=== PATIENT | male | born 1945 | race Caucasian/White ===

== ENCOUNTER → 2016-12-29 | Outpatient (REF) | payer MEDICARE, OTHER ==
[~2016-12-29] MED LIST: ASPI325T28 PO; ATEN25TA PO; COPA20IN SC; CRES40TA PO; CYMB60CA3 PO; METH2.5TA PO; OMEP40CA2 PO; [UNRECOGNIZED DRUG - REMARK] PO
[2016-12-29 16:00] LABS: ALBUMIN 3.7 GM/DL (3.2-5.2); ALBUMIN/GLOBULIN RATIO 1.19 (1.00-1.93); ALKALINE PHOSPHATASE 77 U/L (45-117); ALT/SGPT 27 U/L (12-78); ANION GAP 7 MEQ/L (8-16); AST/SGOT 18 U/L (15-37); BILIRUBIN,TOTAL 0.4 MG/DL (0.2-1.0); BLOOD UREA NITROGEN 20 MG/DL (7-18); CALCIUM LEVEL 8.5 MG/DL (8.8-10.2); CARBON DIOXIDE LEVEL 29 MEQ/L (21-32); CHLORIDE LEVEL 106 MEQ/L (98-107); CHOLESTEROL LEVEL 196 MG/DL (<200); CREATININE FOR GFR 1.18 MG/DL (0.70-1.30); GLOMERULAR FILTRATION RATE > 60.0 (>42); GLUCOSE, FASTING 131 MG/DL (83-110); POTASSIUM SERUM 4.5 MEQ/L (3.5-5.1); SODIUM LEVEL 142 MEQ/L (136-145); TOTAL PROTEIN 6.8 GM/DL (6.4-8.2); TRIGLYCERIDES LEVEL 159 MG/DL (<150)
== END ==
LOC: M SFHCSACK 07:58
PROVIDERS: ATTEND Physician Assistant
DX: I10 Essential (primary) hypertension (principal); E78.5 Hyperlipidemia, unspecified; E11.49 Type 2 diabetes mellitus with other diabetic neurological complication; E55.9 Vitamin D deficiency, unspecified

== ENCOUNTER → 2017-06-29 | Outpatient (REF) | payer MEDICARE, OTHER ==
[2017-06-29 16:27] LABS: ALBUMIN 3.5 GM/DL (3.2-5.2); ALBUMIN/GLOBULIN RATIO 1.13 (1.00-1.93); ALKALINE PHOSPHATASE 83 U/L (45-117); ALT/SGPT 34 U/L (12-78); ANION GAP 9 MEQ/L (8-16); AST/SGOT 20 U/L (15-37); BILIRUBIN,TOTAL 0.3 MG/DL (0.2-1.0); BLOOD UREA NITROGEN 23 MG/DL (7-18); CALCIUM LEVEL 8.7 MG/DL (8.8-10.2); CARBON DIOXIDE LEVEL 27 MEQ/L (21-32); CHLORIDE LEVEL 109 MEQ/L (98-107); CHOLESTEROL LEVEL 142 MG/DL (<200); CREATININE FOR GFR 1.11 MG/DL (0.70-1.30); GLOMERULAR FILTRATION RATE > 60.0 (>42); GLUCOSE, FASTING 124 MG/DL (83-110); POTASSIUM SERUM 4.4 MEQ/L (3.5-5.1); SODIUM LEVEL 145 MEQ/L (136-145); TOTAL PROTEIN 6.6 GM/DL (6.4-8.2); TRIGLYCERIDES LEVEL 168 MG/DL (<150)
== END ==
LOC: M SFHCSACK 08:21
PROVIDERS: ATTEND Physician Assistant
DX: I10 Essential (primary) hypertension (principal); E78.5 Hyperlipidemia, unspecified; E11.49 Type 2 diabetes mellitus with other diabetic neurological complication; E55.9 Vitamin D deficiency, unspecified

== ENCOUNTER → 2017-09-30 | Outpatient (REF) | payer MEDICARE, OTHER ==
[2017-09-30 15:09] LABS: BASO # 0.1 10^3/uL (0.0-0.2); BASO % 0.7 % (0.0-1.0); EOS # 0.6 10^3/uL (0.0-0.50); IMMATURE GRANULOCYTE % 0.2 % (0-0); LYMPH # 1.5 10^3/uL (1.5-4.5); LYMPH % 17.2 % (24.0-44.0); MEAN CORPUSCULAR HEMOGLOBIN 32.4 pg (27.0-33.0); MEAN CORPUSCULAR HGB CONC 33.9 g/dl (32.0-36.5); MEAN CORPUSCULAR VOLUME 95.7 fl (80.0-96.0); MONO # 0.7 10^3/uL (0.0-0.8); MONO % 7.8 % (0.0-5.0); NEUTROPHILS % 67.1 % (36.0-66.0); PLATELET COUNT, AUTOMATED 206 10^3/uL (150-450); RED CELL DISTRIBUTION WIDTH 13.1 % (11.5-14.5); WHITE BLOOD COUNT 8.9 10^3/uL (4.0-10.0)
[2017-09-30 15:25] LABS: ALBUMIN 3.7 GM/DL (3.2-5.2); ALBUMIN/GLOBULIN RATIO 1.12 (1.00-1.93); ALKALINE PHOSPHATASE 72 U/L (45-117); ALT/SGPT 26 U/L (12-78); ANION GAP 7 MEQ/L (8-16); AST/SGOT 17 U/L (7-37); BILIRUBIN,TOTAL 0.5 MG/DL (0.2-1.0); BLOOD UREA NITROGEN 19 MG/DL (7-18); CALCIUM LEVEL 8.7 MG/DL (8.8-10.2); CARBON DIOXIDE LEVEL 30 MEQ/L (21-32); CHLORIDE LEVEL 104 MEQ/L (98-107); CHOLESTEROL LEVEL 101 MG/DL (<200); CREATININE FOR GFR 1.11 MG/DL (0.70-1.30); GLOMERULAR FILTRATION RATE > 60.0 (>42); GLUCOSE, FASTING 124 MG/DL (83-110); POTASSIUM SERUM 4.5 MEQ/L (3.5-5.1); SODIUM LEVEL 141 MEQ/L (136-145); TRIGLYCERIDES LEVEL 192 MG/DL (<150)
== END ==
LOC: M SFHCSACK 08:15
PROVIDERS: ATTEND Physician Assistant
DX: I10 Essential (primary) hypertension (principal); E78.5 Hyperlipidemia, unspecified; E11.9 Type 2 diabetes mellitus without complications

== ENCOUNTER 2017-12-29 11:56 | Day surgery (SDC) | payer MEDICARE, OTHER ==
[2017-12-29] MEDS: LR 1,000 ML IV (12:00)
[2017-12-29] MEDS ORDERED: PROPOFOL 200 MG/20 ML VIAL As Ordered ×3 (13:10→13:46)
== END 2017-12-29 14:47 | disposition home or self-care (01) ==
LOC: M OPP 11:56
DX: Z12.11 Encounter for screening for malignant neoplasm of colon (principal); D12.2 Benign neoplasm of ascending colon; D12.4 Benign neoplasm of descending colon; D12.3 Benign neoplasm of transverse colon; I10 Essential (primary) hypertension; G35 Multiple sclerosis; E11.9 Type 2 diabetes mellitus without complications; Z79.82 Long term (current) use of aspirin; Z79.899 Other long term (current) drug therapy
CPT/HCPCS: 45385

== ENCOUNTER → 2017-12-30 | Outpatient (REF) | payer MEDICARE, OTHER ==
[2017-12-30 14:16] LABS: BASO # 0.1 10^3/uL (0.0-0.2); BASO % 0.6 % (0.0-1.0); EOS # 0.5 10^3/uL (0.0-0.50); EOS % 5.4 % (0.0-3.0); HEMATOCRIT 43.3 % (42.0-52.0); HEMOGLOBIN 14.6 g/dl (14.0-18.0); IMMATURE GRANULOCYTE % 0.3 % (0-3.0); LYMPH # 1.9 10^3/uL (1.5-4.5); LYMPH % 19.6 % (24.0-44.0); MEAN CORPUSCULAR HEMOGLOBIN 32.3 pg (27.0-33.0); MEAN CORPUSCULAR HGB CONC 33.7 g/dl (32.0-36.5); MEAN CORPUSCULAR VOLUME 95.8 fl (80.0-96.0); MONO # 0.7 10^3/uL (0.0-0.8); MONO % 7.2 % (0.0-5.0); NEUTROPHILS # 6.4 10^3/uL (1.8-7.7); NEUTROPHILS % 66.9 % (36.0-66.0); PLATELET COUNT, AUTOMATED 209 10^3/uL (150-450); RED BLOOD COUNT 4.52 10^6/uL (4.30-6.10); RED CELL DISTRIBUTION WIDTH 13.4 % (11.5-14.5); WHITE BLOOD COUNT 9.5 10^3/uL (4.0-10.0)
[2017-12-30 14:33] LABS: ALBUMIN 3.6 GM/DL (3.2-5.2); ALBUMIN/GLOBULIN RATIO 1.06 (1.00-1.93); ALKALINE PHOSPHATASE 79 U/L (45-117); ALT/SGPT 30 U/L (12-78); ANION GAP 7 MEQ/L (8-16); AST/SGOT 23 U/L (7-37); BILIRUBIN,TOTAL 0.2 MG/DL (0.2-1.0); BLOOD UREA NITROGEN 21 MG/DL (7-18); CALCIUM LEVEL 8.6 MG/DL (8.8-10.2); CARBON DIOXIDE LEVEL 26 MEQ/L (21-32); CHLORIDE LEVEL 112 MEQ/L (98-107); CREATININE FOR GFR 1.17 MG/DL (0.70-1.30); GLOMERULAR FILTRATION RATE > 60.0 (>42); GLUCOSE, FASTING 140 MG/DL (70-100); POTASSIUM SERUM 4.7 MEQ/L (3.5-5.1); PSA SCREENING 3.59 NG/ML (< 4.0); SODIUM LEVEL 145 MEQ/L (136-145)
[2017-12-30 14:35] LABS: ESTIMATED AVERAGE GLUCOSE 177 MG/DL (60-110); HEMOGLOBIN A1c 7.8 %
[2017-12-30 14:36] LABS: TOTAL 25(OH) VITAMIN D 19.8 NG/ML (30.0-100.0)
== END ==
LOC: M SFHCSACK 08:37
DX: E55.9 Vitamin D deficiency, unspecified (principal); I10 Essential (primary) hypertension; E11.9 Type 2 diabetes mellitus without complications; Z12.5 Encounter for screening for malignant neoplasm of prostate
CPT/HCPCS: 80053

== ENCOUNTER → 2018-04-29 | Outpatient (REF) | payer MEDICARE, OTHER ==
[2018-04-29 12:33] LABS: BASO % 0.4 % (0.0-1.0); EOS # 0.9 10^3/uL (0.0-0.50); EOS % 9.9 % (0.0-3.0); HEMATOCRIT 44.3 % (42.0-52.0); HEMOGLOBIN 14.6 g/dl (13.5-17.5); IMMATURE GRANULOCYTE % 0.4 % (0-3.0); LYMPH # 1.7 10^3/uL (1.5-4.5); LYMPH % 17.8 % (24.0-44.0); MEAN CORPUSCULAR HEMOGLOBIN 32.2 pg (27.0-33.0); MEAN CORPUSCULAR VOLUME 97.8 fl (80.0-96.0); MONO # 0.8 10^3/uL (0.0-0.8); MONO % 8.1 % (0.0-5.0); NEUTROPHILS # 5.9 10^3/uL (1.8-7.7); NEUTROPHILS % 63.4 % (36.0-66.0); PLATELET COUNT, AUTOMATED 162 10^3/uL (150-450); RED BLOOD COUNT 4.53 10^6/uL (4.30-6.10); RED CELL DISTRIBUTION WIDTH 13.2 % (11.5-14.5); WHITE BLOOD COUNT 9.3 10^3/uL (4.0-10.0)
[2018-04-29 13:26] LABS: ALBUMIN 3.7 GM/DL (3.2-5.2); ALBUMIN/GLOBULIN RATIO 1.12 (1.00-1.93); ALKALINE PHOSPHATASE 78 U/L (45-117); ALT/SGPT 28 U/L (12-78); ANION GAP 9 MEQ/L (8-16); AST/SGOT 20 U/L (7-37); BILIRUBIN,TOTAL 0.4 MG/DL (0.2-1.0); BLOOD UREA NITROGEN 28 MG/DL (7-18); CALCIUM LEVEL 8.9 MG/DL (8.8-10.2); CARBON DIOXIDE LEVEL 28 MEQ/L (21-32); CHLORIDE LEVEL 106 MEQ/L (98-107); GLOMERULAR FILTRATION RATE > 60.0 (>42); GLUCOSE, FASTING 127 MG/DL (70-100); POTASSIUM SERUM 4.4 MEQ/L (3.5-5.1); SODIUM LEVEL 143 MEQ/L (136-145)
[2018-04-29 13:39] LABS: TOTAL 25(OH) VITAMIN D 82.3 NG/ML (30.0-100.0)
[2018-04-29 14:14] LABS: ESTIMATED AVERAGE GLUCOSE 160 MG/DL (60-110); HEMOGLOBIN A1c 7.2 %
== END ==
LOC: M LABDRAW1 11:56
DX: I10 Essential (primary) hypertension (principal); E78.5 Hyperlipidemia, unspecified; E11.9 Type 2 diabetes mellitus without complications; E55.9 Vitamin D deficiency, unspecified; Z79.899 Other long term (current) drug therapy
CPT/HCPCS: 80053

== ENCOUNTER → 2018-07-07 | Outpatient (CLI) | payer MEDICARE, OTHER ==
[2018-07-07 15:06] LABS: CREATININE FOR GFR 1.19 MG/DL (0.70-1.30); GLOMERULAR FILTRATION RATE > 60.0 (>42)
[2018-07-07 15:06] LABS: BLOOD UREA NITROGEN 28 MG/DL (7-18)
== END ==
LOC: M SFHCSACK 10:08
DX: N18.9 Chronic kidney disease, unspecified (principal)
CPT/HCPCS: 82565

== ENCOUNTER → 2018-08-09 | Outpatient (REF) | payer MEDICARE, OTHER ==
[2018-08-09 15:20] LABS: ALBUMIN 3.8 GM/DL (3.2-5.2); ALBUMIN/GLOBULIN RATIO 1.27 (1.00-1.93); ALKALINE PHOSPHATASE 69 U/L (45-117); ALT/SGPT 25 U/L (12-78); ANION GAP 6 MEQ/L (8-16); AST/SGOT 20 U/L (7-37); BILIRUBIN,TOTAL 0.4 MG/DL (0.2-1.0); BLOOD UREA NITROGEN 21 MG/DL (7-18); CARBON DIOXIDE LEVEL 28 MEQ/L (21-32); CHLORIDE LEVEL 107 MEQ/L (98-107); CHOLESTEROL LEVEL 108 MG/DL (<200); CREATININE FOR GFR 1.14 MG/DL (0.70-1.30); GLOMERULAR FILTRATION RATE > 60.0 (>42); GLUCOSE, FASTING 148 MG/DL (70-100); HDL CHOLESTEROL 36 MG/DL (>40); LDL CHOLESTEROL 16 MG/DL (<100); NON-HDL-C 72 MG/DL; POTASSIUM SERUM 4.6 MEQ/L (3.5-5.1); SODIUM LEVEL 141 MEQ/L (136-145); TOTAL PROTEIN 6.8 GM/DL (6.4-8.2); TRIGLYCERIDES LEVEL 278 MG/DL (<150)
[2018-08-09 15:22] LABS: BASO # 0.1 10^3/uL (0.0-0.2); BASO % 0.7 % (0.0-1.0); EOS # 0.8 10^3/uL (0.0-0.50); EOS % 8.9 % (0.0-3.0); HEMATOCRIT 44.6 % (42.0-52.0); HEMOGLOBIN 14.7 g/dl (13.5-17.5); IMMATURE GRANULOCYTE % 0.3 % (0-3.0); LYMPH # 1.8 10^3/uL (1.5-4.5); LYMPH % 20.2 % (24.0-44.0); MEAN CORPUSCULAR HEMOGLOBIN 32.4 pg (27.0-33.0); MEAN CORPUSCULAR VOLUME 98.2 fl (80.0-96.0); MONO # 0.6 10^3/uL (0.0-0.8); MONO % 6.9 % (0.0-5.0); NEUTROPHILS # 5.6 10^3/uL (1.8-7.7); PLATELET COUNT, AUTOMATED 189 10^3/uL (150-450); RED BLOOD COUNT 4.54 10^6/uL (4.30-6.10); RED CELL DISTRIBUTION WIDTH 13.6 % (11.5-14.5); WHITE BLOOD COUNT 8.9 10^3/uL (4.0-10.0)
[2018-08-09 15:26] LABS: ESTIMATED AVERAGE GLUCOSE 160 MG/DL (60-110); HEMOGLOBIN A1c 7.2 %; TOTAL 25(OH) VITAMIN D 61.8 NG/ML (30.0-100.0)
[2018-08-09 15:35] LABS: CREATININE, URINE 90.8 MG/DL; MAU/CREAT RATIO 159.7 MCG/MG (0.0-30.0)
== END ==
LOC: M SFHCSACK 08:21
DX: E78.5 Hyperlipidemia, unspecified (principal); I10 Essential (primary) hypertension; E11.9 Type 2 diabetes mellitus without complications; E55.9 Vitamin D deficiency, unspecified
CPT/HCPCS: 80053

== ENCOUNTER → 2019-02-14 | Outpatient (REF) | payer MEDICARE, OTHER ==
[~2019-02-14] MED LIST changes: +ASPI-222 PO; -ASPI325T28 PO; +METH2.5T48 PO; -METH2.5TA PO; +REPA1.7I SC
[2019-02-14 14:32] LABS: BASO # 0.1 10^3/uL (0.0-0.2); BASO % 0.8 % (0.0-1.0); EOS # 0.5 10^3/uL (0.0-0.50); EOS % 6.2 % (0.0-3.0); HEMATOCRIT 43.6 % (42.0-52.0); HEMOGLOBIN 14.4 g/dl (13.5-17.5); LYMPH # 1.8 10^3/uL (1.5-4.5); LYMPH % 21.9 % (24.0-44.0); MEAN CORPUSCULAR HEMOGLOBIN 31.6 pg (27.0-33.0); MEAN CORPUSCULAR VOLUME 95.6 fl (80.0-96.0); MONO # 0.6 10^3/uL (0.0-0.8); MONO % 6.8 % (0.0-5.0); NEUTROPHILS # 5.3 10^3/uL (1.8-7.7); NEUTROPHILS % 63.8 % (36.0-66.0); PLATELET COUNT, AUTOMATED 200 10^3/uL (150-450); RED BLOOD COUNT 4.56 10^6/uL (4.30-6.10); WHITE BLOOD COUNT 8.3 10^3/uL (4.0-10.0)
[2019-02-14 14:41] LABS: ALBUMIN 3.5 GM/DL (3.2-5.2); BILIRUBIN,TOTAL 0.5 MG/DL (0.2-1.0); CALCIUM LEVEL 8.4 MG/DL (8.8-10.2); CHOLESTEROL RISK RATIO 3.775 (<5); CREATININE FOR GFR 1.27 MG/DL (0.70-1.30); GLOMERULAR FILTRATION RATE 58.9 (>42); POTASSIUM SERUM 4.4 MEQ/L (3.5-5.1); TOTAL PROTEIN 7.3 GM/DL (6.4-8.2)
[2019-02-14 15:18] LABS: HEMOGLOBIN A1c 7.4 %
== END ==
LOC: M SFHCSACK 08:19
PROVIDERS: ATTEND Physician Assistant
DX: G35 Multiple sclerosis (principal); E78.5 Hyperlipidemia, unspecified; E11.9 Type 2 diabetes mellitus without complications; E55.9 Vitamin D deficiency, unspecified

== ENCOUNTER → 2019-08-26 | Outpatient (REF) | payer MEDICARE, OTHER ==
[~2019-08-26] MED LIST changes: -ASPI-222 PO; +ASPI-527 PO; -OMEP40CA2 PO; +OMEP40CA97 PO
[2019-08-26 14:39] LABS: BASO % 0.5 % (0.0-1.0); EOS # 0.3 10^3/uL (0.0-0.5); EOS % 4.6 % (0.0-3.0); HEMATOCRIT 42.3 % (42.0-52.0); HEMOGLOBIN 13.9 g/dl (13.5-17.5); LYMPH # 1.3 10^3/uL (1.5-5.0); MEAN CORPUSCULAR HGB CONC 32.9 g/dl (32.0-36.5); MEAN CORPUSCULAR VOLUME 97.2 fl (80.0-96.0); MONO # 0.6 10^3/uL (0.0-0.8); MONO % 7.8 % (0.0-5.0); NEUTROPHILS # 5.1 10^3/uL (1.5-8.5); PLATELET COUNT, AUTOMATED 197 10^3/uL (150-450); RED BLOOD COUNT 4.35 10^6/uL (4.30-6.10); WHITE BLOOD COUNT 7.4 10^3/uL (4.0-10.0)
[2019-08-26 14:51] LABS: ALBUMIN 3.5 GM/DL (3.2-5.2); ALT/SGPT 24 U/L (12-78); BILIRUBIN,TOTAL 0.6 MG/DL (0.2-1.0); BLOOD UREA NITROGEN 23 MG/DL (7-18); CALCIUM LEVEL 8.4 MG/DL (8.8-10.2); CARBON DIOXIDE LEVEL 27 MEQ/L (21-32); CHLORIDE LEVEL 106 MEQ/L (98-107); CHOLESTEROL LEVEL 124 MG/DL (<200); CREATININE FOR GFR 1.19 MG/DL (0.70-1.30); FREE T4 0.86 NG/DL (0.76-1.46); GLOMERULAR FILTRATION RATE > 60.0 (>42); GLUCOSE, FASTING 130 MG/DL (70-100); HDL CHOLESTEROL 40 MG/DL (>40); LDL CHOLESTEROL 44 MG/DL (<100); NON-HDL-C 84 MG/DL; POTASSIUM SERUM 4.3 MEQ/L (3.5-5.1); SODIUM LEVEL 140 MEQ/L (136-145); TOTAL PROTEIN 6.7 GM/DL (6.4-8.2); TRIGLYCERIDES LEVEL 199 MG/DL (<150)
[2019-08-26 14:53] LABS: TOTAL 25(OH) VITAMIN D 68.2 NG/ML (30.0-100.0)
[2019-08-26 15:08] LABS: CREATININE, URINE 92.2 MG/DL
[2019-08-26 15:12] LABS: HEMOGLOBIN A1c 7.8 %
== END ==
LOC: M SFHCSACK 08:29
PROVIDERS: ATTEND Physician Assistant
DX: I10 Essential (primary) hypertension (principal); E78.5 Hyperlipidemia, unspecified; Z83.49 Family history of other endocrine, nutritional and metabolic diseases; E11.9 Type 2 diabetes mellitus without complications; Z12.5 Encounter for screening for malignant neoplasm of prostate; E55.9 Vitamin D deficiency, unspecified
CPT/HCPCS: 36415; 80053; 80061; 82043; 82306; 83036; 84439; 84443; 85025; G0103

== ENCOUNTER → 2020-05-01 | Outpatient (REF) | payer MEDICARE, OTHER ==
[~2020-05-01] MED LIST changes: -REPA1.7I SC; +REPA140I SC
[2020-05-01 13:36] LABS: CALCIUM LEVEL 9.3 MG/DL (8.8-10.2); CREATININE FOR GFR 1.73 MG/DL (0.70-1.30); GLOMERULAR FILTRATION RATE 41.1 (>42); POTASSIUM SERUM 4.6 MEQ/L (3.5-5.1)
[2020-05-01 13:42] LABS: HEMOGLOBIN A1c 8.9 %
== END ==
LOC: M PLALAB 12:56
PROVIDERS: ATTEND Physician Assistant
DX: E11.9 Type 2 diabetes mellitus without complications (principal)

== ENCOUNTER → 2020-10-08 | Outpatient (REF) | payer MEDICARE, OTHER ==
[2020-10-08 10:58] LABS: HEMOGLOBIN A1c 7.8 %
[2020-10-08 11:07] LABS: ALBUMIN 3.7 GM/DL (3.2-5.2); BILIRUBIN,TOTAL 0.5 MG/DL (0.2-1.0); CALCIUM LEVEL 9.3 MG/DL (8.8-10.2); CHOLESTEROL RISK RATIO 4.23 (<5); CREATININE FOR GFR 1.59 MG/DL (0.70-1.30); GLOMERULAR FILTRATION RATE 45.3 (>42); POTASSIUM SERUM 4.4 MEQ/L (3.5-5.1); TOTAL 25(OH) VITAMIN D 63.4 NG/ML (30.0-100.0); TOTAL PROTEIN 7.1 GM/DL (6.4-8.2)
== END ==
LOC: M PLALAB 08:10
PROVIDERS: ATTEND Physician Assistant
DX: Z12.5 Encounter for screening for malignant neoplasm of prostate (principal); I10 Essential (primary) hypertension; E11.9 Type 2 diabetes mellitus without complications; E78.5 Hyperlipidemia, unspecified; E55.9 Vitamin D deficiency, unspecified
CPT/HCPCS: 36415; 80053; 80061; 82306; 83036; G0103

== ENCOUNTER → 2022-05-06 | Outpatient (CLI) | payer MEDICARE, OTHER ==
[~2022-05-06] MED LIST changes: -CYMB60CA3 PO; +CYMB60CA4 PO; +OMEP40CA4 PO; -OMEP40CA97 PO
[2022-05-06 14:45] LABS: CALCIUM LEVEL 8.8 MG/DL (8.8-10.2); CREATININE FOR GFR 1.54 MG/DL (0.70-1.30); GLOMERULAR FILTRATION RATE 46.7 (>42); POTASSIUM SERUM 4.4 MEQ/L (3.5-5.1)
[2022-05-06 15:46] LABS: HEMOGLOBIN A1c 8.9 %
== END ==
LOC: M PLALAB 09:47
PROVIDERS: ATTEND Family Medicine
DX: E11.9 Type 2 diabetes mellitus without complications (principal)

== ENCOUNTER → 2022-06-10 | Outpatient (REF) | payer MEDICARE, OTHER ==
[2022-06-10 13:20] LABS: HEMATOCRIT 47.6 % (42.0-52.0); HEMOGLOBIN 15.5 g/dl (13.5-17.5); MEAN CORPUSCULAR HEMOGLOBIN 31.4 pg (27.0-33.0); MEAN CORPUSCULAR HGB CONC 32.6 g/dl (32.0-36.5); MEAN CORPUSCULAR VOLUME 96.4 fl (80.0-96.0); PLATELET COUNT, AUTOMATED 177 10^3/uL (150-450); RED BLOOD COUNT 4.94 10^6/uL (4.30-6.10); WHITE BLOOD COUNT 8.5 10^3/uL (4.0-10.0)
[2022-06-10 14:08] LABS: CALCIUM LEVEL 9.2 MG/DL (8.8-10.2); CREATININE FOR GFR 1.6 MG/DL (0.70-1.30); GLOMERULAR FILTRATION RATE 44.7 (>42); POTASSIUM SERUM 4.4 MEQ/L (3.5-5.1); PROSTATIC SPECIFIC AG MONITOR 4.98 NG/ML (< 4.00)
[2022-06-10 18:33] LABS: HEMOGLOBIN A1c 8.8 %
== END ==
LOC: M SFHCADAM 11:14
PROVIDERS: ATTEND Family Medicine
DX: E11.65 Type 2 diabetes mellitus with hyperglycemia (principal); N18.32 Chronic kidney disease, stage 3b; R97.20 Elevated prostate specific antigen [PSA]

== ENCOUNTER → 2022-10-16 | Outpatient (REF) | payer MEDICARE, OTHER ==
[2022-10-16 16:08] LABS: APPEARANCE, URINE MANUAL CLEAR (CLEAR); COLOR, URINE MANUAL LT YELLOW (YELLOW); SPECIFIC GRAVITY,URINE MANUAL 1.015 (1.002-1.035)
[2022-10-16 16:09] LABS: BILIRUBIN, URINE MANUAL NEGATIVE (NEGATIVE); BLOOD URINE MANUAL NEGATIVE (NEGATIVE); GLUCOSE, URINE (UA) MANUAL 4+(1000 MG/DL) mg/dL (NEGATIVE); KETONE, URINE MANUAL NEGATIVE (NEGATIVE); LEUKOCYTE ESTERASE, URINE MAN NEGATIVE (NEGATIVE); NITRITE, URINE MANUAL NEGATIVE (NEGATIVE); PROTEIN, URINE MANUAL NEGATIVE (NEGATIVE); UROBILINOGEN, URINE MANUAL NORMAL (NORMAL)
== END ==
LOC: M SFHCADAM 10:34
PROVIDERS: ATTEND Physician Assistant Medical
DX: R97.20 Elevated prostate specific antigen [PSA] (principal); N40.1 Benign prostatic hyperplasia with lower urinary tract symptoms

== ENCOUNTER → 2022-11-24 | Outpatient (REF) | payer MEDICARE, OTHER ==
[2022-11-24 19:04] LABS: APPEARANCE, URINE MANUAL CLEAR (CLEAR); BILIRUBIN, URINE MANUAL NEGATIVE (NEGATIVE); BLOOD URINE MANUAL NEGATIVE (NEGATIVE); COLOR, URINE MANUAL LT YELLOW (YELLOW); GLUCOSE, URINE (UA) MANUAL 4+(1000 MG/DL) mg/dL (NEGATIVE); KETONE, URINE MANUAL NEGATIVE (NEGATIVE); LEUKOCYTE ESTERASE, URINE MAN NEGATIVE (NEGATIVE); NITRITE, URINE MANUAL NEGATIVE (NEGATIVE); PROTEIN, URINE MANUAL NEGATIVE (NEGATIVE); SPECIFIC GRAVITY,URINE MANUAL 1.015 (1.002-1.035); UROBILINOGEN, URINE MANUAL NORMAL (NORMAL)
== END ==
LOC: M SMT 17:03
PROVIDERS: ATTEND Specialist
DX: G35 Multiple sclerosis (principal)

== ENCOUNTER 2022-12-04 23:06 | Inpatient (IN) | payer MEDICARE, OTHER ==
[~2022-12-04] VITALS: Ht 160 cm; Wt 83.1 kg
[2022-12-04 23:49] LABS: BASO # 0.1 10^3/uL (0.0-0.2); BASO % 0.3 % (0.0-1.0); EOS # 0.1 10^3/uL (0.0-0.5); EOS % 0.5 % (0.0-3.0); HEMATOCRIT 45.5 % (42.0-52.0); HEMOGLOBIN 15.3 g/dl (13.5-17.5); LYMPH # 0.5 10^3/uL (1.5-5.0); LYMPH % 3.3 % (24.0-44.0); MEAN CORPUSCULAR HEMOGLOBIN 31.7 pg (27.0-33.0); MEAN CORPUSCULAR HGB CONC 33.6 g/dl (32.0-36.5); MEAN CORPUSCULAR VOLUME 94.4 fl (80.0-96.0); MONO # 1.2 10^3/uL (0.0-0.8); MONO % 8.1 % (2.0-8.0); NEUTROPHILS # 12.9 10^3/uL (1.5-8.5); NEUTROPHILS % 87.3 % (36.0-66.0); PLATELET COUNT, AUTOMATED 162 10^3/uL (150-450); RED BLOOD COUNT 4.82 10^6/uL (4.30-6.10); WHITE BLOOD COUNT 14.8 10^3/uL (4.0-10.0)
[2022-12-05] VITALS (66 sets, daily range): BP systolic 77–119; BP diastolic 49–68; O2SAT 96
[2022-12-05 00:14] LABS: ALBUMIN 3.6 G/DL (3.2-5.2); BILIRUBIN,TOTAL 0.6 MG/DL (0.3-1.2); CREATININE FOR GFR 1.53 MG/DL (0.70-1.30); GLOMERULAR FILTRATION RATE 47.1 (>42); MAGNESIUM LEVEL 1.9 MG/DL (1.8-2.4); POTASSIUM SERUM 4.2 MMOL/L (3.5-5.1); TOTAL PROTEIN 6.8 G/DL (5.7-8.2)
[2022-12-05] MEDS ORDERED: NS 1,000 ML IV ONE ×4 (01:35→14:55)
[2022-12-05] MEDS ORDERED: PANTOPRAZOLE 40MG VIAL IV SCH ×2 (03:00→09:00)
[2022-12-05] MEDS ORDERED: ACETAMINOPHEN TAB 650MG DOSE (2X325MG) PO ONE (03:05)
[2022-12-05] MEDS ORDERED: ISOVUE-370 76% 100ML VIAL As Ordered ONE (03:08)
[2022-12-05] MEDS ORDERED: ONDANSETRON 4MG 2ML VIAL IV ONE (03:10)
[2022-12-05] MEDS ORDERED: cefTRIAXone SOD 1 GM in D5W MINI-BAG PLUS 50 ML IV ONE (04:00)
[2022-12-05 04:20] LABS: CK-MB VALUE MASS 1.5 NG/ML (<3.6)
[2022-12-05] MEDS ORDERED: HYDROMORPHONE HCL 0.5 MG/ 0.5 ML SYRINGE IV PRN (04:40)
[2022-12-05] MEDS ORDERED: PIPERACILLIN/TAZOBACTAM SOD 2.25 GM in D5W MINI-BAG PLUS 50 ML IV SCH (04:40)
[2022-12-05] MEDS ORDERED: GLUCAGON INJ 1MG VIAL SC PRN (04:40)
[2022-12-05] MEDS ORDERED: ACETAMINOPHEN TAB 650MG DOSE (2X325MG) PO PRN (04:40)
[2022-12-05] MEDS ORDERED: GLUCOSE 4GM CHEW TABLET PO PRN (04:40)
[2022-12-05 04:47] LABS: MB/CK RELATIVE INDEX 0.79 (< OR =4)
[2022-12-05] MEDS ORDERED: SODIUM CHLORIDE 0.9% 1000ML IV ONE (05:50)
[2022-12-05] MEDS: PIPERACILLIN/TAZOBACTAM SOD 2.25 GM in D5W MINI-BAG PLUS 50 ML IV SCH ×3 (05:59→17:57)
[2022-12-05] MEDS: INSULIN LISPRO (NovoLOG) PER UNIT SC SCH ×3 (06:23→17:58)
[2022-12-05 06:40] LABS: APPEARANCE, URINE TURBID (CLEAR); BACTERIA, URINE AUTO 2+ (NEGATIVE); BILIRUBIN, URINE AUTO NEGATIVE (NEGATIVE); BLOOD, URINE BLOOD 3+ (NEGATIVE); COLOR, URINE YELLOW (YELLOW); GLUCOSE, URINE (UA) AUTO 3+ mg/dL (NEGATIVE); KETONE, URINE AUTO TRACE mg/dL (NEGATIVE); LEUKOCYTE ESTERASE, URINE AUTO 3+ (NEGATIVE); NITRITE, URINE AUTO NEGATIVE (NEGATIVE); PROTEIN, URINE AUTO 2+ mg/dL (NEGATIVE); RBC, URINE AUTO TNTC /HPF (0-3); SQUAMOUS EPITHELIAL CELL UR AU 1 /HPF (0-6); UROBILINOGEN, URINE AUTO 0.2 mg/dL (0.0-2.0); WBC, URINE AUTO TNTC /HPF (0-3)
[2022-12-05] MEDS: NS 1,000 ML IV SCH ×2 (06:58→15:59)
[2022-12-05] MEDS ORDERED: ACETAMINOPHEN 650MG SUPP PR ONE (07:15)
[2022-12-05] MEDS ORDERED: ACETAMINOPHEN 1000MG 100ML IV BAG IV ONE ×2 (07:30→07:35)
[2022-12-05] MEDS ORDERED: MORPHINE 2 MG/ML 1ML VIAL IV PRN ×3 (07:35→11:05)
[2022-12-05 08:52] LABS: ALBUMIN 2.7 G/DL (3.2-5.2); BILIRUBIN,TOTAL 1.7 MG/DL (0.3-1.2); CALCIUM LEVEL 7.4 MG/DL (8.3-10.6); GLOMERULAR FILTRATION RATE 34.6 (>42); POTASSIUM SERUM 3.8 MMOL/L (3.5-5.1); TOTAL PROTEIN 5.4 G/DL (5.7-8.2)
[2022-12-05] MEDS ORDERED: HEPARIN SOD (PORCINE) 5000UNITS/ML 1ML VIAL/SYRINGE SC SCH (09:00)
[2022-12-05 09:08] LABS: HEMATOCRIT 44.5 % (42.0-52.0); HEMOGLOBIN 14.3 g/dl (13.5-17.5); RED BLOOD COUNT 4.57 10^6/uL (4.30-6.10); WHITE BLOOD COUNT 2.2 10^3/uL (4.0-10.0)
[2022-12-05 09:09] LABS: BASO % 0.4 % (0.0-1.0); EOS % 0.4 % (0.0-3.0); LYMPH # 0.2 10^3/uL (1.5-5.0); LYMPH % 7.6 % (24.0-44.0); MEAN CORPUSCULAR HEMOGLOBIN 31.3 pg (27.0-33.0); MEAN CORPUSCULAR HGB CONC 32.1 g/dl (32.0-36.5); MEAN CORPUSCULAR VOLUME 97.4 fl (80.0-96.0); MONO % 0.9 % (2.0-8.0); NEUTROPHILS % 89.8 % (36.0-66.0)
[2022-12-05 09:32] LABS: PLATELET COUNT, AUTOMATED 88 10^3/uL (150-450)
[2022-12-05] MEDS ORDERED: LIDOCAINE 2% 5ML JELLY UROJET As Ordered ONE (09:33)
[2022-12-05] MEDS ORDERED: ISOVUE-300 61% 100ML VIAL As Ordered ONE (09:34)
[2022-12-05 09:49] LABS: INR 2.12; PROTHROMBIN TIME 24.1 SECONDS (12.5-14.5)
[2022-12-05 09:50] LABS: PARTIAL THROMBOPLASTIN TIME 89.3 SECONDS (24.8-34.2)
[2022-12-05] MEDS ORDERED: PHENYLephrine 500MCG 5ML (100MCG/ML) SYRINGE As Ordered ONE ×3 (10:12→10:41)
[2022-12-05] MEDS ORDERED: propofoL 200 MG/20 ML VIAL As Ordered ONE (10:12)
[2022-12-05] MEDS ORDERED: COPA1INJ SC (10:35)
[2022-12-05] MEDS ORDERED: OMEP1CAP73 PO (10:35)
[2022-12-05] MEDS ORDERED: TAMS1CAP17 PO (10:35)
[2022-12-05] MEDS ORDERED: BASA100I SC (10:35)
[2022-12-05] MEDS ORDERED: JARD1TAB3 PO (10:35)
[2022-12-05] MEDS ORDERED: ROPI1TAB3 PO (10:35)
[2022-12-05] MEDS ORDERED: FURO20TA2 PO (10:35)
[2022-12-05] MEDS ORDERED: ERGO500029 PO (10:35)
[2022-12-05] MEDS ORDERED: HOME MED LIST COMPLETE! XX SCH (10:40)
[2022-12-05] MEDS ORDERED: VASOPRESSIN INJ 20UNITS/ML 1ML VIAL As Ordered ONE ×2 (10:43→12:12)
[2022-12-05] MEDS ORDERED: fentaNYL 100 MCG/2 ML INJECTION IV PRN (11:05)
[2022-12-05] MEDS ORDERED: ONDANSETRON 4MG 2ML VIAL IV PRN (11:05)
[2022-12-05] MEDS ORDERED: LR 1,000 ML IV SCH (11:05)
[2022-12-05] MEDS ORDERED: oxyCODONE 5MG TAB PO PRN (11:05)
[2022-12-05] MEDS: PHENYLEPHRINE 10MG/ML 1ML VIAL IV PRN ×3 (11:43→11:53)
[2022-12-05] MEDS ORDERED: LR 500 ML IV ONE (11:50)
[2022-12-05] MEDS ORDERED: ePHEDrine INJ 50MG/ML 1ML VIAL IV PRN (12:00)
[2022-12-05] MEDS: PHENYLEPHRINE HCL INJ 10 MG in D5W 100 ML IV SCH ×2 (12:08→15:08)
[2022-12-05] MEDS ORDERED: VANCOMYCIN HCL 1,000 MG, VIAL MATE ADAPTER 1 EACH in NS 250 ML IV SCH (13:15)
[2022-12-05] MEDS ORDERED: INSULIN LISPRO (NovoLOG) PER UNIT SC SCH (13:25)
[2022-12-05] MEDS: NOREPINEPHRINE 4MG IN D5 250ML 4 MG in IV 1 EA IV SCH ×6 (13:30→22:10)
[2022-12-05] MEDS ORDERED: VANCOMYCIN HCL 750 MG, VIAL MATE ADAPTER 1 EACH in D5W 250 ML IV ONE ×2 (14:00→15:00)
[2022-12-05 14:23] LABS: BASO # 0.1 10^3/uL (0.0-0.2); BASO % 0.3 % (0.0-1.0); HEMATOCRIT 43.9 % (42.0-52.0); HEMOGLOBIN 13.8 g/dl (13.5-17.5); LYMPH # 0.6 10^3/uL (1.5-5.0); LYMPH % 3.6 % (24.0-44.0); MEAN CORPUSCULAR HEMOGLOBIN 31.3 pg (27.0-33.0); MEAN CORPUSCULAR HGB CONC 31.4 g/dl (32.0-36.5); MEAN CORPUSCULAR VOLUME 99.5 fl (80.0-96.0); MONO # 0.2 10^3/uL (0.0-0.8); MONO % 1.6 % (2.0-8.0); NEUTROPHILS # 14.1 10^3/uL (1.5-8.5); NEUTROPHILS % 93.8 % (36.0-66.0); RED BLOOD COUNT 4.41 10^6/uL (4.30-6.10); WHITE BLOOD COUNT 15.1 10^3/uL (4.0-10.0)
[2022-12-05 14:24] LABS: PLATELET COUNT, AUTOMATED 80 10^3/uL (150-450)
[2022-12-05 14:52] LABS: ALBUMIN 2.4 G/DL (3.2-5.2); BILIRUBIN,TOTAL 2.7 MG/DL (0.3-1.2); CALCIUM LEVEL 7.5 MG/DL (8.3-10.6); CREATININE FOR GFR 2.14 MG/DL (0.70-1.30); POTASSIUM SERUM 3.9 MMOL/L (3.5-5.1); TOTAL PROTEIN 4.9 G/DL (5.7-8.2)
[2022-12-05] MEDS: VASOPRESSIN INJ 20 UNITS in NS 499 ML IV SCH ×2 (15:22→23:06)
[2022-12-05 16:34] LABS: ABG BASE EXCESS -11.8 (-2.0-2.0); ABG HCO3 16.4 MEQ/L (22.0-26.0); ABG O2 SATURATION 92.7 % (95.0-99.0); ABG PARTIAL PRESSURE CO2 45.3 mmHg (35.0-45.0); ABG PARTIAL PRESSURE O2 78.8 mmHg (75.0-100.0); ABG STANDARD HCO3 15.3 MEQ/L (22.0-26.0); ABG TOTAL CO2 17.8 MEQ/L (23.0-31.0)
[2022-12-05 16:35] LABS: ABG pH (ARTERIAL) 7.176 UNITS (7.350-7.450)
[2022-12-05] MEDS ORDERED: VANCOMYCIN INTERMITTENT/PULSE DOSING BY CLINICAL PHARMACIST PER DOSING PROTOCOL XX SCH (16:55)
[2022-12-05 19:23] LABS: ABG BASE EXCESS -11.4 (-2.0-2.0); ABG HCO3 16.6 MEQ/L (22.0-26.0); ABG PARTIAL PRESSURE O2 77.9 mmHg (75.0-100.0); ABG STANDARD HCO3 15.6 MEQ/L (22.0-26.0)
[2022-12-05 19:24] LABS: ABG O2 SATURATION 93.3 % (95.0-99.0); ABG pH (ARTERIAL) 7.185 UNITS (7.350-7.450)
[2022-12-05] MEDS ORDERED: SODIUM BICARBONATE 8.4% INJ 50ML SYRINGE IV STA (19:42)
[2022-12-05] MEDS ORDERED: FUROSEMIDE 40MG/4ML VIAL IV ONE (20:15)
[2022-12-05] MEDS ORDERED: HYDROCORTISONE 100MG/2ML VIAL IV ONE (20:20)
[2022-12-05 20:45] LABS: ABG BASE EXCESS -9.1 (-2.0-2.0); ABG HCO3 16.8 MEQ/L (22.0-26.0); ABG O2 SATURATION 97.1 % (95.0-99.0); ABG PARTIAL PRESSURE CO2 36.4 mmHg (35.0-45.0); ABG PARTIAL PRESSURE O2 94.3 mmHg (75.0-100.0); ABG STANDARD HCO3 17.3 MEQ/L (22.0-26.0); ABG TOTAL CO2 17.9 MEQ/L (23.0-31.0); ABG pH (ARTERIAL) 7.281 UNITS (7.350-7.450)
[2022-12-06] VITALS (97 sets, daily range): BP systolic 79–154; BP diastolic 46–89
[2022-12-06] MEDS: PIPERACILLIN/TAZOBACTAM SOD 2.25 GM in D5W MINI-BAG PLUS 50 ML IV SCH ×2 (01:11→05:39)
[2022-12-06] MEDS: PANTOPRAZOLE 40MG VIAL IV SCH ×2 (02:44→14:27)
[2022-12-06] MEDS: NOREPINEPHRINE 4MG IN D5 250ML 4 MG in IV 1 EA IV SCH ×6 (03:14→21:51)
[2022-12-06 05:52] LABS: VENOUS HCO3 16.6 MEQ/L (23.0-27.0); VENOUS O2 SATURATION 92.1 % (60.0-80.0); VENOUS PARTIAL PRESSURE CO2 35.3 mmHg (38.0-50.0); VENOUS PARTIAL PRESSURE O2 66.3 mmHg (30.0-50.0); VENOUS PH 7.291 UNITS (7.330-7.430); VENOUS STANDARD HCO3 17.3 MEQ/L; VENOUS TOTAL CO2 17.7 MEQ/L (24.0-28.0)
[2022-12-06 05:55] LABS: HEMATOCRIT 44.8 % (42.0-52.0); HEMOGLOBIN 14.7 g/dl (13.5-17.5); MEAN CORPUSCULAR HEMOGLOBIN 31.9 pg (27.0-33.0); MEAN CORPUSCULAR HGB CONC 32.8 g/dl (32.0-36.5); MEAN CORPUSCULAR VOLUME 97.2 fl (80.0-96.0); RED BLOOD COUNT 4.61 10^6/uL (4.30-6.10); WHITE BLOOD COUNT 28.3 10^3/uL (4.0-10.0)
[2022-12-06] MEDS: INSULIN LISPRO (NovoLOG) PER UNIT SC SCH ×5 (06:00→23:42)
[2022-12-06 06:02] LABS: PLATELET COUNT, AUTOMATED 76 10^3/uL (150-450)
[2022-12-06 06:29] LABS: VANCOMYCIN RANDOM 11.4 UG/ML
[2022-12-06 06:35] LABS: ALBUMIN 2.4 G/DL (3.2-5.2); BILIRUBIN,TOTAL 3.8 MG/DL (0.3-1.2); CALCIUM LEVEL 7.4 MG/DL (8.3-10.6); CREATININE FOR GFR 2.34 MG/DL (0.70-1.30); GLOMERULAR FILTRATION RATE 28.8 (>42); MAGNESIUM LEVEL 1.4 MG/DL (1.8-2.4); POTASSIUM SERUM 4.1 MMOL/L (3.5-5.1); TOTAL PROTEIN 5.2 G/DL (5.7-8.2)
[2022-12-06] MEDS: VASOPRESSIN INJ 20 UNITS in NS 499 ML IV SCH ×2 (06:37→13:58)
[2022-12-06] MEDS ORDERED: VANCOMYCIN HCL 1,000 MG, VIAL MATE ADAPTER 1 EACH in D5W 250 ML IV ONE (08:00)
[2022-12-06] MEDS ORDERED: MAG SULF 1GM/100ML (MAG RUN) 1 GM in IV 1 EA IV ONE (08:20)
[2022-12-06] MEDS: HEPARIN SOD (PORCINE) 5000UNITS/ML 1ML VIAL/SYRINGE SQ SCH ×2 (09:24→20:51)
[2022-12-06] MEDS ORDERED: FUROSEMIDE 20MG/2ML VIAL IV ONE (10:50)
[2022-12-06] MEDS ORDERED: ALPRAZolam 0.25 MG TAB PO ONE (11:05)
[2022-12-06] MEDS: PIPERACILLIN/TAZOBACTAM SOD 3.375 GM in D5W MINI-BAG PLUS 50 ML IV SCH ×2 (11:47→18:21)
[2022-12-06] MEDS ORDERED: ACETAMINOPHEN 1000MG 100ML IV BAG IV ONE (14:00)
[2022-12-06] MEDS ORDERED: ACETAMINOPHEN *IV* 1,000 MG IV ONE ×2 (14:10)
[2022-12-06] MEDS ORDERED: NS 500 ML IV ONE (15:00)
[2022-12-06 15:59] LABS: ABG BASE EXCESS -4.7 (-2.0-2.0); ABG HCO3 18.8 MEQ/L (22.0-26.0); ABG O2 SATURATION 97.6 % (95.0-99.0); ABG PARTIAL PRESSURE CO2 30.6 mmHg (35.0-45.0); ABG PARTIAL PRESSURE O2 94.5 mmHg (75.0-100.0); ABG STANDARD HCO3 20.6 MEQ/L (22.0-26.0); ABG TOTAL CO2 19.7 MEQ/L (23.0-31.0); ABG pH (ARTERIAL) 7.406 UNITS (7.350-7.450)
[2022-12-06] MEDS: DEXTROSE 50% 50ML SYRINGE IV PRN (18:20)
[2022-12-06 23:49] LABS: ABG BASE EXCESS -4.9 (-2.0-2.0); ABG HCO3 18.9 MEQ/L (22.0-26.0); ABG O2 SATURATION 98.6 % (95.0-99.0); ABG PARTIAL PRESSURE CO2 31.6 mmHg (35.0-45.0); ABG PARTIAL PRESSURE O2 131.5 mmHg (75.0-100.0); ABG STANDARD HCO3 20.5 MEQ/L (22.0-26.0); ABG TOTAL CO2 19.8 MEQ/L (23.0-31.0); ABG pH (ARTERIAL) 7.394 UNITS (7.350-7.450)
[2022-12-07] VITALS (65 sets, daily range): BP systolic 94–133; BP diastolic 53–102; O2SAT 94
[2022-12-07] MEDS: PIPERACILLIN/TAZOBACTAM SOD 3.375 GM in D5W MINI-BAG PLUS 50 ML IV SCH ×4 (00:36→19:03)
[2022-12-07] MEDS: PANTOPRAZOLE 40MG VIAL IV SCH ×2 (03:51→14:13)
[2022-12-07] MEDS: NOREPINEPHRINE 4MG IN D5 250ML 4 MG in IV 1 EA IV SCH ×6 (05:10→18:30)
[2022-12-07 05:57] LABS: ABG HCO3 21.7 MEQ/L (22.0-26.0); ABG O2 SATURATION 98.4 % (95.0-99.0); ABG PARTIAL PRESSURE CO2 34.1 mmHg (35.0-45.0); ABG PARTIAL PRESSURE O2 121.5 mmHg (75.0-100.0); ABG STANDARD HCO3 22.8 MEQ/L (22.0-26.0); ABG TOTAL CO2 22.7 MEQ/L (23.0-31.0); ABG pH (ARTERIAL) 7.421 UNITS (7.350-7.450)
[2022-12-07] MEDS: INSULIN LISPRO (NovoLOG) PER UNIT SC SCH ×3 (06:00→18:00)
[2022-12-07 06:08] LABS: HEMATOCRIT 41.4 % (42.0-52.0); HEMOGLOBIN 13.7 g/dl (13.5-17.5); MEAN CORPUSCULAR HEMOGLOBIN 31.6 pg (27.0-33.0); MEAN CORPUSCULAR HGB CONC 33.1 g/dl (32.0-36.5); MEAN CORPUSCULAR VOLUME 95.4 fl (80.0-96.0); RED BLOOD COUNT 4.34 10^6/uL (4.30-6.10); WHITE BLOOD COUNT 21.8 10^3/uL (4.0-10.0)
[2022-12-07 06:11] LABS: PLATELET COUNT, AUTOMATED 62 10^3/uL (150-450)
[2022-12-07 06:31] LABS: ALBUMIN 2.4 G/DL (3.2-5.2); BILIRUBIN,TOTAL 2.8 MG/DL (0.3-1.2); CREATININE FOR GFR 2.74 MG/DL (0.70-1.30); MAGNESIUM LEVEL 1.8 MG/DL (1.8-2.4); POTASSIUM SERUM 3.4 MMOL/L (3.5-5.1); TOTAL PROTEIN 5.4 G/DL (5.7-8.2)
[2022-12-07] MEDS: HEPARIN SOD (PORCINE) 5000UNITS/ML 1ML VIAL/SYRINGE SQ SCH ×2 (09:00→21:00)
[2022-12-07] MEDS: DEXTROSE 50% 50ML SYRINGE IV PRN (12:50)
[2022-12-08] VITALS (13 sets, daily range): BP systolic 113–130; BP diastolic 56–67
[2022-12-08] MEDS: PIPERACILLIN/TAZOBACTAM SOD 3.375 GM in D5W MINI-BAG PLUS 50 ML IV SCH ×2 (00:12→05:52)
[2022-12-08] MEDS: NOREPINEPHRINE 4MG IN D5 250ML 4 MG in IV 1 EA IV SCH ×2 (01:10)
[2022-12-08] MEDS: PANTOPRAZOLE 40MG VIAL IV SCH ×2 (03:41→14:23)
[2022-12-08 05:23] LABS: HEMATOCRIT 41.5 % (42.0-52.0); HEMOGLOBIN 13.5 g/dl (13.5-17.5); MEAN CORPUSCULAR HEMOGLOBIN 31.5 pg (27.0-33.0); MEAN CORPUSCULAR HGB CONC 32.5 g/dl (32.0-36.5); MEAN CORPUSCULAR VOLUME 96.7 fl (80.0-96.0); RED BLOOD COUNT 4.29 10^6/uL (4.30-6.10); WHITE BLOOD COUNT 23.3 10^3/uL (4.0-10.0)
[2022-12-08 05:31] LABS: PLATELET COUNT, AUTOMATED 71 10^3/uL (150-450)
[2022-12-08 05:52] LABS: ALBUMIN 2.1 G/DL (3.2-5.2); BILIRUBIN,TOTAL 3.6 MG/DL (0.3-1.2); CALCIUM LEVEL 8.3 MG/DL (8.3-10.6); CREATININE FOR GFR 2.78 MG/DL (0.70-1.30); GLOMERULAR FILTRATION RATE 23.6 (>42); POTASSIUM SERUM 3.4 MMOL/L (3.5-5.1); TOTAL PROTEIN 5.1 G/DL (5.7-8.2)
[2022-12-08] MEDS: INSULIN LISPRO (NovoLOG) PER UNIT SC SCH ×4 (06:00→17:11)
[2022-12-08] MEDS ORDERED: POTASSIUM CHLORIDE 10MEQ SR TABLET PO ONE (07:15)
[2022-12-08] MEDS: KCL 20MEQ IN 100ML SWI (KRUN) 20 MEQ in IV 1 EA IV SCH ×4 (07:37→08:43)
[2022-12-08] MEDS ORDERED: VANCOMYCIN HCL 1,000 MG, VIAL MATE ADAPTER 1 EACH in NS 250 ML IV SCH (07:45)
[2022-12-08] MEDS: HEPARIN SOD (PORCINE) 5000UNITS/ML 1ML VIAL/SYRINGE SQ SCH ×2 (08:43→20:37)
[2022-12-08] MEDS ORDERED: ROSUVASTATIN 10 MG TAB (CRESTOR) PO SCH (09:00)
[2022-12-08] MEDS ORDERED: D5W/0.45% SODIUM CHLORIDE 1,000 ML IV SCH (09:10)
[2022-12-08 10:34] LABS: MAGNESIUM LEVEL 1.9 MG/DL (1.8-2.4)
[2022-12-08] MEDS ORDERED: D5W 1,000 ML IV SCH (10:50)
[2022-12-08 11:00] LABS: C REACTIVE PROTEIN QUANTITATIV 34.7 MG/DL (<1.0)
[2022-12-08] MEDS ORDERED: VANCOMYCIN HCL 750 MG, VIAL MATE ADAPTER 1 EACH in D5W 250 ML IV SCH (11:00)
[2022-12-08 12:47] LABS: INR 1.01; PROTHROMBIN TIME 13.5 SECONDS (12.5-14.5)
[2022-12-08 12:48] LABS: PARTIAL THROMBOPLASTIN TIME 31.5 SECONDS (24.8-34.2)
[2022-12-08 13:17] LABS: HEPATITIS B SURFACE ANTIGEN NEGATIVE (NEGATIVE)
[2022-12-08] MEDS: CEFEPIME HCL 1 GM in D5W MINI-BAG PLUS 50 ML IV SCH (14:23)
[2022-12-08] MEDS ORDERED: BARIUM SULFATE 700 MG TABLET (E-Z-DISK) As Ordered ONE (14:46)
[2022-12-08] MEDS ORDERED: VARIBAR PUDDING 40% w/v 230ML TUBE As Ordered ONE (14:46)
[2022-12-08] MEDS ORDERED: VARIBAR NECTAR 40% w/v 240ML SUSP BTL As Ordered ONE (14:46)
[2022-12-08] MEDS ORDERED: E-Z-PAQUE 96% w/w SUSP 176GM BTL As Ordered ONE (14:46)
[2022-12-09] VITALS: BP 125/64
[2022-12-09] MEDS: CEFEPIME HCL 1 GM in D5W MINI-BAG PLUS 50 ML IV SCH ×2 (01:10→15:46)
[2022-12-09] MEDS: INSULIN LISPRO (NovoLOG) PER UNIT SC SCH ×4 (01:11→17:22)
[2022-12-09] MEDS: PANTOPRAZOLE 40MG VIAL IV SCH ×2 (03:53→15:46)
[2022-12-09 04:00] VITALS: BP 123/75
[2022-12-09 06:18] LABS: HEMATOCRIT 40.2 % (42.0-52.0); HEMOGLOBIN 13.5 g/dl (13.5-17.5); MEAN CORPUSCULAR HEMOGLOBIN 31.7 pg (27.0-33.0); MEAN CORPUSCULAR HGB CONC 33.6 g/dl (32.0-36.5); MEAN CORPUSCULAR VOLUME 94.4 fl (80.0-96.0); RED BLOOD COUNT 4.26 10^6/uL (4.30-6.10); WHITE BLOOD COUNT 13.1 10^3/uL (4.0-10.0)
[2022-12-09 06:20] LABS: PLATELET COUNT, AUTOMATED 64 10^3/uL (150-450)
[2022-12-09 06:44] LABS: ALBUMIN 2.4 G/DL (3.2-5.2); BILIRUBIN,TOTAL 2.2 MG/DL (0.3-1.2); CALCIUM LEVEL 8.7 MG/DL (8.3-10.6); CREATININE FOR GFR 2.42 MG/DL (0.70-1.30); GLOMERULAR FILTRATION RATE 27.7 (>42); MAGNESIUM LEVEL 1.8 MG/DL (1.8-2.4); PHOSPHORUS LEVEL 1.2 MG/DL (2.4-5.1); POTASSIUM SERUM 3.5 MMOL/L (3.5-5.1); TOTAL PROTEIN 5.7 G/DL (5.7-8.2)
[2022-12-09 08:05] VITALS: BP 135/75
[2022-12-09] MEDS: KCL 20MEQ IN D5W 1000ML 1,000 ML IV SCH ×2 (08:25→19:00)
[2022-12-09] MEDS ORDERED: POTASSIUM PHOSPHATE INJ 30 MMOL in D5W 500 ML IV ONE (10:00)
[2022-12-09] MEDS: AMOXICILLIN 500 MG CAP PO SCH ×2 (10:54→21:06)
[2022-12-09 12:27] VITALS: BP 138/72
[2022-12-09 15:56] VITALS: BP 130/66
[2022-12-09 16:41] LABS: CALCIUM LEVEL 8.2 MG/DL (8.3-10.6); CREATININE FOR GFR 2.23 MG/DL (0.70-1.30); GLOMERULAR FILTRATION RATE 30.5 (>42); POTASSIUM SERUM 3.7 MMOL/L (3.5-5.1)
[2022-12-09 20:00] VITALS: BP 157/69
[2022-12-09] MEDS: LEVEMIR (INSULIN DETEMIR) 1 UNITS/0.01ML SC SCH (21:06)
[2022-12-10] VITALS (8 sets, daily range): BP systolic 125–139; BP diastolic 69–78
[2022-12-10] MEDS: INSULIN LISPRO (NovoLOG) PER UNIT SC SCH ×4 (00:14→19:12)
[2022-12-10] MEDS: CEFEPIME HCL 1 GM in D5W MINI-BAG PLUS 50 ML IV SCH ×2 (01:51→14:42)
[2022-12-10] MEDS: PANTOPRAZOLE 40MG VIAL IV SCH ×2 (03:15→14:42)
[2022-12-10] MEDS: KCL 20MEQ IN D5W 1000ML 1,000 ML IV SCH ×2 (05:00→14:44)
[2022-12-10 06:28] LABS: BASO # 0.1 10^3/uL (0.0-0.2); BASO % 0.6 % (0.0-1.0); EOS # 0.3 10^3/uL (0.0-0.5); EOS % 3.3 % (0.0-3.0); HEMOGLOBIN 13.7 g/dl (13.5-17.5); LYMPH # 1.9 10^3/uL (1.5-5.0); LYMPH % 18.9 % (24.0-44.0); MEAN CORPUSCULAR HEMOGLOBIN 31.8 pg (27.0-33.0); MEAN CORPUSCULAR HGB CONC 33.4 g/dl (32.0-36.5); MEAN CORPUSCULAR VOLUME 95.1 fl (80.0-96.0); MONO # 1.1 10^3/uL (0.0-0.8); MONO % 11.2 % (2.0-8.0); NEUTROPHILS # 6.3 10^3/uL (1.5-8.5); NEUTROPHILS % 63.9 % (36.0-66.0); PLATELET COUNT, AUTOMATED 83 10^3/uL (150-450); RED BLOOD COUNT 4.31 10^6/uL (4.30-6.10); WHITE BLOOD COUNT 9.9 10^3/uL (4.0-10.0)
[2022-12-10 06:56] LABS: ALBUMIN 2.1 G/DL (3.2-5.2); BILIRUBIN,TOTAL 1.6 MG/DL (0.3-1.2); CALCIUM LEVEL 8.7 MG/DL (8.3-10.6); CREATININE FOR GFR 2.01 MG/DL (0.70-1.30); GLOMERULAR FILTRATION RATE 34.4 (>42); POTASSIUM SERUM 3.8 MMOL/L (3.5-5.1); TOTAL PROTEIN 5.4 G/DL (5.7-8.2)
[2022-12-10] MEDS: AMOXICILLIN 500 MG CAP PO SCH ×2 (09:10→21:56)
[2022-12-10] MEDS ORDERED: INSULIN LISPRO (NovoLOG) PER UNIT SC SCH (21:00)
[2022-12-10] MEDS: LEVEMIR (INSULIN DETEMIR) 1 UNITS/0.01ML SC SCH (21:55)
[2022-12-11] MEDS: CEFEPIME HCL 1 GM in D5W MINI-BAG PLUS 50 ML IV SCH ×2 (02:03→14:45)
[2022-12-11] MEDS: PANTOPRAZOLE 40MG VIAL IV SCH ×2 (02:47→14:45)
[2022-12-11 03:54] VITALS: BP 120/72
[2022-12-11 05:50] LABS: BASO % 0.3 % (0.0-1.0); EOS # 0.3 10^3/uL (0.0-0.5); EOS % 3.2 % (0.0-3.0); HEMATOCRIT 43.7 % (42.0-52.0); HEMOGLOBIN 14.1 g/dl (13.5-17.5); LYMPH # 2.1 10^3/uL (1.5-5.0); LYMPH % 20.2 % (24.0-44.0); MEAN CORPUSCULAR HGB CONC 32.3 g/dl (32.0-36.5); MONO # 1.2 10^3/uL (0.0-0.8); MONO % 11.4 % (2.0-8.0); NEUTROPHILS # 6.4 10^3/uL (1.5-8.5); NEUTROPHILS % 63.2 % (36.0-66.0); PLATELET COUNT, AUTOMATED 118 10^3/uL (150-450); RED BLOOD COUNT 4.55 10^6/uL (4.30-6.10); WHITE BLOOD COUNT 10.1 10^3/uL (4.0-10.0)
[2022-12-11] MEDS: KCL 20MEQ IN D5W 1000ML 1,000 ML IV SCH (06:04)
[2022-12-11 06:06] LABS: ALBUMIN 2.2 G/DL (3.2-5.2); BILIRUBIN,TOTAL 1.3 MG/DL (0.3-1.2); CALCIUM LEVEL 8.2 MG/DL (8.3-10.6); CREATININE FOR GFR 1.62 MG/DL (0.70-1.30); GLOMERULAR FILTRATION RATE 44.1 (>42); TOTAL PROTEIN 5.6 G/DL (5.7-8.2)
[2022-12-11 07:50] VITALS: BP 124/68
[2022-12-11] MEDS ORDERED: AMOXICILLIN SUSP 250MG/5ML 100ML BOTTLE (FOR INPATIENT ORDERS) PO SCH (09:00)
[2022-12-11] MEDS: INSULIN LISPRO (NovoLOG) PER UNIT SC SCH ×2 (10:26→13:08)
[2022-12-11 11:41] VITALS: BP 136/76
[2022-12-11] MEDS ORDERED: AMOX250REC PO (14:48)
[2022-12-11] MEDS ORDERED: CEFE1INJ2 IV (14:48)
== END 2022-12-11 16:10 | DRG 853 ==
LOC: M ED 23:06 → M ED INP 12-05 04:04 → M PCU 12-05 05:08 → M ICU 12-05 13:25 → M PCU 12-10 17:35
PROVIDERS: ADMIT Internal Medicine; ATTEND Internal Medicine
PROC: 0TC68ZZ Extirpation of Matter from Right Ureter, Via Natural or Artificial Opening Endoscopic (ICD-10-PCS; 2022-12-05)
PROC: 02HV33Z Insertion of Infusion Device into Superior Vena Cava, Percutaneous Approach (ICD-10-PCS; 2022-12-05)
PROC: 0T768DZ Dilation of Right Ureter with Intraluminal Device, Via Natural or Artificial Opening Endoscopic (ICD-10-PCS; principal; 2022-12-05 09:44)
PROC: B246ZZZ Ultrasonography of Right and Left Heart (ICD-10-PCS; 2022-12-06)
DX: A41.59 Other Gram-negative sepsis (principal); J96.01 Acute respiratory failure with hypoxia; D65 Disseminated intravascular coagulation [defibrination syndrome]; I77.72 Dissection of iliac artery; K72.00 Acute and subacute hepatic failure without coma; R65.21 Severe sepsis with septic shock; N13.6 Pyonephrosis; E87.20 Acidosis, unspecified; N17.9 Acute kidney failure, unspecified; N39.0 Urinary tract infection, site not specified; G72.81 Critical illness myopathy; E87.0 Hyperosmolality and hypernatremia; R33.9 Retention of urine, unspecified; R91.1 Solitary pulmonary nodule; G35 Multiple sclerosis; I25.10 Atherosclerotic heart disease of native coronary artery without angina pectoris; I72.3 Aneurysm of iliac artery; K57.30 Diverticulosis of large intestine without perforation or abscess without bleeding; K80.20 Calculus of gallbladder without cholecystitis without obstruction; I12.9 Hypertensive chronic kidney disease with stage 1 through stage 4 chronic kidney disease, or unspecified chronic kidney disease; E11.22 Type 2 diabetes mellitus with diabetic chronic kidney disease; N18.9 Chronic kidney disease, unspecified; E78.00 Pure hypercholesterolemia, unspecified; K21.9 Gastro-esophageal reflux disease without esophagitis; E87.6 Hypokalemia; N40.1 Benign prostatic hyperplasia with lower urinary tract symptoms; E83.39 Other disorders of phosphorus metabolism; B95.2 Enterococcus as the cause of diseases classified elsewhere; Z95.1 Presence of aortocoronary bypass graft; Z79.82 Long term (current) use of aspirin; Z79.899 Other long term (current) drug therapy; Z88.8 Allergy status to other drugs, medicaments and biological substances

== ENCOUNTER 2022-12-11 12:59 | Inpatient (IN) | payer MEDICARE, OTHER ==
[~2022-12-11] VITALS: Ht 160 cm; Wt 80.2 kg
[~2022-12-11 12:59] MED LIST changes: +BASA100I SC; +COPA1INJ SC; +ERGO500029 PO; +FURO20TA2 PO; +JARD1TAB3 PO; +OMEP1CAP73 PO; +ROPI1TAB3 PO; +TAMS1CAP17 PO
[2022-12-11] MEDS ORDERED: CEFE1INJ2 IV (14:48)
[2022-12-11] MEDS ORDERED: AMOX250REC PO (14:48)
[2022-12-11 16:10] VITALS: BP 131/75
[2022-12-11] MEDS ORDERED: DEXTROSE 50% 50ML SYRINGE IV PRN (16:30)
[2022-12-11] MEDS ORDERED: GLUCOSE 4GM CHEW TABLET PO PRN (16:30)
[2022-12-11] MEDS ORDERED: GLUCAGON INJ 1MG VIAL SC PRN (16:30)
[2022-12-11] MEDS: INSULIN LISPRO (NovoLOG) PER UNIT SC SCH ×2 (19:35→20:24)
[2022-12-11 20:00] VITALS: BP 137/87
[2022-12-11] MEDS: ACETAMINOPHEN TAB 650MG DOSE (2X325MG) PO PRN (20:22)
[2022-12-11] MEDS: DULoxetine 30MG CAPSULE (CYMBALTA) PO SCH (20:22)
[2022-12-11] MEDS: SENNA 8.6 MG TAB (SENOKOT) PO SCH (20:22)
[2022-12-11] MEDS: rOPINIRole 1MG TAB PO SCH (20:22)
[2022-12-11] MEDS: DOCUSATE SODIUM 100MG CAPSULE PO SCH (20:22)
[2022-12-11] MEDS: atenoloL 25 MG TAB PO SCH (20:23)
[2022-12-11] MEDS: LEVEMIR (INSULIN DETEMIR) 1 UNITS/0.01ML SC SCH (20:23)
[2022-12-11] MEDS: AUGMENTIN SUSP POWDER 250MG/5ML BTL 75ML PO SCH (20:23)
[2022-12-11] MEDS: REMEDY PHYTOPLEX Z-GUARD PASTE 113GM TUBE (FROM STOREROOM PRODUCT) TOP SCH (20:27)
[2022-12-12] MEDS ORDERED: CEFEPIME HCL 1 GM in D5W MINI-BAG PLUS 50 ML IV SCH (02:00)
[2022-12-12 06:00] VITALS: BP 152/76
[2022-12-12 06:30] LABS: BASO # 0.1 10^3/uL (0.0-0.2); BASO % 0.7 % (0.0-1.0); EOS # 0.4 10^3/uL (0.0-0.5); EOS % 3.1 % (0.0-3.0); HEMATOCRIT 43.7 % (42.0-52.0); HEMOGLOBIN 14.3 g/dl (13.5-17.5); LYMPH # 1.8 10^3/uL (1.5-5.0); LYMPH % 15.1 % (24.0-44.0); MEAN CORPUSCULAR HEMOGLOBIN 31.5 pg (27.0-33.0); MEAN CORPUSCULAR HGB CONC 32.7 g/dl (32.0-36.5); MEAN CORPUSCULAR VOLUME 96.3 fl (80.0-96.0); MONO # 1.3 10^3/uL (0.0-0.8); MONO % 11.1 % (2.0-8.0); NEUTROPHILS # 8.1 10^3/uL (1.5-8.5); NEUTROPHILS % 67.9 % (36.0-66.0); PLATELET COUNT, AUTOMATED 167 10^3/uL (150-450); RED BLOOD COUNT 4.54 10^6/uL (4.30-6.10); WHITE BLOOD COUNT 11.9 10^3/uL (4.0-10.0)
[2022-12-12 06:54] LABS: ALBUMIN 2.4 G/DL (3.2-5.2); BILIRUBIN,TOTAL 1.2 MG/DL (0.3-1.2); CALCIUM LEVEL 8.5 MG/DL (8.3-10.6); CREATININE FOR GFR 1.56 MG/DL (0.70-1.30); GLOMERULAR FILTRATION RATE 46.1 (>42); POTASSIUM SERUM 4.5 MMOL/L (3.5-5.1); TOTAL PROTEIN 5.9 G/DL (5.7-8.2)
[2022-12-12] MEDS ORDERED: HOME MED LIST COMPLETE! XX SCH (08:40)
[2022-12-12] MEDS: ROSUVASTATIN 10 MG TAB (CRESTOR) PO SCH (08:54)
[2022-12-12] MEDS: DULoxetine 30MG CAPSULE (CYMBALTA) PO SCH ×2 (08:54→22:08)
[2022-12-12] MEDS: DOCUSATE SODIUM 100MG CAPSULE PO SCH ×2 (08:55→21:00)
[2022-12-12] MEDS: INSULIN LISPRO (NovoLOG) PER UNIT SC SCH ×4 (08:55→20:50)
[2022-12-12] MEDS: OMEPRAZOLE 20MG CAP PO SCH (08:55)
[2022-12-12] MEDS: TAMSULOSIN 0.4 MG CAP PO SCH (08:55)
[2022-12-12] MEDS: AUGMENTIN SUSP POWDER 250MG/5ML BTL 75ML PO SCH ×2 (08:55→22:10)
[2022-12-12] MEDS: atenoloL 25 MG TAB PO SCH ×2 (08:56→22:08)
[2022-12-12] MEDS: REMEDY PHYTOPLEX Z-GUARD PASTE 113GM TUBE (FROM STOREROOM PRODUCT) TOP SCH ×3 (08:57→22:09)
[2022-12-12] MEDS ORDERED: FUROSEMIDE 20 MG TAB PO SCH (09:00)
[2022-12-12 14:00] VITALS: BP 132/72
[2022-12-12] MEDS: COMBIVENT RESPIMAT 100-20MCG INHALER 4GM INH SCH ×2 (14:57→19:21)
[2022-12-12] MEDS ORDERED: D5W 1,000 ML IV ONE (15:00)
[2022-12-12] MEDS ORDERED: diphenhydrAMINE 25MG CAP PO ONE (15:20)
[2022-12-12] MEDS ORDERED: diphenhydrAMINE 25MG CAP PO PRN (15:20)
[2022-12-12] MEDS: CEFEPIME HCL 2 GM in D5W MINI-BAG PLUS 50 ML IV SCH (15:22)
[2022-12-12] MEDS: guaiFENesin SYRUP 200MG 10ML UDC PO SCH ×2 (15:22→22:06)
[2022-12-12] MEDS: SALIVA SUBSTITUTE(MOUTHKOTE) BTL MT SCH ×2 (17:00→21:00)
[2022-12-12] MEDS: MAGIC MOUTHWASH SUSPENSION BTL SSP SCH (17:30)
[2022-12-12] MEDS: RIVAROXABAN 10MG TAB (XARELTO) PO SCH (18:49)
[2022-12-12] MEDS: COPAXONE 40 MG SC SCH (18:49)
[2022-12-12 20:00] VITALS: BP 117/67
[2022-12-12] MEDS: SENNA 8.6 MG TAB (SENOKOT) PO SCH (22:06)
[2022-12-12] MEDS: LEVEMIR (INSULIN DETEMIR) 1 UNITS/0.01ML SC SCH (22:07)
[2022-12-12] MEDS: ANUSOL HC CREAM 30GM TOP SCH (22:07)
[2022-12-12] MEDS: rOPINIRole 1MG TAB PO SCH (22:08)
[2022-12-12] MEDS: VANICREAM MOISTURIZING SKIN CREAM 113GM TUBE TOP SCH (22:26)
[2022-12-13] MEDS: CEFEPIME HCL 2 GM in D5W MINI-BAG PLUS 50 ML IV SCH ×2 (01:20→14:45)
[2022-12-13 06:00] VITALS: BP 122/63
[2022-12-13] MEDS: COMBIVENT RESPIMAT 100-20MCG INHALER 4GM INH SCH ×3 (07:45→19:28)
[2022-12-13 07:58] LABS: CALCIUM LEVEL 8.3 MG/DL (8.3-10.6); CREATININE FOR GFR 1.59 MG/DL (0.70-1.30); GLOMERULAR FILTRATION RATE 45.1 (>42); POTASSIUM SERUM 4.3 MMOL/L (3.5-5.1)
[2022-12-13] MEDS: guaiFENesin SYRUP 200MG 10ML UDC PO SCH ×3 (08:08→20:41)
[2022-12-13] MEDS: DULoxetine 30MG CAPSULE (CYMBALTA) PO SCH ×2 (08:09→20:41)
[2022-12-13] MEDS: ROSUVASTATIN 10 MG TAB (CRESTOR) PO SCH (08:09)
[2022-12-13] MEDS: atenoloL 25 MG TAB PO SCH ×2 (08:10→20:42)
[2022-12-13] MEDS: TAMSULOSIN 0.4 MG CAP PO SCH (08:10)
[2022-12-13] MEDS: OMEPRAZOLE 20MG CAP PO SCH (08:10)
[2022-12-13] MEDS: INSULIN LISPRO (NovoLOG) PER UNIT SC SCH ×4 (08:11→20:43)
[2022-12-13] MEDS: MAGIC MOUTHWASH SUSPENSION BTL SSP SCH ×3 (08:11→18:11)
[2022-12-13] MEDS: DOCUSATE SODIUM 100MG CAPSULE PO SCH ×2 (08:12→20:43)
[2022-12-13] MEDS: VANICREAM MOISTURIZING SKIN CREAM 113GM TUBE TOP SCH ×2 (08:14→20:46)
[2022-12-13] MEDS: ANUSOL HC CREAM 30GM TOP SCH ×2 (08:14→20:45)
[2022-12-13] MEDS: REMEDY PHYTOPLEX Z-GUARD PASTE 113GM TUBE (FROM STOREROOM PRODUCT) TOP SCH ×3 (08:14→20:45)
[2022-12-13] MEDS: SALIVA SUBSTITUTE(MOUTHKOTE) BTL MT SCH (08:18)
[2022-12-13] MEDS: AUGMENTIN SUSP POWDER 250MG/5ML BTL 75ML PO SCH ×2 (08:18→20:43)
[2022-12-13 14:00] VITALS: BP 140/77
[2022-12-13] MEDS: RIVAROXABAN 10MG TAB (XARELTO) PO SCH (18:10)
[2022-12-13 20:00] VITALS: BP 116/60
[2022-12-13] MEDS: rOPINIRole 1MG TAB PO SCH (20:41)
[2022-12-13] MEDS: SENNA 8.6 MG TAB (SENOKOT) PO SCH (20:43)
[2022-12-13] MEDS: LEVEMIR (INSULIN DETEMIR) 1 UNITS/0.01ML SC SCH (20:44)
[2022-12-14] MEDS: CEFEPIME HCL 2 GM in D5W MINI-BAG PLUS 50 ML IV SCH ×2 (02:10→14:30)
[2022-12-14 06:00] VITALS: BP 132/64
[2022-12-14] MEDS: COMBIVENT RESPIMAT 100-20MCG INHALER 4GM INH SCH ×3 (07:39→19:51)
[2022-12-14] MEDS: INSULIN LISPRO (NovoLOG) PER UNIT SC SCH ×4 (08:39→20:10)
[2022-12-14] MEDS: MAGIC MOUTHWASH SUSPENSION BTL SSP SCH ×3 (08:39→18:09)
[2022-12-14] MEDS: AUGMENTIN SUSP POWDER 250MG/5ML BTL 75ML PO SCH ×2 (08:40→20:09)
[2022-12-14] MEDS: ROSUVASTATIN 10 MG TAB (CRESTOR) PO SCH (08:40)
[2022-12-14] MEDS: TAMSULOSIN 0.4 MG CAP PO SCH (08:40)
[2022-12-14] MEDS: DULoxetine 30MG CAPSULE (CYMBALTA) PO SCH ×2 (08:40→20:11)
[2022-12-14] MEDS: atenoloL 25 MG TAB PO SCH ×2 (08:41→20:11)
[2022-12-14] MEDS: guaiFENesin SYRUP 200MG 10ML UDC PO SCH ×3 (08:41→20:10)
[2022-12-14] MEDS: OMEPRAZOLE 20MG CAP PO SCH (08:41)
[2022-12-14] MEDS: ANUSOL HC CREAM 30GM TOP SCH ×2 (08:42→20:12)
[2022-12-14] MEDS: REMEDY PHYTOPLEX Z-GUARD PASTE 113GM TUBE (FROM STOREROOM PRODUCT) TOP SCH ×3 (08:42→20:12)
[2022-12-14] MEDS: VANICREAM MOISTURIZING SKIN CREAM 113GM TUBE TOP SCH ×2 (08:42→20:12)
[2022-12-14] MEDS: DOCUSATE SODIUM 100MG CAPSULE PO SCH ×2 (09:00→20:10)
[2022-12-14] MEDS: NS 0.45% 1,000 ML IV SCH (12:44)
[2022-12-14] MEDS: RIVAROXABAN 10MG TAB (XARELTO) PO SCH (18:08)
[2022-12-14 20:00] VITALS: BP 139/75
[2022-12-14] MEDS: LEVEMIR (INSULIN DETEMIR) 1 UNITS/0.01ML SC SCH (20:09)
[2022-12-14] MEDS: SENNA 8.6 MG TAB (SENOKOT) PO SCH (20:10)
[2022-12-14] MEDS: ACETAMINOPHEN TAB 650MG DOSE (2X325MG) PO PRN (20:10)
[2022-12-14] MEDS: rOPINIRole 1MG TAB PO SCH (20:10)
[2022-12-15] MEDS: NS 0.45% 1,000 ML IV SCH ×2 (02:08→14:21)
[2022-12-15 05:32] VITALS: BP 139/67
[2022-12-15 06:42] LABS: BASO % 0.5 % (0.0-1.0); EOS # 0.4 10^3/uL (0.0-0.5); HEMOGLOBIN 13.1 g/dl (13.5-17.5); LYMPH # 1.5 10^3/uL (1.5-5.0); LYMPH % 17.2 % (24.0-44.0); MEAN CORPUSCULAR HEMOGLOBIN 31.4 pg (27.0-33.0); MEAN CORPUSCULAR VOLUME 98.3 fl (80.0-96.0); MONO # 0.8 10^3/uL (0.0-0.8); MONO % 9.1 % (2.0-8.0); NEUTROPHILS % 67.5 % (36.0-66.0); PLATELET COUNT, AUTOMATED 300 10^3/uL (150-450); RED BLOOD COUNT 4.17 10^6/uL (4.30-6.10); WHITE BLOOD COUNT 8.8 10^3/uL (4.0-10.0)
[2022-12-15 07:14] LABS: CALCIUM LEVEL 8.1 MG/DL (8.3-10.6); CREATININE FOR GFR 1.46 MG/DL (0.70-1.30); GLOMERULAR FILTRATION RATE 49.7 (>42); POTASSIUM SERUM 4.6 MMOL/L (3.5-5.1)
[2022-12-15] MEDS: COMBIVENT RESPIMAT 100-20MCG INHALER 4GM INH SCH ×3 (07:40→19:42)
[2022-12-15] MEDS: ROSUVASTATIN 10 MG TAB (CRESTOR) PO SCH (08:26)
[2022-12-15] MEDS: DOCUSATE SODIUM 100MG CAPSULE PO SCH (08:26)
[2022-12-15] MEDS: DULoxetine 30MG CAPSULE (CYMBALTA) PO SCH ×2 (08:26→20:46)
[2022-12-15] MEDS: OMEPRAZOLE 20MG CAP PO SCH (08:26)
[2022-12-15] MEDS: TAMSULOSIN 0.4 MG CAP PO SCH (08:26)
[2022-12-15] MEDS: guaiFENesin SYRUP 200MG 10ML UDC PO SCH ×3 (08:27→20:46)
[2022-12-15] MEDS: atenoloL 25 MG TAB PO SCH ×2 (08:27→20:47)
[2022-12-15] MEDS: MAGIC MOUTHWASH SUSPENSION BTL SSP SCH ×3 (08:28→17:51)
[2022-12-15] MEDS: INSULIN LISPRO (NovoLOG) PER UNIT SC SCH ×4 (08:28→20:47)
[2022-12-15] MEDS: VANICREAM MOISTURIZING SKIN CREAM 113GM TUBE TOP SCH ×2 (08:29→20:49)
[2022-12-15] MEDS: REMEDY PHYTOPLEX Z-GUARD PASTE 113GM TUBE (FROM STOREROOM PRODUCT) TOP SCH ×3 (08:29→20:49)
[2022-12-15] MEDS: ANUSOL HC CREAM 30GM TOP SCH ×2 (08:30→20:48)
[2022-12-15] MEDS: COPAXONE 40 MG SC SCH (08:51)
[2022-12-15] MEDS: LEVEMIR (INSULIN DETEMIR) 1 UNITS/0.01ML SC SCH ×2 (10:40→20:48)
[2022-12-15] MEDS: SALIVA SUBSTITUTE(MOUTHKOTE) BTL MT SCH ×3 (13:00→20:47)
[2022-12-15 14:00] VITALS: BP 117/65
[2022-12-15] MEDS: RIVAROXABAN 10MG TAB (XARELTO) PO SCH (17:49)
[2022-12-15 20:00] VITALS: BP 131/68
[2022-12-15] MEDS: rOPINIRole 1MG TAB PO SCH (20:46)
[2022-12-16 06:00] VITALS: BP 133/66
[2022-12-16] MEDS: COMBIVENT RESPIMAT 100-20MCG INHALER 4GM INH SCH ×3 (07:28→20:36)
[2022-12-16 10:01] VITALS: BP 124/68
[2022-12-16] MEDS: LEVEMIR (INSULIN DETEMIR) 1 UNITS/0.01ML SC SCH ×2 (10:04→20:32)
[2022-12-16] MEDS: guaiFENesin SYRUP 200MG 10ML UDC PO SCH ×3 (10:04→20:32)
[2022-12-16] MEDS: INSULIN LISPRO (NovoLOG) PER UNIT SC SCH ×4 (10:04→20:30)
[2022-12-16] MEDS: TAMSULOSIN 0.4 MG CAP PO SCH (10:05)
[2022-12-16] MEDS: DULoxetine 30MG CAPSULE (CYMBALTA) PO SCH ×2 (10:05→20:32)
[2022-12-16] MEDS: ROSUVASTATIN 10 MG TAB (CRESTOR) PO SCH (10:05)
[2022-12-16] MEDS: atenoloL 25 MG TAB PO SCH ×2 (10:06→20:32)
[2022-12-16] MEDS: OMEPRAZOLE 20MG CAP PO SCH (10:06)
[2022-12-16] MEDS: SALIVA SUBSTITUTE(MOUTHKOTE) BTL MT SCH ×4 (10:07→20:32)
[2022-12-16] MEDS: ANUSOL HC CREAM 30GM TOP SCH ×2 (10:08→20:33)
[2022-12-16] MEDS: REMEDY PHYTOPLEX Z-GUARD PASTE 113GM TUBE (FROM STOREROOM PRODUCT) TOP SCH ×3 (10:08→20:33)
[2022-12-16] MEDS: VANICREAM MOISTURIZING SKIN CREAM 113GM TUBE TOP SCH ×2 (10:09→20:33)
[2022-12-16] MEDS: MAGIC MOUTHWASH SUSPENSION BTL SSP SCH ×3 (10:09→17:23)
[2022-12-16 14:00] VITALS: BP 129/68
[2022-12-16] MEDS: RIVAROXABAN 10MG TAB (XARELTO) PO SCH (17:21)
[2022-12-16] MEDS: BACLOFEN 5MG PER 1/2 TABLET PO SCH (17:21)
[2022-12-16 20:00] VITALS: BP 130/69
[2022-12-16] MEDS: rOPINIRole 1MG TAB PO SCH (20:32)
[2022-12-16] MEDS ORDERED: POLYVINYL ALCOHOL OPHTH SOLN 15ML (LIQUITEARS) OU PRN (20:35)
[2022-12-17 06:00] VITALS: BP 111/59
[2022-12-17] MEDS: COMBIVENT RESPIMAT 100-20MCG INHALER 4GM INH SCH ×3 (07:29→20:35)
[2022-12-17 07:33] LABS: HEMATOCRIT 41.1 % (42.0-52.0); HEMOGLOBIN 13.3 g/dl (13.5-17.5); MEAN CORPUSCULAR HEMOGLOBIN 31.1 pg (27.0-33.0); MEAN CORPUSCULAR HGB CONC 32.4 g/dl (32.0-36.5); MEAN CORPUSCULAR VOLUME 96.3 fl (80.0-96.0); PLATELET COUNT, AUTOMATED 385 10^3/uL (150-450); RED BLOOD COUNT 4.27 10^6/uL (4.30-6.10); WHITE BLOOD COUNT 7.3 10^3/uL (4.0-10.0)
[2022-12-17 08:02] LABS: CALCIUM LEVEL 8.8 MG/DL (8.3-10.6); CREATININE FOR GFR 1.31 MG/DL (0.70-1.30); GLOMERULAR FILTRATION RATE 56.3 (>42); POTASSIUM SERUM 4.9 MMOL/L (3.5-5.1)
[2022-12-17] MEDS: INSULIN LISPRO (NovoLOG) PER UNIT SC SCH ×4 (08:18→20:11)
[2022-12-17] MEDS: LEVEMIR (INSULIN DETEMIR) 1 UNITS/0.01ML SC SCH (08:19)
[2022-12-17] MEDS: ROSUVASTATIN 10 MG TAB (CRESTOR) PO SCH (08:24)
[2022-12-17] MEDS: TAMSULOSIN 0.4 MG CAP PO SCH (08:25)
[2022-12-17] MEDS: DULoxetine 30MG CAPSULE (CYMBALTA) PO SCH ×2 (08:25→20:07)
[2022-12-17] MEDS: BACLOFEN 5MG PER 1/2 TABLET PO SCH ×2 (08:25→13:46)
[2022-12-17] MEDS: OMEPRAZOLE 20MG CAP PO SCH (08:26)
[2022-12-17] MEDS: MAGIC MOUTHWASH SUSPENSION BTL SSP SCH ×3 (08:29→17:34)
[2022-12-17] MEDS: atenoloL 25 MG TAB PO SCH ×2 (08:29→20:08)
[2022-12-17] MEDS: SALIVA SUBSTITUTE(MOUTHKOTE) BTL MT SCH ×4 (08:30→20:09)
[2022-12-17] MEDS: COPAXONE 40 MG SC SCH (08:32)
[2022-12-17] MEDS: guaiFENesin SYRUP 200MG 10ML UDC PO SCH ×3 (08:34→20:08)
[2022-12-17] MEDS: VANICREAM MOISTURIZING SKIN CREAM 113GM TUBE TOP SCH ×2 (08:35→20:12)
[2022-12-17] MEDS: ANUSOL HC CREAM 30GM TOP SCH ×2 (08:36→20:10)
[2022-12-17] MEDS: REMEDY PHYTOPLEX Z-GUARD PASTE 113GM TUBE (FROM STOREROOM PRODUCT) TOP SCH ×3 (08:36→20:10)
[2022-12-17 14:00] VITALS: BP 110/60
[2022-12-17] MEDS: RIVAROXABAN 10MG TAB (XARELTO) PO SCH (17:32)
[2022-12-17 20:00] VITALS: BP 108/61
[2022-12-17] MEDS: rOPINIRole 1MG TAB PO SCH (20:07)
[2022-12-17] MEDS ORDERED: LEVEMIR (INSULIN DETEMIR) 1 UNITS/0.01ML SC SCH (21:00)
[2022-12-18 05:09] VITALS: BP 129/68
[2022-12-18] MEDS: COMBIVENT RESPIMAT 100-20MCG INHALER 4GM INH SCH ×3 (07:44→20:02)
[2022-12-18] MEDS: DULoxetine 30MG CAPSULE (CYMBALTA) PO SCH ×2 (08:14→21:15)
[2022-12-18] MEDS: guaiFENesin SYRUP 200MG 10ML UDC PO SCH ×3 (08:14→21:17)
[2022-12-18] MEDS: OMEPRAZOLE 20MG CAP PO SCH (08:14)
[2022-12-18] MEDS: INSULIN LISPRO (NovoLOG) PER UNIT SC SCH ×4 (08:15→19:41)
[2022-12-18] MEDS: BACLOFEN 5MG PER 1/2 TABLET PO SCH ×2 (08:15→12:27)
[2022-12-18] MEDS: TAMSULOSIN 0.4 MG CAP PO SCH (08:15)
[2022-12-18] MEDS: ROSUVASTATIN 10 MG TAB (CRESTOR) PO SCH (08:15)
[2022-12-18] MEDS: atenoloL 25 MG TAB PO SCH ×2 (08:22→21:22)
[2022-12-18] MEDS: REMEDY PHYTOPLEX Z-GUARD PASTE 113GM TUBE (FROM STOREROOM PRODUCT) TOP SCH ×3 (08:23→21:17)
[2022-12-18] MEDS: VANICREAM MOISTURIZING SKIN CREAM 113GM TUBE TOP SCH ×2 (08:23→21:16)
[2022-12-18] MEDS: ANUSOL HC CREAM 30GM TOP SCH ×2 (08:24→21:18)
[2022-12-18] MEDS: MAGIC MOUTHWASH SUSPENSION BTL SSP SCH ×4 (08:28→16:58)
[2022-12-18] MEDS: SALIVA SUBSTITUTE(MOUTHKOTE) BTL MT SCH ×4 (08:28→21:17)
[2022-12-18] MEDS ORDERED: LEVEMIR (INSULIN DETEMIR) 1 UNITS/0.01ML SC SCH (09:00)
[2022-12-18 14:00] VITALS: BP 124/72
[2022-12-18] MEDS: RIVAROXABAN 10MG TAB (XARELTO) PO SCH (16:53)
[2022-12-18 20:00] VITALS: BP 100/59
[2022-12-18] MEDS: rOPINIRole 1MG TAB PO SCH (21:15)
[2022-12-18] MEDS: LEVEMIR (INSULIN DETEMIR) 1 UNITS/0.01ML SC SCH (21:16)
[2022-12-19 06:00] VITALS: BP 109/55
[2022-12-19] MEDS: MAGIC MOUTHWASH SUSPENSION BTL SSP SCH ×3 (07:30→16:56)
[2022-12-19] MEDS: COMBIVENT RESPIMAT 100-20MCG INHALER 4GM INH SCH ×3 (07:32→19:55)
[2022-12-19 08:11] LABS: BASO # 0.1 10^3/uL (0.0-0.2); BASO % 0.9 % (0.0-1.0); EOS # 0.2 10^3/uL (0.0-0.5); EOS % 2.3 % (0.0-3.0); HEMATOCRIT 42.1 % (42.0-52.0); HEMOGLOBIN 13.8 g/dl (13.5-17.5); LYMPH # 2.7 10^3/uL (1.5-5.0); MEAN CORPUSCULAR HEMOGLOBIN 31.4 pg (27.0-33.0); MEAN CORPUSCULAR HGB CONC 32.8 g/dl (32.0-36.5); MEAN CORPUSCULAR VOLUME 95.7 fl (80.0-96.0); MONO # 0.7 10^3/uL (0.0-0.8); MONO % 8.5 % (2.0-8.0); NEUTROPHILS # 4.9 10^3/uL (1.5-8.5); NEUTROPHILS % 56.7 % (36.0-66.0); PLATELET COUNT, AUTOMATED 477 10^3/uL (150-450); WHITE BLOOD COUNT 8.6 10^3/uL (4.0-10.0)
[2022-12-19] MEDS: LEVEMIR (INSULIN DETEMIR) 1 UNITS/0.01ML SC SCH ×2 (08:17→20:41)
[2022-12-19] MEDS: INSULIN LISPRO (NovoLOG) PER UNIT SC SCH ×4 (08:17→20:41)
[2022-12-19] MEDS: ROSUVASTATIN 10 MG TAB (CRESTOR) PO SCH (08:18)
[2022-12-19] MEDS: COPAXONE 40 MG SC SCH (08:18)
[2022-12-19] MEDS: ANUSOL HC CREAM 30GM TOP SCH ×2 (08:18→20:40)
[2022-12-19] MEDS: BACLOFEN 5MG PER 1/2 TABLET PO SCH ×2 (08:18→12:08)
[2022-12-19] MEDS: DULoxetine 30MG CAPSULE (CYMBALTA) PO SCH ×2 (08:18→20:40)
[2022-12-19] MEDS: TAMSULOSIN 0.4 MG CAP PO SCH (08:20)
[2022-12-19] MEDS: OMEPRAZOLE 20MG CAP PO SCH (08:20)
[2022-12-19] MEDS: guaiFENesin SYRUP 200MG 10ML UDC PO SCH ×3 (08:20→20:40)
[2022-12-19] MEDS: atenoloL 25 MG TAB PO SCH ×2 (08:21→20:40)
[2022-12-19] MEDS: SALIVA SUBSTITUTE(MOUTHKOTE) BTL MT SCH ×4 (08:22→20:39)
[2022-12-19] MEDS: VANICREAM MOISTURIZING SKIN CREAM 113GM TUBE TOP SCH ×2 (08:23→20:41)
[2022-12-19] MEDS: REMEDY PHYTOPLEX Z-GUARD PASTE 113GM TUBE (FROM STOREROOM PRODUCT) TOP SCH ×3 (08:23→20:39)
[2022-12-19 08:45] LABS: CALCIUM LEVEL 9.1 MG/DL (8.3-10.6); CREATININE FOR GFR 1.24 MG/DL (0.70-1.30); POTASSIUM SERUM 5.2 MMOL/L (3.5-5.1)
[2022-12-19] MEDS ORDERED: PATIROMER SORBITEX CALCIUM 8.4 GM POWDER PACKET (VELTASSA) PO ONE (10:00)
[2022-12-19] MEDS ORDERED: PILL CUTTER 1 EACH XX PRN (12:10)
[2022-12-19 14:00] VITALS: BP 101/59
[2022-12-19] MEDS: SITagliptin 50 MG TAB (JANUVIA) PO SCH (16:53)
[2022-12-19] MEDS: RIVAROXABAN 10MG TAB (XARELTO) PO SCH (16:59)
[2022-12-19 20:00] VITALS: BP 116/69
[2022-12-19] MEDS: rOPINIRole 1MG TAB PO SCH (20:40)
[2022-12-20 06:29] VITALS: BP 108/59
[2022-12-20] MEDS: COMBIVENT RESPIMAT 100-20MCG INHALER 4GM INH SCH ×3 (07:16→20:00)
[2022-12-20 07:23] LABS: BLOOD UREA NITROGEN 37 MG/DL (9-23); CALCIUM LEVEL 8.9 MG/DL (8.3-10.6); CARBON DIOXIDE LEVEL 24 MMOL/L (20-31); CHLORIDE LEVEL 108 MMOL/L (98-107); CREATININE FOR GFR 1.13 MG/DL (0.70-1.30); GLOMERULAR FILTRATION RATE > 60.0 (>42); GLUCOSE, FASTING 148 MG/DL (74-106); POTASSIUM SERUM 4.5 MMOL/L (3.5-5.1); SODIUM LEVEL 139 MMOL/L (136-145)
[2022-12-20] MEDS: MAGIC MOUTHWASH SUSPENSION BTL SSP SCH ×3 (08:07→17:21)
[2022-12-20] MEDS: INSULIN LISPRO (NovoLOG) PER UNIT SC SCH ×4 (08:08→20:39)
[2022-12-20] MEDS: ROSUVASTATIN 10 MG TAB (CRESTOR) PO SCH (08:09)
[2022-12-20] MEDS: BACLOFEN 5MG PER 1/2 TABLET PO SCH ×2 (08:09→12:10)
[2022-12-20] MEDS: SALIVA SUBSTITUTE(MOUTHKOTE) BTL MT SCH ×4 (08:09→20:41)
[2022-12-20] MEDS: TAMSULOSIN 0.4 MG CAP PO SCH (08:10)
[2022-12-20] MEDS: SITagliptin 50 MG TAB (JANUVIA) PO SCH (08:10)
[2022-12-20] MEDS: DULoxetine 30MG CAPSULE (CYMBALTA) PO SCH ×2 (08:10→20:38)
[2022-12-20] MEDS: OMEPRAZOLE 20MG CAP PO SCH (08:11)
[2022-12-20] MEDS: guaiFENesin SYRUP 200MG 10ML UDC PO SCH ×3 (08:11→20:38)
[2022-12-20] MEDS: atenoloL 25 MG TAB PO SCH ×2 (08:11→20:38)
[2022-12-20] MEDS: LEVEMIR (INSULIN DETEMIR) 1 UNITS/0.01ML SC SCH ×2 (08:12→20:38)
[2022-12-20] MEDS: REMEDY PHYTOPLEX Z-GUARD PASTE 113GM TUBE (FROM STOREROOM PRODUCT) TOP SCH ×3 (08:13→20:39)
[2022-12-20] MEDS: ANUSOL HC CREAM 30GM TOP SCH ×2 (08:13→20:39)
[2022-12-20] MEDS: VANICREAM MOISTURIZING SKIN CREAM 113GM TUBE TOP SCH ×2 (08:14→20:40)
[2022-12-20 14:00] VITALS: BP 139/87
[2022-12-20] MEDS: RIVAROXABAN 10MG TAB (XARELTO) PO SCH (17:20)
[2022-12-20 20:00] VITALS: BP 134/66
[2022-12-20] MEDS: rOPINIRole 1MG TAB PO SCH (20:38)
[2022-12-21 06:00] VITALS: BP 117/61
[2022-12-21] MEDS: COMBIVENT RESPIMAT 100-20MCG INHALER 4GM INH SCH ×3 (07:20→20:12)
[2022-12-21] MEDS: LEVEMIR (INSULIN DETEMIR) 1 UNITS/0.01ML SC SCH ×2 (08:03→20:52)
[2022-12-21] MEDS: INSULIN LISPRO (NovoLOG) PER UNIT SC SCH ×4 (08:04→21:00)
[2022-12-21] MEDS: BACLOFEN 5MG PER 1/2 TABLET PO SCH ×2 (08:04→15:15)
[2022-12-21] MEDS: MAGIC MOUTHWASH SUSPENSION BTL SSP SCH ×3 (08:05→17:08)
[2022-12-21] MEDS: TAMSULOSIN 0.4 MG CAP PO SCH (08:06)
[2022-12-21] MEDS: SITagliptin 50 MG TAB (JANUVIA) PO SCH (08:06)
[2022-12-21] MEDS: ROSUVASTATIN 10 MG TAB (CRESTOR) PO SCH (08:06)
[2022-12-21] MEDS: OMEPRAZOLE 20MG CAP PO SCH (08:06)
[2022-12-21] MEDS: DULoxetine 30MG CAPSULE (CYMBALTA) PO SCH ×2 (08:06→20:52)
[2022-12-21] MEDS: ANUSOL HC CREAM 30GM TOP SCH ×2 (08:07→20:53)
[2022-12-21] MEDS: atenoloL 25 MG TAB PO SCH ×2 (08:07→20:52)
[2022-12-21] MEDS: SALIVA SUBSTITUTE(MOUTHKOTE) BTL MT SCH ×4 (08:08→20:54)
[2022-12-21] MEDS: VANICREAM MOISTURIZING SKIN CREAM 113GM TUBE TOP SCH ×2 (08:08→20:54)
[2022-12-21] MEDS: guaiFENesin SYRUP 200MG 10ML UDC PO SCH ×3 (09:00→20:52)
[2022-12-21] MEDS: REMEDY PHYTOPLEX Z-GUARD PASTE 113GM TUBE (FROM STOREROOM PRODUCT) TOP SCH ×3 (11:56→20:53)
[2022-12-21 14:00] VITALS: BP 97/55
[2022-12-21] MEDS: RIVAROXABAN 10MG TAB (XARELTO) PO SCH (17:09)
[2022-12-21 20:00] VITALS: BP 117/66
[2022-12-21] MEDS: rOPINIRole 1MG TAB PO SCH (20:52)
[2022-12-22 06:00] VITALS: BP 106/65
[2022-12-22 06:05] LABS: BASO # 0.1 10^3/uL (0.0-0.2); BASO % 0.9 % (0.0-1.0); EOS # 0.3 10^3/uL (0.0-0.5); EOS % 3.4 % (0.0-3.0); HEMATOCRIT 41.2 % (42.0-52.0); HEMOGLOBIN 13.5 g/dl (13.5-17.5); LYMPH # 2.5 10^3/uL (1.5-5.0); LYMPH % 29.2 % (24.0-44.0); MEAN CORPUSCULAR HEMOGLOBIN 31.4 pg (27.0-33.0); MEAN CORPUSCULAR HGB CONC 32.8 g/dl (32.0-36.5); MEAN CORPUSCULAR VOLUME 95.8 fl (80.0-96.0); MONO # 0.9 10^3/uL (0.0-0.8); MONO % 10.1 % (2.0-8.0); NEUTROPHILS # 4.7 10^3/uL (1.5-8.5); NEUTROPHILS % 55.8 % (36.0-66.0); PLATELET COUNT, AUTOMATED 413 10^3/uL (150-450); WHITE BLOOD COUNT 8.5 10^3/uL (4.0-10.0)
[2022-12-22] MEDS: COMBIVENT RESPIMAT 100-20MCG INHALER 4GM INH SCH ×3 (06:14→20:00)
[2022-12-22 06:32] LABS: CALCIUM LEVEL 9.2 MG/DL (8.3-10.6); CREATININE FOR GFR 1.24 MG/DL (0.70-1.30); POTASSIUM SERUM 4.5 MMOL/L (3.5-5.1)
[2022-12-22] MEDS: INSULIN LISPRO (NovoLOG) PER UNIT SC SCH ×4 (07:30→20:02)
[2022-12-22] MEDS: guaiFENesin SYRUP 200MG 10ML UDC PO SCH ×3 (08:23→20:10)
[2022-12-22] MEDS: OMEPRAZOLE 20MG CAP PO SCH (08:24)
[2022-12-22] MEDS: LEVEMIR (INSULIN DETEMIR) 1 UNITS/0.01ML SC SCH ×2 (08:24→20:10)
[2022-12-22] MEDS: ROSUVASTATIN 10 MG TAB (CRESTOR) PO SCH (08:24)
[2022-12-22] MEDS: BACLOFEN 5MG PER 1/2 TABLET PO SCH ×2 (08:24→12:43)
[2022-12-22] MEDS: TAMSULOSIN 0.4 MG CAP PO SCH (08:25)
[2022-12-22] MEDS: SALIVA SUBSTITUTE(MOUTHKOTE) BTL MT SCH ×4 (08:25→20:10)
[2022-12-22] MEDS: DULoxetine 30MG CAPSULE (CYMBALTA) PO SCH ×2 (08:25→20:09)
[2022-12-22] MEDS: MAGIC MOUTHWASH SUSPENSION BTL SSP SCH ×3 (08:25→17:22)
[2022-12-22] MEDS: atenoloL 25 MG TAB PO SCH ×2 (08:25→20:09)
[2022-12-22] MEDS: ANUSOL HC CREAM 30GM TOP SCH ×2 (08:26→20:11)
[2022-12-22] MEDS: REMEDY PHYTOPLEX Z-GUARD PASTE 113GM TUBE (FROM STOREROOM PRODUCT) TOP SCH ×3 (08:26→20:11)
[2022-12-22] MEDS: SITagliptin 50 MG TAB (JANUVIA) PO SCH (08:26)
[2022-12-22] MEDS: COPAXONE 40 MG SC SCH (08:26)
[2022-12-22] MEDS: VANICREAM MOISTURIZING SKIN CREAM 113GM TUBE TOP SCH ×2 (08:27→20:11)
[2022-12-22 14:00] VITALS: BP 102/55
[2022-12-22] MEDS: RIVAROXABAN 10MG TAB (XARELTO) PO SCH (17:22)
[2022-12-22 20:00] VITALS: BP 112/65
[2022-12-22] MEDS: rOPINIRole 1MG TAB PO SCH (20:09)
[2022-12-23 06:00] VITALS: BP 107/55
[2022-12-23] MEDS: MAGIC MOUTHWASH SUSPENSION BTL SSP SCH ×3 (07:30→16:57)
[2022-12-23] MEDS: COMBIVENT RESPIMAT 100-20MCG INHALER 4GM INH SCH ×3 (07:35→19:02)
[2022-12-23] MEDS: LEVEMIR (INSULIN DETEMIR) 1 UNITS/0.01ML SC SCH ×2 (08:56→20:53)
[2022-12-23] MEDS: INSULIN LISPRO (NovoLOG) PER UNIT SC SCH ×4 (08:57→20:52)
[2022-12-23] MEDS: guaiFENesin SYRUP 200MG 10ML UDC PO SCH ×3 (08:57→20:51)
[2022-12-23] MEDS: ROSUVASTATIN 10 MG TAB (CRESTOR) PO SCH (08:58)
[2022-12-23] MEDS: DULoxetine 30MG CAPSULE (CYMBALTA) PO SCH ×2 (08:58→20:51)
[2022-12-23] MEDS: TAMSULOSIN 0.4 MG CAP PO SCH (08:58)
[2022-12-23] MEDS: OMEPRAZOLE 20MG CAP PO SCH (08:58)
[2022-12-23] MEDS: BACLOFEN 5MG PER 1/2 TABLET PO SCH ×2 (08:58→12:54)
[2022-12-23] MEDS: SITagliptin 50 MG TAB (JANUVIA) PO SCH (08:59)
[2022-12-23] MEDS: ANUSOL HC CREAM 30GM TOP SCH ×2 (09:00→20:54)
[2022-12-23] MEDS: atenoloL 25 MG TAB PO SCH ×2 (09:00→20:52)
[2022-12-23] MEDS: SALIVA SUBSTITUTE(MOUTHKOTE) BTL MT SCH ×4 (09:00→20:51)
[2022-12-23] MEDS: REMEDY PHYTOPLEX Z-GUARD PASTE 113GM TUBE (FROM STOREROOM PRODUCT) TOP SCH ×3 (09:01→20:54)
[2022-12-23] MEDS: VANICREAM MOISTURIZING SKIN CREAM 113GM TUBE TOP SCH ×2 (09:02→20:53)
[2022-12-23] MEDS: LORATADINE 10 MG TAB PO SCH (10:00)
[2022-12-23 14:00] VITALS: BP 127/63
[2022-12-23] MEDS: RIVAROXABAN 10MG TAB (XARELTO) PO SCH (17:38)
[2022-12-23 20:00] VITALS: BP 112/61
[2022-12-23] MEDS: rOPINIRole 1MG TAB PO SCH (20:51)
[2022-12-24 06:00] VITALS: BP 147/72
[2022-12-24 07:09] LABS: BASO # 0.1 10^3/uL (0.0-0.2); EOS # 0.3 10^3/uL (0.0-0.5); EOS % 3.8 % (0.0-3.0); HEMATOCRIT 38.8 % (42.0-52.0); HEMOGLOBIN 13.1 g/dl (13.5-17.5); LYMPH # 2.2 10^3/uL (1.5-5.0); LYMPH % 26.8 % (24.0-44.0); MEAN CORPUSCULAR HEMOGLOBIN 32.1 pg (27.0-33.0); MEAN CORPUSCULAR HGB CONC 33.8 g/dl (32.0-36.5); MEAN CORPUSCULAR VOLUME 95.1 fl (80.0-96.0); MONO # 0.7 10^3/uL (0.0-0.8); MONO % 8.6 % (2.0-8.0); NEUTROPHILS # 4.8 10^3/uL (1.5-8.5); NEUTROPHILS % 59.3 % (36.0-66.0); PLATELET COUNT, AUTOMATED 345 10^3/uL (150-450); RED BLOOD COUNT 4.08 10^6/uL (4.30-6.10); WHITE BLOOD COUNT 8.1 10^3/uL (4.0-10.0)
[2022-12-24] MEDS: COMBIVENT RESPIMAT 100-20MCG INHALER 4GM INH SCH ×3 (07:22→19:56)
[2022-12-24 07:43] LABS: BLOOD UREA NITROGEN 35 MG/DL (9-23); CALCIUM LEVEL 8.7 MG/DL (8.3-10.6); CARBON DIOXIDE LEVEL 25 MMOL/L (20-31); CHLORIDE LEVEL 106 MMOL/L (98-107); CREATININE FOR GFR 1.21 MG/DL (0.70-1.30); GLOMERULAR FILTRATION RATE > 60.0 (>42); GLUCOSE, FASTING 107 MG/DL (74-106); POTASSIUM SERUM 4.3 MMOL/L (3.5-5.1); SODIUM LEVEL 139 MMOL/L (136-145)
[2022-12-24] MEDS: LEVEMIR (INSULIN DETEMIR) 1 UNITS/0.01ML SC SCH ×2 (09:12→21:19)
[2022-12-24] MEDS: OMEPRAZOLE 20MG CAP PO SCH (09:13)
[2022-12-24] MEDS: BACLOFEN 5MG PER 1/2 TABLET PO SCH ×2 (09:13→12:31)
[2022-12-24] MEDS: INSULIN LISPRO (NovoLOG) PER UNIT SC SCH ×4 (09:13→21:19)
[2022-12-24] MEDS: ROSUVASTATIN 10 MG TAB (CRESTOR) PO SCH (09:14)
[2022-12-24] MEDS: SITagliptin 50 MG TAB (JANUVIA) PO SCH (09:15)
[2022-12-24] MEDS: COPAXONE 40 MG SC SCH (09:15)
[2022-12-24] MEDS: guaiFENesin SYRUP 200MG 10ML UDC PO SCH ×3 (09:16→21:00)
[2022-12-24] MEDS: DULoxetine 30MG CAPSULE (CYMBALTA) PO SCH ×2 (09:16→21:18)
[2022-12-24] MEDS: MAGIC MOUTHWASH SUSPENSION BTL SSP SCH ×3 (09:16→16:54)
[2022-12-24] MEDS: LORATADINE 10 MG TAB PO SCH (09:16)
[2022-12-24] MEDS: TAMSULOSIN 0.4 MG CAP PO SCH (09:16)
[2022-12-24] MEDS: atenoloL 25 MG TAB PO SCH ×2 (09:16→21:18)
[2022-12-24] MEDS: VANICREAM MOISTURIZING SKIN CREAM 113GM TUBE TOP SCH ×2 (09:22→21:20)
[2022-12-24] MEDS: ANUSOL HC CREAM 30GM TOP SCH ×2 (09:22→21:20)
[2022-12-24] MEDS: SALIVA SUBSTITUTE(MOUTHKOTE) BTL MT SCH ×4 (09:22→21:19)
[2022-12-24] MEDS: REMEDY PHYTOPLEX Z-GUARD PASTE 113GM TUBE (FROM STOREROOM PRODUCT) TOP SCH ×3 (09:22→21:20)
[2022-12-24 14:00] VITALS: BP 120/59
[2022-12-24] MEDS: RIVAROXABAN 10MG TAB (XARELTO) PO SCH (16:53)
[2022-12-24 19:44] VITALS: BP 118/58
[2022-12-24 19:46] VITALS: BP 138/58
[2022-12-24] MEDS: rOPINIRole 1MG TAB PO SCH (21:18)
[2022-12-25 06:14] VITALS: BP 127/56
[2022-12-25] MEDS: COMBIVENT RESPIMAT 100-20MCG INHALER 4GM INH SCH ×3 (07:14→20:30)
[2022-12-25] MEDS: MAGIC MOUTHWASH SUSPENSION BTL SSP SCH ×3 (07:30→17:30)
[2022-12-25] MEDS: INSULIN LISPRO (NovoLOG) PER UNIT SC SCH ×4 (08:09→20:24)
[2022-12-25] MEDS: OMEPRAZOLE 20MG CAP PO SCH (08:10)
[2022-12-25] MEDS: guaiFENesin SYRUP 200MG 10ML UDC PO SCH ×3 (08:10→20:23)
[2022-12-25] MEDS: LEVEMIR (INSULIN DETEMIR) 1 UNITS/0.01ML SC SCH ×2 (08:10→20:23)
[2022-12-25] MEDS: ROSUVASTATIN 10 MG TAB (CRESTOR) PO SCH (08:11)
[2022-12-25] MEDS: DULoxetine 30MG CAPSULE (CYMBALTA) PO SCH ×2 (08:11→20:23)
[2022-12-25] MEDS: TAMSULOSIN 0.4 MG CAP PO SCH (08:11)
[2022-12-25] MEDS: BACLOFEN 5MG PER 1/2 TABLET PO SCH ×2 (08:11→12:48)
[2022-12-25] MEDS: SALIVA SUBSTITUTE(MOUTHKOTE) BTL MT SCH ×4 (08:11→20:30)
[2022-12-25] MEDS: SITagliptin 50 MG TAB (JANUVIA) PO SCH (08:11)
[2022-12-25] MEDS: ANUSOL HC CREAM 30GM TOP SCH ×2 (08:12→20:24)
[2022-12-25] MEDS: LORATADINE 10 MG TAB PO SCH (08:12)
[2022-12-25] MEDS: REMEDY PHYTOPLEX Z-GUARD PASTE 113GM TUBE (FROM STOREROOM PRODUCT) TOP SCH ×3 (08:13→20:25)
[2022-12-25] MEDS: atenoloL 25 MG TAB PO SCH ×2 (08:14→20:23)
[2022-12-25] MEDS: VANICREAM MOISTURIZING SKIN CREAM 113GM TUBE TOP SCH ×2 (08:14→20:25)
[2022-12-25] MEDS: MIRALAX *UNIT DOSE* 17GM PACKET PO SCH (12:49)
[2022-12-25 14:00] VITALS: BP 108/59
[2022-12-25] MEDS: RIVAROXABAN 10MG TAB (XARELTO) PO SCH (17:34)
[2022-12-25 20:00] VITALS: BP 121/57
[2022-12-25] MEDS: rOPINIRole 1MG TAB PO SCH (20:22)
[2022-12-26 06:00] VITALS: BP 109/55
[2022-12-26] MEDS: MAGIC MOUTHWASH SUSPENSION BTL SSP SCH ×3 (07:30→17:19)
[2022-12-26] MEDS: COMBIVENT RESPIMAT 100-20MCG INHALER 4GM INH SCH ×2 (08:10→20:13)
[2022-12-26] MEDS: OMEPRAZOLE 20MG CAP PO SCH (08:26)
[2022-12-26] MEDS: ROSUVASTATIN 10 MG TAB (CRESTOR) PO SCH (08:26)
[2022-12-26] MEDS: guaiFENesin SYRUP 200MG 10ML UDC PO SCH ×3 (08:26→20:15)
[2022-12-26] MEDS: MIRALAX *UNIT DOSE* 17GM PACKET PO SCH (08:26)
[2022-12-26] MEDS: BACLOFEN 5MG PER 1/2 TABLET PO SCH ×2 (08:26→12:21)
[2022-12-26] MEDS: TAMSULOSIN 0.4 MG CAP PO SCH (08:26)
[2022-12-26] MEDS: DULoxetine 30MG CAPSULE (CYMBALTA) PO SCH ×2 (08:26→20:16)
[2022-12-26] MEDS: LORATADINE 10 MG TAB PO SCH (08:27)
[2022-12-26] MEDS: SALIVA SUBSTITUTE(MOUTHKOTE) BTL MT SCH ×4 (08:27→20:16)
[2022-12-26] MEDS: SITagliptin 50 MG TAB (JANUVIA) PO SCH (08:27)
[2022-12-26] MEDS: INSULIN LISPRO (NovoLOG) PER UNIT SC SCH ×4 (08:28→20:18)
[2022-12-26] MEDS: REMEDY PHYTOPLEX Z-GUARD PASTE 113GM TUBE (FROM STOREROOM PRODUCT) TOP SCH ×3 (08:30→20:17)
[2022-12-26] MEDS: VANICREAM MOISTURIZING SKIN CREAM 113GM TUBE TOP SCH ×2 (08:30→20:18)
[2022-12-26] MEDS: ANUSOL HC CREAM 30GM TOP SCH ×2 (08:30→20:17)
[2022-12-26] MEDS: atenoloL 25 MG TAB PO SCH ×2 (08:31→20:16)
[2022-12-26] MEDS ORDERED: LEVEMIR (INSULIN DETEMIR) 1 UNITS/0.01ML SC SCH (09:00)
[2022-12-26 09:55] LABS: BASO # 0.1 10^3/uL (0.0-0.2); BASO % 0.6 % (0.0-1.0); EOS # 0.4 10^3/uL (0.0-0.5); EOS % 3.7 % (0.0-3.0); HEMATOCRIT 43.4 % (42.0-52.0); HEMOGLOBIN 14.1 g/dl (13.5-17.5); LYMPH # 2.4 10^3/uL (1.5-5.0); LYMPH % 25.1 % (24.0-44.0); MEAN CORPUSCULAR HEMOGLOBIN 30.9 pg (27.0-33.0); MEAN CORPUSCULAR HGB CONC 32.5 g/dl (32.0-36.5); MEAN CORPUSCULAR VOLUME 95.2 fl (80.0-96.0); MONO # 0.9 10^3/uL (0.0-0.8); MONO % 9.5 % (2.0-8.0); NEUTROPHILS # 5.7 10^3/uL (1.5-8.5); NEUTROPHILS % 60.8 % (36.0-66.0); PLATELET COUNT, AUTOMATED 349 10^3/uL (150-450); RED BLOOD COUNT 4.56 10^6/uL (4.30-6.10); WHITE BLOOD COUNT 9.4 10^3/uL (4.0-10.0)
[2022-12-26 10:29] LABS: BLOOD UREA NITROGEN 31 MG/DL (9-23); CALCIUM LEVEL 9.3 MG/DL (8.3-10.6); CARBON DIOXIDE LEVEL 25 MMOL/L (20-31); CHLORIDE LEVEL 105 MMOL/L (98-107); CREATININE FOR GFR 1.23 MG/DL (0.70-1.30); GLOMERULAR FILTRATION RATE > 60.0 (>42); GLUCOSE, FASTING 175 MG/DL (74-106); POTASSIUM SERUM 4.8 MMOL/L (3.5-5.1); SODIUM LEVEL 139 MMOL/L (136-145)
[2022-12-26 14:00] VITALS: BP 107/57
[2022-12-26] MEDS: RIVAROXABAN 10MG TAB (XARELTO) PO SCH (17:19)
[2022-12-26] MEDS: COPAXONE 40 MG SC SCH (17:46)
[2022-12-26 19:57] VITALS: BP 116/64
[2022-12-26] MEDS: LEVEMIR (INSULIN DETEMIR) 1 UNITS/0.01ML SC SCH (20:16)
[2022-12-26] MEDS: rOPINIRole 1MG TAB PO SCH (20:16)
[2022-12-27 06:12] VITALS: BP 115/64
[2022-12-27] MEDS: INSULIN LISPRO (NovoLOG) PER UNIT SC SCH ×4 (07:30→20:36)
[2022-12-27] MEDS: MAGIC MOUTHWASH SUSPENSION BTL SSP SCH ×3 (07:30→17:23)
[2022-12-27] MEDS: COMBIVENT RESPIMAT 100-20MCG INHALER 4GM INH SCH ×3 (07:42→21:00)
[2022-12-27] MEDS: ROSUVASTATIN 10 MG TAB (CRESTOR) PO SCH (08:48)
[2022-12-27] MEDS: BACLOFEN 5MG PER 1/2 TABLET PO SCH ×2 (08:48→12:16)
[2022-12-27] MEDS: MIRALAX *UNIT DOSE* 17GM PACKET PO SCH (08:48)
[2022-12-27] MEDS: TAMSULOSIN 0.4 MG CAP PO SCH (08:48)
[2022-12-27] MEDS: SITagliptin 50 MG TAB (JANUVIA) PO SCH (08:48)
[2022-12-27] MEDS: OMEPRAZOLE 20MG CAP PO SCH (08:48)
[2022-12-27] MEDS: DULoxetine 30MG CAPSULE (CYMBALTA) PO SCH ×2 (08:48→20:35)
[2022-12-27] MEDS: LORATADINE 10 MG TAB PO SCH (08:48)
[2022-12-27] MEDS: atenoloL 25 MG TAB PO SCH ×2 (08:51→20:35)
[2022-12-27] MEDS: guaiFENesin SYRUP 200MG 10ML UDC PO SCH ×3 (08:51→20:35)
[2022-12-27] MEDS: ANUSOL HC CREAM 30GM TOP SCH ×2 (08:52→20:36)
[2022-12-27] MEDS: SALIVA SUBSTITUTE(MOUTHKOTE) BTL MT SCH ×4 (08:52→20:50)
[2022-12-27] MEDS: VANICREAM MOISTURIZING SKIN CREAM 113GM TUBE TOP SCH ×2 (08:52→20:36)
[2022-12-27] MEDS: REMEDY PHYTOPLEX Z-GUARD PASTE 113GM TUBE (FROM STOREROOM PRODUCT) TOP SCH ×3 (08:52→20:36)
[2022-12-27 14:14] VITALS: BP 108/55
[2022-12-27] MEDS: RIVAROXABAN 10MG TAB (XARELTO) PO SCH (17:24)
[2022-12-27 19:50] VITALS: BP 120/56
[2022-12-27] MEDS: LEVEMIR (INSULIN DETEMIR) 1 UNITS/0.01ML SC SCH (20:35)
[2022-12-27] MEDS: rOPINIRole 1MG TAB PO SCH (20:35)
[2022-12-28 05:37] VITALS: BP 120/68
[2022-12-28] MEDS: MAGIC MOUTHWASH SUSPENSION BTL SSP SCH ×3 (07:30→16:46)
[2022-12-28] MEDS: COMBIVENT RESPIMAT 100-20MCG INHALER 4GM INH SCH ×3 (07:32→20:51)
[2022-12-28] MEDS ORDERED: ONDANSETRON 4MG ORAL DISINTEGRATING TAB PO PRN (08:15)
[2022-12-28] MEDS: BACLOFEN 5MG PER 1/2 TABLET PO SCH ×2 (08:35→14:06)
[2022-12-28] MEDS: OMEPRAZOLE 20MG CAP PO SCH (08:35)
[2022-12-28] MEDS: MIRALAX *UNIT DOSE* 17GM PACKET PO SCH (08:35)
[2022-12-28] MEDS: INSULIN LISPRO (NovoLOG) PER UNIT SC SCH ×4 (08:36→21:00)
[2022-12-28] MEDS: ROSUVASTATIN 10 MG TAB (CRESTOR) PO SCH (08:36)
[2022-12-28] MEDS: LORATADINE 10 MG TAB PO SCH (08:36)
[2022-12-28] MEDS: TAMSULOSIN 0.4 MG CAP PO SCH (08:36)
[2022-12-28] MEDS: DULoxetine 30MG CAPSULE (CYMBALTA) PO SCH ×2 (08:36→21:31)
[2022-12-28] MEDS: SITagliptin 50 MG TAB (JANUVIA) PO SCH (08:36)
[2022-12-28] MEDS: SALIVA SUBSTITUTE(MOUTHKOTE) BTL MT SCH ×4 (08:37→21:29)
[2022-12-28] MEDS: VANICREAM MOISTURIZING SKIN CREAM 113GM TUBE TOP SCH ×2 (08:37→21:31)
[2022-12-28] MEDS: guaiFENesin SYRUP 200MG 10ML UDC PO SCH ×3 (08:37→21:29)
[2022-12-28] MEDS: REMEDY PHYTOPLEX Z-GUARD PASTE 113GM TUBE (FROM STOREROOM PRODUCT) TOP SCH ×3 (08:38→21:32)
[2022-12-28] MEDS: ANUSOL HC CREAM 30GM TOP SCH ×2 (08:38→21:31)
[2022-12-28] MEDS: atenoloL 25 MG TAB PO SCH ×2 (08:43→21:30)
[2022-12-28 14:00] VITALS: BP 101/59
[2022-12-28] MEDS: RIVAROXABAN 10MG TAB (XARELTO) PO SCH (17:02)
[2022-12-28 20:00] VITALS: BP 116/63
[2022-12-28] MEDS: LEVEMIR (INSULIN DETEMIR) 1 UNITS/0.01ML SC SCH (21:29)
[2022-12-28] MEDS: ACETAMINOPHEN TAB 650MG DOSE (2X325MG) PO PRN (21:30)
[2022-12-28] MEDS: rOPINIRole 1MG TAB PO SCH (21:30)
[2022-12-29 05:59] VITALS: BP 108/57
[2022-12-29 06:53] LABS: BASO # 0.1 10^3/uL (0.0-0.2); BASO % 0.8 % (0.0-1.0); EOS # 0.3 10^3/uL (0.0-0.5); EOS % 3.5 % (0.0-3.0); HEMATOCRIT 37.7 % (42.0-52.0); HEMOGLOBIN 12.8 g/dl (13.5-17.5); LYMPH # 1.8 10^3/uL (1.5-5.0); LYMPH % 20.2 % (24.0-44.0); MEAN CORPUSCULAR HEMOGLOBIN 32.1 pg (27.0-33.0); MEAN CORPUSCULAR VOLUME 94.5 fl (80.0-96.0); MONO # 1.2 10^3/uL (0.0-0.8); MONO % 13.1 % (2.0-8.0); NEUTROPHILS # 5.6 10^3/uL (1.5-8.5); NEUTROPHILS % 61.8 % (36.0-66.0); PLATELET COUNT, AUTOMATED 204 10^3/uL (150-450); RED BLOOD COUNT 3.99 10^6/uL (4.30-6.10); WHITE BLOOD COUNT 9.1 10^3/uL (4.0-10.0)
[2022-12-29 07:26] LABS: CALCIUM LEVEL 8.4 MG/DL (8.3-10.6); CREATININE FOR GFR 1.33 MG/DL (0.70-1.30); GLOMERULAR FILTRATION RATE 55.4 (>42); POTASSIUM SERUM 4.4 MMOL/L (3.5-5.1)
[2022-12-29] MEDS: MAGIC MOUTHWASH SUSPENSION BTL SSP SCH ×3 (07:30→16:42)
[2022-12-29] MEDS: OMEPRAZOLE 20MG CAP PO SCH (07:49)
[2022-12-29] MEDS: DULoxetine 30MG CAPSULE (CYMBALTA) PO SCH ×2 (07:49→20:25)
[2022-12-29] MEDS: BACLOFEN 5MG PER 1/2 TABLET PO SCH ×2 (07:49→13:28)
[2022-12-29] MEDS: ROSUVASTATIN 10 MG TAB (CRESTOR) PO SCH (07:49)
[2022-12-29] MEDS: SITagliptin 50 MG TAB (JANUVIA) PO SCH (07:50)
[2022-12-29] MEDS: atenoloL 25 MG TAB PO SCH ×2 (07:50→20:25)
[2022-12-29] MEDS: REMEDY PHYTOPLEX Z-GUARD PASTE 113GM TUBE (FROM STOREROOM PRODUCT) TOP SCH ×3 (07:51→20:27)
[2022-12-29] MEDS: TAMSULOSIN 0.4 MG CAP PO SCH (07:51)
[2022-12-29] MEDS: VANICREAM MOISTURIZING SKIN CREAM 113GM TUBE TOP SCH ×2 (07:52→20:26)
[2022-12-29] MEDS: INSULIN LISPRO (NovoLOG) PER UNIT SC SCH ×4 (07:52→21:00)
[2022-12-29] MEDS: ANUSOL HC CREAM 30GM TOP SCH ×2 (07:53→20:26)
[2022-12-29] MEDS: guaiFENesin SYRUP 200MG 10ML UDC PO SCH ×3 (07:53→21:00)
[2022-12-29] MEDS: COPAXONE 40 MG SC SCH (07:53)
[2022-12-29] MEDS: LORATADINE 10 MG TAB PO SCH (07:54)
[2022-12-29] MEDS: SALIVA SUBSTITUTE(MOUTHKOTE) BTL MT SCH ×5 (07:55→20:27)
[2022-12-29] MEDS: COMBIVENT RESPIMAT 100-20MCG INHALER 4GM INH SCH ×3 (08:00→19:12)
[2022-12-29] MEDS: MIRALAX *UNIT DOSE* 17GM PACKET PO SCH (08:01)
[2022-12-29] MEDS: ACETAMINOPHEN TAB 650MG DOSE (2X325MG) PO PRN ×2 (08:02→20:25)
[2022-12-29] MEDS: LIDOCAINE 5% (LIDODERM) PATCH TD SCH ×2 (13:28)
[2022-12-29 13:48] LABS: URIC ACID 5.3 MG/DL (3.7-9.2)
[2022-12-29 14:00] VITALS: BP 117/55
[2022-12-29 20:00] VITALS: BP 121/68
[2022-12-29] MEDS: rOPINIRole 1MG TAB PO SCH (20:25)
[2022-12-29] MEDS: LEVEMIR (INSULIN DETEMIR) 1 UNITS/0.01ML SC SCH (20:27)
[2022-12-30 06:00] VITALS: BP 108/59
[2022-12-30] MEDS: COMBIVENT RESPIMAT 100-20MCG INHALER 4GM INH SCH ×3 (07:26→19:46)
[2022-12-30] MEDS: MAGIC MOUTHWASH SUSPENSION BTL SSP SCH ×3 (07:57→16:52)
[2022-12-30] MEDS: guaiFENesin SYRUP 200MG 10ML UDC PO SCH ×4 (07:58→21:00)
[2022-12-30] MEDS: INSULIN LISPRO (NovoLOG) PER UNIT SC SCH ×4 (07:58→21:13)
[2022-12-30] MEDS: MIRALAX *UNIT DOSE* 17GM PACKET PO SCH (07:58)
[2022-12-30] MEDS: LIDOCAINE 5% (LIDODERM) PATCH TD SCH ×2 (07:59→08:00)
[2022-12-30] MEDS: ROSUVASTATIN 10 MG TAB (CRESTOR) PO SCH (08:00)
[2022-12-30] MEDS: BACLOFEN 5MG PER 1/2 TABLET PO SCH ×2 (08:00→12:20)
[2022-12-30] MEDS: DULoxetine 30MG CAPSULE (CYMBALTA) PO SCH ×2 (08:01→21:12)
[2022-12-30] MEDS: LORATADINE 10 MG TAB PO SCH (08:01)
[2022-12-30] MEDS: atenoloL 25 MG TAB PO SCH ×2 (08:02→21:12)
[2022-12-30] MEDS: SITagliptin 50 MG TAB (JANUVIA) PO SCH (08:02)
[2022-12-30] MEDS: TAMSULOSIN 0.4 MG CAP PO SCH (08:06)
[2022-12-30] MEDS: OMEPRAZOLE 20MG CAP PO SCH (08:06)
[2022-12-30] MEDS: REMEDY PHYTOPLEX Z-GUARD PASTE 113GM TUBE (FROM STOREROOM PRODUCT) TOP SCH ×3 (08:06→21:14)
[2022-12-30] MEDS: VANICREAM MOISTURIZING SKIN CREAM 113GM TUBE TOP SCH ×2 (08:07→21:14)
[2022-12-30] MEDS: ANUSOL HC CREAM 30GM TOP SCH ×2 (08:08→21:14)
[2022-12-30] MEDS: SALIVA SUBSTITUTE(MOUTHKOTE) BTL MT SCH ×4 (08:09→21:12)
[2022-12-30] MEDS: DICLOFENAC EPOLAMINE 1.3% PATCH TOP SCH ×2 (09:00→21:13)
[2022-12-30 14:00] VITALS: BP 116/56
[2022-12-30] MEDS: ACETAMINOPHEN 650MG ER TAB (TYLENOL ARTHRITIS) PO SCH ×2 (16:00→21:11)
[2022-12-30 20:00] VITALS: BP 116/58
[2022-12-30] MEDS: rOPINIRole 1MG TAB PO SCH (21:11)
[2022-12-30] MEDS: LEVEMIR (INSULIN DETEMIR) 1 UNITS/0.01ML SC SCH (21:12)
[2022-12-31 06:00] VITALS: BP 144/72
[2022-12-31] MEDS: MAGIC MOUTHWASH SUSPENSION BTL SSP SCH ×3 (07:30→16:56)
[2022-12-31] MEDS: COMBIVENT RESPIMAT 100-20MCG INHALER 4GM INH SCH ×3 (07:32→20:11)
[2022-12-31] MEDS: MIRALAX *UNIT DOSE* 17GM PACKET PO SCH (07:34)
[2022-12-31] MEDS: DICLOFENAC EPOLAMINE 1.3% PATCH TOP SCH ×2 (07:34→21:04)
[2022-12-31] MEDS: INSULIN LISPRO (NovoLOG) PER UNIT SC SCH ×2 (07:35→13:04)
[2022-12-31] MEDS: LIDOCAINE 5% (LIDODERM) PATCH TD SCH (07:35)
[2022-12-31] MEDS: ACETAMINOPHEN 650MG ER TAB (TYLENOL ARTHRITIS) PO SCH ×3 (07:36→21:00)
[2022-12-31] MEDS: TAMSULOSIN 0.4 MG CAP PO SCH (07:36)
[2022-12-31] MEDS: atenoloL 25 MG TAB PO SCH ×2 (07:37→21:00)
[2022-12-31] MEDS: DULoxetine 30MG CAPSULE (CYMBALTA) PO SCH ×2 (07:38→20:59)
[2022-12-31] MEDS: SITagliptin 50 MG TAB (JANUVIA) PO SCH (07:38)
[2022-12-31] MEDS: OMEPRAZOLE 20MG CAP PO SCH (07:38)
[2022-12-31] MEDS: LORATADINE 10 MG TAB PO SCH (07:39)
[2022-12-31] MEDS: BACLOFEN 5MG PER 1/2 TABLET PO SCH ×2 (07:39→13:04)
[2022-12-31] MEDS: SALIVA SUBSTITUTE(MOUTHKOTE) BTL MT SCH ×4 (07:40→21:04)
[2022-12-31] MEDS: ROSUVASTATIN 10 MG TAB (CRESTOR) PO SCH (07:40)
[2022-12-31] MEDS: guaiFENesin SYRUP 200MG 10ML UDC PO SCH ×3 (07:41→21:00)
[2022-12-31] MEDS: ANUSOL HC CREAM 30GM TOP SCH ×2 (07:42→21:01)
[2022-12-31] MEDS: REMEDY PHYTOPLEX Z-GUARD PASTE 113GM TUBE (FROM STOREROOM PRODUCT) TOP SCH ×3 (07:42→21:02)
[2022-12-31] MEDS: VANICREAM MOISTURIZING SKIN CREAM 113GM TUBE TOP SCH ×2 (07:42→21:02)
[2022-12-31] MEDS: COPAXONE 40 MG SC SCH ×2 (09:00→16:59)
[2022-12-31 11:10] LABS: BASO # 0.1 10^3/uL (0.0-0.2); BASO % 0.8 % (0.0-1.0); EOS # 0.5 10^3/uL (0.0-0.5); EOS % 6.2 % (0.0-3.0); HEMATOCRIT 40.2 % (42.0-52.0); HEMOGLOBIN 12.9 g/dl (13.5-17.5); LYMPH # 1.7 10^3/uL (1.5-5.0); LYMPH % 21.9 % (24.0-44.0); MEAN CORPUSCULAR HEMOGLOBIN 30.5 pg (27.0-33.0); MEAN CORPUSCULAR HGB CONC 32.1 g/dl (32.0-36.5); MONO # 0.7 10^3/uL (0.0-0.8); MONO % 8.6 % (2.0-8.0); NEUTROPHILS # 4.9 10^3/uL (1.5-8.5); PLATELET COUNT, AUTOMATED 208 10^3/uL (150-450); RED BLOOD COUNT 4.23 10^6/uL (4.30-6.10); WHITE BLOOD COUNT 7.9 10^3/uL (4.0-10.0)
[2022-12-31 11:26] LABS: CALCIUM LEVEL 8.7 MG/DL (8.3-10.6); CREATININE FOR GFR 1.43 MG/DL (0.70-1.30); GLOMERULAR FILTRATION RATE 50.9 (>42); POTASSIUM SERUM 4.3 MMOL/L (3.5-5.1)
[2022-12-31 14:00] VITALS: BP 129/58
[2022-12-31] MEDS ORDERED: NS 1,000 ML IV ONE (14:20)
[2022-12-31 20:45] VITALS: BP 111/56
[2022-12-31] MEDS: rOPINIRole 1MG TAB PO SCH (20:59)
[2023-01-01 06:00] VITALS: BP 124/58
[2023-01-01] MEDS: COMBIVENT RESPIMAT 100-20MCG INHALER 4GM INH SCH ×3 (07:10→20:39)
[2023-01-01 08:42] LABS: BLOOD UREA NITROGEN 27 MG/DL (9-23); CALCIUM LEVEL 8.3 MG/DL (8.3-10.6); CARBON DIOXIDE LEVEL 26 MMOL/L (20-31); CHLORIDE LEVEL 105 MMOL/L (98-107); CREATININE FOR GFR 1.21 MG/DL (0.70-1.30); GLOMERULAR FILTRATION RATE > 60.0 (>42); GLUCOSE, FASTING 204 MG/DL (74-106); POTASSIUM SERUM 4.3 MMOL/L (3.5-5.1); SODIUM LEVEL 140 MMOL/L (136-145)
[2023-01-01] MEDS: MIRALAX *UNIT DOSE* 17GM PACKET PO SCH (09:00)
[2023-01-01] MEDS: ACETAMINOPHEN 650MG ER TAB (TYLENOL ARTHRITIS) PO SCH ×3 (09:00→20:56)
[2023-01-01] MEDS: guaiFENesin SYRUP 200MG 10ML UDC PO SCH ×3 (09:00→20:54)
[2023-01-01] MEDS: DICLOFENAC EPOLAMINE 1.3% PATCH TOP SCH ×2 (09:42→20:55)
[2023-01-01] MEDS: LIDOCAINE 5% (LIDODERM) PATCH TD SCH (09:42)
[2023-01-01] MEDS: DULoxetine 30MG CAPSULE (CYMBALTA) PO SCH ×2 (09:42→20:55)
[2023-01-01] MEDS: MAGIC MOUTHWASH SUSPENSION BTL SSP SCH ×3 (09:42→17:00)
[2023-01-01] MEDS: OMEPRAZOLE 20MG CAP PO SCH (09:43)
[2023-01-01] MEDS: BACLOFEN 5MG PER 1/2 TABLET PO SCH ×2 (09:43→12:04)
[2023-01-01] MEDS: TAMSULOSIN 0.4 MG CAP PO SCH (09:43)
[2023-01-01] MEDS: SITagliptin 50 MG TAB (JANUVIA) PO SCH (09:43)
[2023-01-01] MEDS: ROSUVASTATIN 10 MG TAB (CRESTOR) PO SCH (09:43)
[2023-01-01] MEDS: atenoloL 25 MG TAB PO SCH ×2 (09:44→20:56)
[2023-01-01] MEDS: LORATADINE 10 MG TAB PO SCH (09:44)
[2023-01-01] MEDS: SALIVA SUBSTITUTE(MOUTHKOTE) BTL MT SCH ×4 (09:45→21:00)
[2023-01-01] MEDS: ANUSOL HC CREAM 30GM TOP SCH ×2 (09:45→20:57)
[2023-01-01] MEDS: VANICREAM MOISTURIZING SKIN CREAM 113GM TUBE TOP SCH ×2 (09:46→20:58)
[2023-01-01] MEDS: REMEDY PHYTOPLEX Z-GUARD PASTE 113GM TUBE (FROM STOREROOM PRODUCT) TOP SCH ×3 (09:46→20:58)
[2023-01-01 14:00] VITALS: BP 126/61
[2023-01-01 20:00] VITALS: BP 114/68
[2023-01-01] MEDS: rOPINIRole 1MG TAB PO SCH (20:55)
[2023-01-02 05:33] LABS: BASO # 0.1 10^3/uL (0.0-0.2); BASO % 0.6 % (0.0-1.0); EOS # 0.7 10^3/uL (0.0-0.5); HEMATOCRIT 37.2 % (42.0-52.0); LYMPH # 2.3 10^3/uL (1.5-5.0); LYMPH % 24.6 % (24.0-44.0); MEAN CORPUSCULAR HEMOGLOBIN 30.5 pg (27.0-33.0); MEAN CORPUSCULAR HGB CONC 32.3 g/dl (32.0-36.5); MEAN CORPUSCULAR VOLUME 94.7 fl (80.0-96.0); MONO # 0.7 10^3/uL (0.0-0.8); MONO % 7.9 % (2.0-8.0); NEUTROPHILS # 5.4 10^3/uL (1.5-8.5); NEUTROPHILS % 58.4 % (36.0-66.0); PLATELET COUNT, AUTOMATED 182 10^3/uL (150-450); RED BLOOD COUNT 3.93 10^6/uL (4.30-6.10); WHITE BLOOD COUNT 9.3 10^3/uL (4.0-10.0)
[2023-01-02 06:00] VITALS: BP 119/69
[2023-01-02 06:04] LABS: CALCIUM LEVEL 8.6 MG/DL (8.3-10.6); CREATININE FOR GFR 1.28 MG/DL (0.70-1.30); GLOMERULAR FILTRATION RATE 57.9 (>42); POTASSIUM SERUM 4.3 MMOL/L (3.5-5.1)
[2023-01-02] MEDS: COMBIVENT RESPIMAT 100-20MCG INHALER 4GM INH SCH ×3 (07:29→20:48)
[2023-01-02] MEDS: MAGIC MOUTHWASH SUSPENSION BTL SSP SCH ×3 (07:30→16:54)
[2023-01-02] MEDS: ANUSOL HC CREAM 30GM TOP SCH ×2 (07:52→20:33)
[2023-01-02] MEDS: MIRALAX *UNIT DOSE* 17GM PACKET PO SCH (07:53)
[2023-01-02] MEDS: COPAXONE 40 MG SC SCH (07:53)
[2023-01-02] MEDS: ROSUVASTATIN 10 MG TAB (CRESTOR) PO SCH (07:54)
[2023-01-02] MEDS: DICLOFENAC EPOLAMINE 1.3% PATCH TOP SCH ×2 (07:54→20:33)
[2023-01-02] MEDS: LIDOCAINE 5% (LIDODERM) PATCH TD SCH (07:54)
[2023-01-02] MEDS: BACLOFEN 5MG PER 1/2 TABLET PO SCH ×2 (07:54→12:28)
[2023-01-02] MEDS: SITagliptin 50 MG TAB (JANUVIA) PO SCH (07:54)
[2023-01-02] MEDS: LORATADINE 10 MG TAB PO SCH (07:54)
[2023-01-02] MEDS: TAMSULOSIN 0.4 MG CAP PO SCH (07:55)
[2023-01-02] MEDS: ACETAMINOPHEN 650MG ER TAB (TYLENOL ARTHRITIS) PO SCH ×3 (07:55→20:32)
[2023-01-02] MEDS: guaiFENesin SYRUP 200MG 10ML UDC PO SCH ×3 (07:55→20:31)
[2023-01-02] MEDS: OMEPRAZOLE 20MG CAP PO SCH (07:55)
[2023-01-02] MEDS: DULoxetine 30MG CAPSULE (CYMBALTA) PO SCH ×2 (07:55→20:31)
[2023-01-02] MEDS: SALIVA SUBSTITUTE(MOUTHKOTE) BTL MT SCH ×4 (07:56→20:33)
[2023-01-02] MEDS: atenoloL 25 MG TAB PO SCH ×2 (07:56→20:39)
[2023-01-02] MEDS: REMEDY PHYTOPLEX Z-GUARD PASTE 113GM TUBE (FROM STOREROOM PRODUCT) TOP SCH ×3 (07:57→20:32)
[2023-01-02] MEDS: VANICREAM MOISTURIZING SKIN CREAM 113GM TUBE TOP SCH ×2 (07:57→20:32)
[2023-01-02 14:00] VITALS: BP 118/65
[2023-01-02 20:00] VITALS: BP 125/62
[2023-01-02] MEDS: rOPINIRole 1MG TAB PO SCH (20:31)
[2023-01-03 06:00] VITALS: BP 119/69
[2023-01-03] MEDS: DICLOFENAC EPOLAMINE 1.3% PATCH TOP SCH ×2 (07:29→20:22)
[2023-01-03] MEDS: MIRALAX *UNIT DOSE* 17GM PACKET PO SCH (07:29)
[2023-01-03] MEDS: LIDOCAINE 5% (LIDODERM) PATCH TD SCH (07:30)
[2023-01-03] MEDS: MAGIC MOUTHWASH SUSPENSION BTL SSP SCH ×3 (07:30→16:50)
[2023-01-03] MEDS: SITagliptin 50 MG TAB (JANUVIA) PO SCH (07:31)
[2023-01-03] MEDS: LORATADINE 10 MG TAB PO SCH (07:32)
[2023-01-03] MEDS: OMEPRAZOLE 20MG CAP PO SCH (07:33)
[2023-01-03] MEDS: atenoloL 25 MG TAB PO SCH ×2 (07:33→20:15)
[2023-01-03] MEDS: DULoxetine 30MG CAPSULE (CYMBALTA) PO SCH ×2 (07:34→20:22)
[2023-01-03] MEDS: TAMSULOSIN 0.4 MG CAP PO SCH (07:34)
[2023-01-03] MEDS: BACLOFEN 5MG PER 1/2 TABLET PO SCH ×2 (07:34→12:51)
[2023-01-03] MEDS: ACETAMINOPHEN 650MG ER TAB (TYLENOL ARTHRITIS) PO SCH ×3 (07:35→20:23)
[2023-01-03] MEDS: guaiFENesin SYRUP 200MG 10ML UDC PO SCH ×3 (07:35→20:22)
[2023-01-03] MEDS: ROSUVASTATIN 10 MG TAB (CRESTOR) PO SCH (07:35)
[2023-01-03] MEDS: SALIVA SUBSTITUTE(MOUTHKOTE) BTL MT SCH ×4 (07:36→20:23)
[2023-01-03] MEDS: ANUSOL HC CREAM 30GM TOP SCH ×2 (07:37→20:23)
[2023-01-03] MEDS: REMEDY PHYTOPLEX Z-GUARD PASTE 113GM TUBE (FROM STOREROOM PRODUCT) TOP SCH ×3 (07:37→20:23)
[2023-01-03] MEDS: VANICREAM MOISTURIZING SKIN CREAM 113GM TUBE TOP SCH ×2 (07:38→20:24)
[2023-01-03] MEDS: COMBIVENT RESPIMAT 100-20MCG INHALER 4GM INH SCH ×3 (08:00→20:00)
[2023-01-03 14:00] VITALS: BP 113/61
[2023-01-03 20:00] VITALS: BP 104/59
[2023-01-03] MEDS: rOPINIRole 1MG TAB PO SCH (20:22)
[2023-01-04 06:00] VITALS: BP 117/66
[2023-01-04] MEDS: MAGIC MOUTHWASH SUSPENSION BTL SSP SCH ×3 (07:30→19:51)
[2023-01-04] MEDS: guaiFENesin SYRUP 200MG 10ML UDC PO SCH ×3 (08:17→20:20)
[2023-01-04] MEDS: COMBIVENT RESPIMAT 100-20MCG INHALER 4GM INH SCH ×3 (08:18→20:00)
[2023-01-04] MEDS: MIRALAX *UNIT DOSE* 17GM PACKET PO SCH (09:09)
[2023-01-04] MEDS: OMEPRAZOLE 20MG CAP PO SCH (09:10)
[2023-01-04] MEDS: ACETAMINOPHEN 650MG ER TAB (TYLENOL ARTHRITIS) PO SCH ×3 (09:10→20:21)
[2023-01-04] MEDS: SITagliptin 50 MG TAB (JANUVIA) PO SCH (09:11)
[2023-01-04] MEDS: ROSUVASTATIN 10 MG TAB (CRESTOR) PO SCH (09:12)
[2023-01-04] MEDS: DULoxetine 30MG CAPSULE (CYMBALTA) PO SCH ×2 (09:13→20:21)
[2023-01-04] MEDS: BACLOFEN 5MG PER 1/2 TABLET PO SCH ×2 (09:13→12:35)
[2023-01-04] MEDS: LORATADINE 10 MG TAB PO SCH (09:13)
[2023-01-04] MEDS: TAMSULOSIN 0.4 MG CAP PO SCH (09:14)
[2023-01-04 09:15] VITALS: BP 115/64
[2023-01-04] MEDS: LIDOCAINE 5% (LIDODERM) PATCH TD SCH (09:15)
[2023-01-04] MEDS: ANUSOL HC CREAM 30GM TOP SCH ×2 (09:15→20:22)
[2023-01-04] MEDS: VANICREAM MOISTURIZING SKIN CREAM 113GM TUBE TOP SCH ×2 (09:15→20:22)
[2023-01-04] MEDS: SALIVA SUBSTITUTE(MOUTHKOTE) BTL MT SCH ×4 (09:16→20:23)
[2023-01-04] MEDS: REMEDY PHYTOPLEX Z-GUARD PASTE 113GM TUBE (FROM STOREROOM PRODUCT) TOP SCH ×3 (09:17→20:23)
[2023-01-04] MEDS: atenoloL 25 MG TAB PO SCH ×2 (09:21→20:21)
[2023-01-04] MEDS: DICLOFENAC EPOLAMINE 1.3% PATCH TOP SCH ×2 (12:32→20:22)
[2023-01-04 14:00] VITALS: BP 117/62
[2023-01-04 20:00] VITALS: BP 112/66
[2023-01-04] MEDS: rOPINIRole 1MG TAB PO SCH (20:21)
[2023-01-05 06:00] VITALS: BP 113/70
[2023-01-05 06:07] LABS: BASO # 0.1 10^3/uL (0.0-0.2); BASO % 0.7 % (0.0-1.0); EOS # 0.7 10^3/uL (0.0-0.5); EOS % 6.9 % (0.0-3.0); HEMATOCRIT 38.8 % (42.0-52.0); HEMOGLOBIN 12.9 g/dl (13.5-17.5); LYMPH # 2.4 10^3/uL (1.5-5.0); LYMPH % 24.8 % (24.0-44.0); MEAN CORPUSCULAR HEMOGLOBIN 31.1 pg (27.0-33.0); MEAN CORPUSCULAR HGB CONC 33.2 g/dl (32.0-36.5); MEAN CORPUSCULAR VOLUME 93.5 fl (80.0-96.0); MONO # 0.7 10^3/uL (0.0-0.8); MONO % 6.9 % (2.0-8.0); NEUTROPHILS # 5.8 10^3/uL (1.5-8.5); NEUTROPHILS % 60.3 % (36.0-66.0); PLATELET COUNT, AUTOMATED 189 10^3/uL (150-450); RED BLOOD COUNT 4.15 10^6/uL (4.30-6.10); WHITE BLOOD COUNT 9.6 10^3/uL (4.0-10.0)
[2023-01-05 06:32] LABS: CALCIUM LEVEL 8.9 MG/DL (8.3-10.6); CREATININE FOR GFR 1.29 MG/DL (0.70-1.30); GLOMERULAR FILTRATION RATE 57.3 (>42); POTASSIUM SERUM 4.4 MMOL/L (3.5-5.1)
[2023-01-05] MEDS: COMBIVENT RESPIMAT 100-20MCG INHALER 4GM INH SCH ×3 (07:43→19:23)
[2023-01-05] MEDS: guaiFENesin SYRUP 200MG 10ML UDC PO SCH ×4 (09:00→21:01)
[2023-01-05] MEDS: BACLOFEN 5MG PER 1/2 TABLET PO SCH ×2 (09:05→13:16)
[2023-01-05] MEDS: LORATADINE 10 MG TAB PO SCH (09:05)
[2023-01-05] MEDS: ACETAMINOPHEN 650MG ER TAB (TYLENOL ARTHRITIS) PO SCH ×3 (09:05→21:01)
[2023-01-05] MEDS: DICLOFENAC EPOLAMINE 1.3% PATCH TOP SCH ×2 (09:05→21:03)
[2023-01-05] MEDS: MIRALAX *UNIT DOSE* 17GM PACKET PO SCH (09:05)
[2023-01-05] MEDS: LIDOCAINE 5% (LIDODERM) PATCH TD SCH (09:05)
[2023-01-05] MEDS: ROSUVASTATIN 10 MG TAB (CRESTOR) PO SCH (09:06)
[2023-01-05] MEDS: SITagliptin 50 MG TAB (JANUVIA) PO SCH (09:06)
[2023-01-05] MEDS: DULoxetine 30MG CAPSULE (CYMBALTA) PO SCH ×2 (09:06→21:01)
[2023-01-05] MEDS: OMEPRAZOLE 20MG CAP PO SCH (09:06)
[2023-01-05] MEDS: MAGIC MOUTHWASH SUSPENSION BTL SSP SCH ×3 (09:07→17:38)
[2023-01-05] MEDS: TAMSULOSIN 0.4 MG CAP PO SCH (09:07)
[2023-01-05] MEDS: atenoloL 25 MG TAB PO SCH ×2 (09:07→21:02)
[2023-01-05] MEDS: ANUSOL HC CREAM 30GM TOP SCH ×2 (09:08→21:03)
[2023-01-05] MEDS: VANICREAM MOISTURIZING SKIN CREAM 113GM TUBE TOP SCH ×2 (09:08→21:03)
[2023-01-05] MEDS: SALIVA SUBSTITUTE(MOUTHKOTE) BTL MT SCH ×4 (09:09→21:02)
[2023-01-05] MEDS: REMEDY PHYTOPLEX Z-GUARD PASTE 113GM TUBE (FROM STOREROOM PRODUCT) TOP SCH ×3 (09:09→21:03)
[2023-01-05] MEDS: COPAXONE 40 MG SC SCH (11:42)
[2023-01-05 14:00] VITALS: BP 110/59
[2023-01-05 20:00] VITALS: BP 120/62
[2023-01-05] MEDS: rOPINIRole 1MG TAB PO SCH (21:01)
[2023-01-06 06:00] VITALS: BP 138/67
[2023-01-06] MEDS: MAGIC MOUTHWASH SUSPENSION BTL SSP SCH ×2 (07:30→12:00)
[2023-01-06] MEDS: COMBIVENT RESPIMAT 100-20MCG INHALER 4GM INH SCH ×2 (08:05→13:36)
[2023-01-06] MEDS: guaiFENesin SYRUP 200MG 10ML UDC PO SCH (09:00)
[2023-01-06] MEDS: REMEDY PHYTOPLEX Z-GUARD PASTE 113GM TUBE (FROM STOREROOM PRODUCT) TOP SCH (09:00)
[2023-01-06] MEDS: MIRALAX *UNIT DOSE* 17GM PACKET PO SCH (09:32)
[2023-01-06] MEDS: DICLOFENAC EPOLAMINE 1.3% PATCH TOP SCH (09:32)
[2023-01-06] MEDS: LIDOCAINE 5% (LIDODERM) PATCH TD SCH (09:32)
[2023-01-06] MEDS: TAMSULOSIN 0.4 MG CAP PO SCH (09:33)
[2023-01-06] MEDS: BACLOFEN 5MG PER 1/2 TABLET PO SCH ×2 (09:33→14:16)
[2023-01-06] MEDS: SITagliptin 50 MG TAB (JANUVIA) PO SCH (09:33)
[2023-01-06] MEDS: ROSUVASTATIN 10 MG TAB (CRESTOR) PO SCH (09:34)
[2023-01-06] MEDS: SALIVA SUBSTITUTE(MOUTHKOTE) BTL MT SCH ×2 (09:34→13:00)
[2023-01-06] MEDS: DULoxetine 30MG CAPSULE (CYMBALTA) PO SCH (09:34)
[2023-01-06] MEDS: LORATADINE 10 MG TAB PO SCH (09:34)
[2023-01-06] MEDS: OMEPRAZOLE 20MG CAP PO SCH (09:34)
[2023-01-06 09:35] VITALS: BP 138/67
[2023-01-06] MEDS: VANICREAM MOISTURIZING SKIN CREAM 113GM TUBE TOP SCH (09:35)
[2023-01-06] MEDS: atenoloL 25 MG TAB PO SCH (09:35)
[2023-01-06] MEDS: ACETAMINOPHEN 650MG ER TAB (TYLENOL ARTHRITIS) PO SCH (09:35)
[2023-01-06] MEDS: ANUSOL HC CREAM 30GM TOP SCH (09:36)
[2023-01-06] MEDS ORDERED: BACL10TA2 PO (09:45)
[2023-01-06] MEDS ORDERED: COMBAER6 INH (09:45)
[2023-01-06] MEDS ORDERED: ATEN25TA PO (09:45)
[2023-01-06] MEDS ORDERED: SITA50TAB PO (09:45)
[2023-01-06] MEDS ORDERED: CLAR10TA7 PO (09:45)
[2023-01-06] MEDS ORDERED: ROPI1TAB3 PO (09:45)
[2023-01-06] MEDS ORDERED: CYMB1CAP5 PO (09:45)
[2023-01-06] MEDS ORDERED: OMEP1CAP73 PO (09:45)
[2023-01-06] MEDS ORDERED: TAMS1CAP17 PO (09:45)
[2023-01-06] MEDS ORDERED: PROC1CRE5 TOP (09:45)
[2023-01-06] MEDS ORDERED: CRES40TA PO (09:45)
[2023-01-06 13:58] VITALS: BP 133/64
== END 2023-01-06 15:40 | disposition home health service (06) | DRG 91 ==
LOC: M ED INP 16:10 → M PM&R 18:51
PROVIDERS: ADMIT Physical Medicine & Rehabilitation; ATTEND Physical Medicine & Rehabilitation
DX: G72.81 Critical illness myopathy (principal); I77.72 Dissection of iliac artery; N10 Acute pyelonephritis; E87.0 Hyperosmolality and hypernatremia; N17.9 Acute kidney failure, unspecified; I50.32 Chronic diastolic (congestive) heart failure; R78.81 Bacteremia; J98.11 Atelectasis; R13.10 Dysphagia, unspecified; N32.81 Overactive bladder; G35 Multiple sclerosis; F32.A Depression, unspecified; R33.9 Retention of urine, unspecified; N40.1 Benign prostatic hyperplasia with lower urinary tract symptoms; N18.9 Chronic kidney disease, unspecified; L50.9 Urticaria, unspecified; K21.9 Gastro-esophageal reflux disease without esophagitis; I72.3 Aneurysm of iliac artery; F41.9 Anxiety disorder, unspecified; K59.00 Constipation, unspecified; D69.6 Thrombocytopenia, unspecified; M71.22 Synovial cyst of popliteal space [Baker], left knee; M25.562 Pain in left knee; B96.89 Other specified bacterial agents as the cause of diseases classified elsewhere; M25.462 Effusion, left knee; G25.81 Restless legs syndrome; E87.5 Hyperkalemia; M11.262 Other chondrocalcinosis, left knee; R26.89 Other abnormalities of gait and mobility; E11.22 Type 2 diabetes mellitus with diabetic chronic kidney disease; I25.10 Atherosclerotic heart disease of native coronary artery without angina pectoris; Z95.1 Presence of aortocoronary bypass graft; Z74.09 Other reduced mobility; Z74.1 Need for assistance with personal care; Z79.899 Other long term (current) drug therapy

== ENCOUNTER → 2023-01-14 | Outpatient (REF) | payer MEDICARE, OTHER ==
[~2023-01-14] MED LIST changes: +AMOX250REC PO; +BACL10TA2 PO; +BACTDSTA; +CEFE1INJ2 IV; +CLAR10TA7 PO; +COMBAER6 INH; +CYMB1CAP5 PO; +PROC1CRE5 TOP; +SITA50TAB PO
[2023-01-14 15:16] LABS: APPEARANCE, URINE TURBID (CLEAR); BACTERIA, URINE AUTO 3+ (NEGATIVE); BILIRUBIN, URINE AUTO NEGATIVE (NEGATIVE); BLOOD, URINE BLOOD 2+ (NEGATIVE); COLOR, URINE AMBER (YELLOW); GLUCOSE, URINE (UA) AUTO NEGATIVE (NEGATIVE); KETONE, URINE AUTO NEGATIVE (NEGATIVE); LEUKOCYTE ESTERASE, URINE AUTO 3+ (NEGATIVE); MUCUS, URINE SMALL (NEGATIVE); NITRITE, URINE AUTO POSITIVE (NEGATIVE); PROTEIN, URINE AUTO 2+ mg/dL (NEGATIVE); RBC, URINE AUTO 163 /HPF (0-3); SPECIFIC GRAVITY URINE AUTO 1.013 (1.002-1.035); SQUAMOUS EPITHELIAL CELL UR AU 0 /HPF (0-6); UROBILINOGEN, URINE AUTO 0.2 mg/dL (0.0-2.0); WBC, URINE AUTO TNTC /HPF (0-3)
== END ==
LOC: M SMT 13:34
PROVIDERS: ATTEND Urology
DX: Z01.818 Encounter for other preprocedural examination (principal); N20.0 Calculus of kidney; N39.0 Urinary tract infection, site not specified
CPT/HCPCS: 51702; 81001; 87088; 87186; G0463

== ENCOUNTER 2023-01-23 12:52 | Day surgery (SDC) | payer MEDICARE, OTHER ==
[~2023-01-23] VITALS: Ht 162.6 cm; Wt 74.8 kg
[~2023-01-23 12:52] MED LIST changes: -BACTDSTA; +GENTAMICIN 80 MG in IV 1 EA IV ONE; +VANCOMYCIN HCL 1,000 MG, VIAL MATE ADAPTER 1 EACH in D5W 250 ML IV ONE
[2023-01-23] MEDS ORDERED: LR 1,000 ML IV SCH ×2 (13:40→16:40)
[2023-01-23] MEDS ORDERED: BACTDSTA (14:01)
[2023-01-23] MEDS ORDERED: fentaNYL 100 MCG/2 ML INJECTION As Ordered ONE (14:58)
[2023-01-23] MEDS ORDERED: ONDANSETRON 4MG 2ML VIAL As Ordered ONE (14:58)
[2023-01-23] MEDS ORDERED: LIDOCAINE 2% 100MG/5ML SDV (FOR ANES.) As Ordered ONE (14:59)
[2023-01-23] MEDS ORDERED: propofoL 200 MG/20 ML VIAL As Ordered ONE (14:59)
[2023-01-23] MEDS ORDERED: ACETAMINOPHEN 1000MG 100ML IV BAG As Ordered ONE (14:59)
[2023-01-23] MEDS ORDERED: ISOVUE-300 61% 100ML VIAL As Ordered ONE (15:04)
[2023-01-23] MEDS ORDERED: oxyCODONE 5MG TAB PO PRN (16:40)
[2023-01-23] MEDS ORDERED: HYDROMORPHONE HCL 0.5 MG/ 0.5 ML SYRINGE IV PRN (16:40)
[2023-01-23] MEDS ORDERED: ONDANSETRON 4MG 2ML VIAL IV PRN (16:40)
[2023-01-23] MEDS ORDERED: fentaNYL 100 MCG/2 ML INJECTION IV PRN (16:40)
[2023-01-23] MEDS ORDERED: ACETAMINOPHEN TAB 650MG DOSE (2X325MG) PO PRN (17:15)
[2023-01-23 18:13] VITALS: BP 129/69
[2023-01-30 01:07] LABS: Ca Ox Monohydrate 100 % (.); Size 3x6 mm (.)
== END 2023-01-23 18:25 | disposition home or self-care (01) ==
LOC: M SDC 12:52
PROVIDERS: ATTEND Urology
DX: N13.5 Crossing vessel and stricture of ureter without hydronephrosis (principal); I10 Essential (primary) hypertension; E78.00 Pure hypercholesterolemia, unspecified; E11.9 Type 2 diabetes mellitus without complications; I25.10 Atherosclerotic heart disease of native coronary artery without angina pectoris; K21.9 Gastro-esophageal reflux disease without esophagitis; M19.90 Unspecified osteoarthritis, unspecified site; G35 Multiple sclerosis; F32.A Depression, unspecified; R21 Rash and other nonspecific skin eruption; G62.9 Polyneuropathy, unspecified; N40.0 Benign prostatic hyperplasia without lower urinary tract symptoms; Z95.1 Presence of aortocoronary bypass graft; Z88.8 Allergy status to other drugs, medicaments and biological substances; Z79.899 Other long term (current) drug therapy; Z79.84 Long term (current) use of oral hypoglycemic drugs
CPT/HCPCS: 52356; 74420; 82365; C1769; C1894; C2617; J0131; J1100; J1580; J2405; J3010; Q9967

== ENCOUNTER → 2023-02-02 | Outpatient (REF) | payer MEDICARE, OTHER ==
[~2023-02-02] MED LIST changes: +BACTDSTA; -GENTAMICIN 80 MG in IV 1 EA IV ONE; -VANCOMYCIN HCL 1,000 MG, VIAL MATE ADAPTER 1 EACH in D5W 250 ML IV ONE
[2023-02-02 13:22] LABS: HEMATOCRIT 39.9 % (42.0-52.0); HEMOGLOBIN 12.8 g/dl (13.5-17.5); MEAN CORPUSCULAR HEMOGLOBIN 30.4 pg (27.0-33.0); MEAN CORPUSCULAR HGB CONC 32.1 g/dl (32.0-36.5); MEAN CORPUSCULAR VOLUME 94.8 fl (80.0-96.0); PLATELET COUNT, AUTOMATED 291 10^3/uL (150-450); RED BLOOD COUNT 4.21 10^6/uL (4.30-6.10); WHITE BLOOD COUNT 9.7 10^3/uL (4.0-10.0)
[2023-02-02 13:52] LABS: CALCIUM LEVEL 9.3 MG/DL (8.3-10.6); CREATININE FOR GFR 1.31 MG/DL (0.70-1.30); GLOMERULAR FILTRATION RATE 56.2 (>42); POTASSIUM SERUM 4.5 MMOL/L (3.5-5.1)
[2023-02-02 13:53] LABS: THYROID STIMULATING HORMONE 1.833 uIU/ML (0.55-4.78); TOTAL 25(OH) VITAMIN D 57.1 NG/ML (20.0-100.0)
[2023-02-02 13:54] LABS: FREE T4 0.86 NG/DL (0.89-1.76)
[2023-02-02 14:43] LABS: HEMOGLOBIN A1c 8.1 % (4.0-6.0)
== END ==
LOC: M SFHCADAM 11:30
PROVIDERS: ATTEND Family Medicine
DX: E11.65 Type 2 diabetes mellitus with hyperglycemia (principal); E55.9 Vitamin D deficiency, unspecified; G72.81 Critical illness myopathy; Z79.899 Other long term (current) drug therapy

== ENCOUNTER → 2023-02-25 | Outpatient (REF) | payer MEDICARE, OTHER ==
[2023-02-25 16:50] LABS: CALCIUM LEVEL 9.3 MG/DL (8.3-10.6); CREATININE FOR GFR 1.44 MG/DL (0.70-1.30); GLOMERULAR FILTRATION RATE 50.4 (>42); POTASSIUM SERUM 3.9 MMOL/L (3.5-5.1)
== END ==
LOC: M SFHCADAM 12:23
PROVIDERS: ATTEND Physician Assistant
DX: I87.2 Venous insufficiency (chronic) (peripheral) (principal)

== ENCOUNTER → 2023-02-25 | Outpatient (REF) | payer MEDICARE, OTHER ==
[~2023-02-25] MED LIST changes: +ALCL0.05 TOP; +ASPI81TA26 PO; +B-12100010 PO; +CLOB0.057 TOP; +FLOM0.4C39 PO; +HYDR-3490 PO; +JANU100T PO; +KETO2CR TOP; +KETO2SHA8 TOP; +OMEP-173 PO; +ROSU40TA4 PO; +TRIA1CR80 TOP; +VITA200016 PO
== END ==
LOC: M SFHCDERM 15:13
PROVIDERS: ATTEND Nurse Practitioner Family
DX: L82.1 Other seborrheic keratosis (principal)

== ENCOUNTER 2023-02-28 12:16 | Inpatient (IN) | payer MEDICARE, OTHER ==
[~2023-02-28] VITALS: Ht 162.6 cm; Wt 75.0 kg
[~2023-02-28 12:16] MED LIST changes: -ALCL0.05 TOP; -ASPI81TA26 PO; -B-12100010 PO; -CLOB0.057 TOP; -FLOM0.4C39 PO; -HYDR-3490 PO; -JANU100T PO; -KETO2CR TOP; -KETO2SHA8 TOP; -OMEP-173 PO; -ROSU40TA4 PO; -TRIA1CR80 TOP; -VITA200016 PO
[2023-02-28 14:02] LABS: BASO # 0.1 10^3/uL (0.0-0.2); BASO % 0.6 % (0.0-1.0); EOS # 0.2 10^3/uL (0.0-0.5); EOS % 1.7 % (0.0-3.0); HEMATOCRIT 37.9 % (42.0-52.0); HEMOGLOBIN 12.5 g/dl (13.5-17.5); LYMPH # 1.5 10^3/uL (1.5-5.0); LYMPH % 12.9 % (24.0-44.0); MEAN CORPUSCULAR HEMOGLOBIN 30.5 pg (27.0-33.0); MEAN CORPUSCULAR VOLUME 92.4 fl (80.0-96.0); MONO # 1.2 10^3/uL (0.0-0.8); MONO % 10.2 % (2.0-8.0); NEUTROPHILS # 8.8 10^3/uL (1.5-8.5); NEUTROPHILS % 74.2 % (36.0-66.0); PLATELET COUNT, AUTOMATED 333 10^3/uL (150-450); WHITE BLOOD COUNT 11.9 10^3/uL (4.0-10.0)
[2023-02-28 14:22] LABS: INR 1.1; PROTHROMBIN TIME 14.4 SECONDS (12.5-14.5)
[2023-02-28 14:23] LABS: PARTIAL THROMBOPLASTIN TIME 34.3 SECONDS (24.8-34.2)
[2023-02-28 14:28] LABS: CK-MB VALUE MASS < 1.0 NG/ML (<3.6)
[2023-02-28 14:29] LABS: ALBUMIN 2.8 G/DL (3.2-5.2); BILIRUBIN,DIRECT 0.2 MG/DL (<0.4); BILIRUBIN,TOTAL 0.5 MG/DL (0.3-1.2); CALCIUM LEVEL 9.4 MG/DL (8.3-10.6); CREATININE FOR GFR 1.45 MG/DL (0.70-1.30); POTASSIUM SERUM 3.9 MMOL/L (3.5-5.1)
[2023-02-28 14:30] LABS: CPK CREATINE PHOSPHOKINASE 70 U/L (46-171); MB/CK RELATIVE INDEX 1.42 (< OR =4)
[2023-02-28] MEDS ORDERED: NS 500 ML IV ONE ×2 (14:50→23:45)
[2023-02-28] MEDS ORDERED: ISOVUE-370 76% 100ML VIAL As Ordered ONE (14:58)
[2023-02-28 15:52] LABS: CK-MB VALUE MASS < 1.0 NG/ML (<3.6)
[2023-02-28 15:54] LABS: CPK CREATINE PHOSPHOKINASE 77 U/L (46-171); MB/CK RELATIVE INDEX 1.29 (< OR =4)
[2023-02-28] MEDS ORDERED: MORPHINE 4 MG/ML 1ML VIAL IV ONE (17:20)
[2023-02-28] MEDS ORDERED: cefTRIAXone SOD 1 GM in D5W MINI-BAG PLUS 50 ML IV ONE (17:35)
[2023-02-28] MEDS ORDERED: FLEET ENEMA PR PRN (18:40)
[2023-02-28] MEDS ORDERED: fentaNYL 100 MCG/2 ML INJECTION IV ONE (18:40)
[2023-02-28] MEDS ORDERED: ACETAMINOPHEN TAB 650MG DOSE (2X325MG) PO PRN (18:40)
[2023-02-28] MEDS ORDERED: MORPHINE 2 MG/ML 1ML VIAL IV PRN (18:40)
[2023-02-28] MEDS ORDERED: oxyCODONE 5MG TAB PO PRN (19:05)
[2023-02-28] MEDS ORDERED: ATEN25TA PO (20:00)
[2023-02-28] MEDS ORDERED: BISACODYL 10MG SUPP PR ONE (20:00)
[2023-02-28] MEDS ORDERED: ASPI81TA26 PO (20:00)
[2023-02-28] MEDS ORDERED: BACL10TA2 PO (20:00)
[2023-02-28] MEDS ORDERED: BACLOFEN 10 MG TAB PO ONE (20:00)
[2023-02-28] MEDS ORDERED: JANU100T PO (20:00)
[2023-02-28] MEDS ORDERED: KETOROLAC 30 MG/ML 1ML VIAL IV ONE (20:00)
[2023-02-28] MEDS ORDERED: CYMB1CAP5 PO (20:00)
[2023-02-28] MEDS ORDERED: ROSU40TA4 PO (20:00)
[2023-02-28] MEDS ORDERED: OMEP-173 PO (20:00)
[2023-02-28] MEDS ORDERED: ROPI1TAB3 PO (20:00)
[2023-02-28] MEDS ORDERED: B-12100010 PO (20:00)
[2023-02-28] MEDS ORDERED: HYDR-3490 PO (20:00)
[2023-02-28] MEDS: SENNA 8.6 MG TAB (SENOKOT) PO SCH (20:09)
[2023-02-28] MEDS: LACTULOSE 20GM/30ML SYRUP UDC PO SCH ×2 (20:09→23:09)
[2023-02-28] MEDS: DOCUSATE SODIUM 100MG CAPSULE PO SCH (20:09)
[2023-02-28 22:30] VITALS: BP 100/44
[2023-02-28] MEDS ORDERED: MORPHINE 4 MG/ML 1ML VIAL IV PRN (22:40)
[2023-02-28] MEDS: rOPINIRole 1MG TAB PO SCH (23:09)
[2023-03-01 00:45] VITALS: BP 104/43
[2023-03-01] MEDS ORDERED: NS 500 ML IV ONE (01:05)
[2023-03-01 01:53] VITALS: BP 99/45
[2023-03-01] MEDS ORDERED: NS 1,000 ML IV ONE ×2 (02:05→14:00)
[2023-03-01 03:22] VITALS: BP 100/48
[2023-03-01] MEDS ORDERED: FLOM0.4C39 PO (03:27)
[2023-03-01] MEDS ORDERED: VITA200016 PO (03:33)
[2023-03-01 06:00] VITALS: BP 101/49
[2023-03-01] MEDS: LACTULOSE 20GM/30ML SYRUP UDC PO SCH ×3 (06:00→17:00)
[2023-03-01] MEDS ORDERED: TRIA1CR80 TOP (06:42)
[2023-03-01] MEDS ORDERED: KETO2SHA8 TOP (06:42)
[2023-03-01] MEDS ORDERED: CLOB0.057 TOP (06:42)
[2023-03-01] MEDS ORDERED: ALCL0.05 TOP (06:42)
[2023-03-01] MEDS ORDERED: KETO2CR TOP (06:42)
[2023-03-01] MEDS ORDERED: HOME MED LIST COMPLETE! XX SCH (06:45)
[2023-03-01 07:52] LABS: BASO # 0.1 10^3/uL (0.0-0.2); BASO % 0.5 % (0.0-1.0); EOS # 0.3 10^3/uL (0.0-0.5); EOS % 2.2 % (0.0-3.0); HEMATOCRIT 33.4 % (42.0-52.0); HEMOGLOBIN 10.8 g/dl (13.5-17.5); LYMPH # 1.2 10^3/uL (1.5-5.0); LYMPH % 10.6 % (24.0-44.0); MEAN CORPUSCULAR HGB CONC 32.3 g/dl (32.0-36.5); MEAN CORPUSCULAR VOLUME 92.8 fl (80.0-96.0); MONO # 1.1 10^3/uL (0.0-0.8); MONO % 9.4 % (2.0-8.0); NEUTROPHILS # 8.6 10^3/uL (1.5-8.5); NEUTROPHILS % 76.9 % (36.0-66.0); PLATELET COUNT, AUTOMATED 263 10^3/uL (150-450); WHITE BLOOD COUNT 11.1 10^3/uL (4.0-10.0)
[2023-03-01 08:17] LABS: CALCIUM LEVEL 8.2 MG/DL (8.3-10.6); CREATININE FOR GFR 1.6 MG/DL (0.70-1.30); GLOMERULAR FILTRATION RATE 44.6 (>42); POTASSIUM SERUM 3.9 MMOL/L (3.5-5.1)
[2023-03-01] MEDS: SENNA 8.6 MG TAB (SENOKOT) PO SCH ×2 (09:12→20:25)
[2023-03-01] MEDS: DOCUSATE SODIUM 100MG CAPSULE PO SCH ×2 (09:12→20:25)
[2023-03-01 13:06] VITALS: BP 101/47
[2023-03-01] MEDS: CYANOCOBALAMIN 500 MCG TAB PO SCH (14:18)
[2023-03-01] MEDS: ASPIRIN 81MG ENTERIC TABLET PO SCH (14:18)
[2023-03-01] MEDS: OMEPRAZOLE 20MG CAP PO SCH (14:19)
[2023-03-01] MEDS: cefTRIAXone SOD 1 GM in D5W MINI-BAG PLUS 50 ML IV SCH (17:06)
[2023-03-01] MEDS: DULoxetine 30MG CAPSULE (CYMBALTA) PO SCH (20:24)
[2023-03-01] MEDS: ROSUVASTATIN 10 MG TAB (CRESTOR) PO SCH (20:25)
[2023-03-01] MEDS: rOPINIRole 1MG TAB PO SCH (20:25)
[2023-03-01] MEDS: BACLOFEN 10 MG TAB PO SCH (20:25)
[2023-03-01 22:00] VITALS: BP 108/55
[2023-03-02 05:32] VITALS: BP 114/59
[2023-03-02] MEDS: LACTULOSE 20GM/30ML SYRUP UDC PO SCH ×5 (06:00→23:35)
[2023-03-02 06:31] LABS: BASO % 0.4 % (0.0-1.0); EOS # 0.5 10^3/uL (0.0-0.5); EOS % 4.9 % (0.0-3.0); HEMOGLOBIN 10.6 g/dl (13.5-17.5); LYMPH # 1.9 10^3/uL (1.5-5.0); LYMPH % 19.4 % (24.0-44.0); MEAN CORPUSCULAR HEMOGLOBIN 29.9 pg (27.0-33.0); MEAN CORPUSCULAR HGB CONC 32.1 g/dl (32.0-36.5); MONO # 0.8 10^3/uL (0.0-0.8); MONO % 7.9 % (2.0-8.0); NEUTROPHILS # 6.5 10^3/uL (1.5-8.5); PLATELET COUNT, AUTOMATED 293 10^3/uL (150-450); RED BLOOD COUNT 3.55 10^6/uL (4.30-6.10); WHITE BLOOD COUNT 9.8 10^3/uL (4.0-10.0)
[2023-03-02 06:53] LABS: CALCIUM LEVEL 8.5 MG/DL (8.3-10.6); CREATININE FOR GFR 1.31 MG/DL (0.70-1.30); GLOMERULAR FILTRATION RATE 56.2 (>42)
[2023-03-02] MEDS: DULoxetine 30MG CAPSULE (CYMBALTA) PO SCH ×2 (08:21→20:02)
[2023-03-02] MEDS: BACLOFEN 10 MG TAB PO SCH ×2 (08:21→20:02)
[2023-03-02] MEDS: ASPIRIN 81MG ENTERIC TABLET PO SCH (08:22)
[2023-03-02] MEDS: DOCUSATE SODIUM 100MG CAPSULE PO SCH ×2 (08:22→20:03)
[2023-03-02] MEDS: CYANOCOBALAMIN 500 MCG TAB PO SCH (08:22)
[2023-03-02] MEDS: SENNA 8.6 MG TAB (SENOKOT) PO SCH ×2 (08:23→20:02)
[2023-03-02] MEDS: OMEPRAZOLE 20MG CAP PO SCH (08:23)
[2023-03-02 14:00] VITALS: BP 118/66
[2023-03-02] MEDS: cefTRIAXone SOD 1 GM in D5W MINI-BAG PLUS 50 ML IV SCH (18:10)
[2023-03-02] MEDS: rOPINIRole 1MG TAB PO SCH (20:03)
[2023-03-02] MEDS: ROSUVASTATIN 10 MG TAB (CRESTOR) PO SCH (20:04)
[2023-03-02 20:48] VITALS: BP 122/66
[2023-03-03 05:45] LABS: BASO # 0.1 10^3/uL (0.0-0.2); BASO % 0.5 % (0.0-1.0); EOS # 0.5 10^3/uL (0.0-0.5); EOS % 4.8 % (0.0-3.0); HEMATOCRIT 35.5 % (42.0-52.0); HEMOGLOBIN 11.3 g/dl (13.5-17.5); LYMPH # 1.9 10^3/uL (1.5-5.0); LYMPH % 17.5 % (24.0-44.0); MEAN CORPUSCULAR HEMOGLOBIN 29.4 pg (27.0-33.0); MEAN CORPUSCULAR HGB CONC 31.8 g/dl (32.0-36.5); MEAN CORPUSCULAR VOLUME 92.4 fl (80.0-96.0); MONO # 0.8 10^3/uL (0.0-0.8); MONO % 7.2 % (2.0-8.0); NEUTROPHILS # 7.7 10^3/uL (1.5-8.5); NEUTROPHILS % 69.7 % (36.0-66.0); PLATELET COUNT, AUTOMATED 321 10^3/uL (150-450); RED BLOOD COUNT 3.84 10^6/uL (4.30-6.10); WHITE BLOOD COUNT 11.1 10^3/uL (4.0-10.0)
[2023-03-03] MEDS: LACTULOSE 20GM/30ML SYRUP UDC PO SCH (06:00)
[2023-03-03 06:08] VITALS: BP 121/68
[2023-03-03 06:17] LABS: BLOOD UREA NITROGEN 28 MG/DL (9-23); CALCIUM LEVEL 8.8 MG/DL (8.3-10.6); CARBON DIOXIDE LEVEL 27 MMOL/L (20-31); CHLORIDE LEVEL 106 MMOL/L (98-107); CREATININE FOR GFR 1.18 MG/DL (0.70-1.30); GLOMERULAR FILTRATION RATE > 60.0 (>42); GLUCOSE, FASTING 161 MG/DL (74-106); POTASSIUM SERUM 4.5 MMOL/L (3.5-5.1); SODIUM LEVEL 142 MMOL/L (136-145)
[2023-03-03] MEDS: CYANOCOBALAMIN 500 MCG TAB PO SCH (09:27)
[2023-03-03] MEDS: SENNA 8.6 MG TAB (SENOKOT) PO SCH ×2 (09:27→20:38)
[2023-03-03] MEDS: DOCUSATE SODIUM 100MG CAPSULE PO SCH ×2 (09:27→20:35)
[2023-03-03] MEDS: ASPIRIN 81MG ENTERIC TABLET PO SCH (09:28)
[2023-03-03] MEDS: OMEPRAZOLE 20MG CAP PO SCH (09:28)
[2023-03-03] MEDS: DULoxetine 30MG CAPSULE (CYMBALTA) PO SCH ×2 (09:28→20:35)
[2023-03-03] MEDS: BACLOFEN 10 MG TAB PO SCH (09:28)
[2023-03-03] MEDS: DOXYCYCLINE HYCLATE 100MG TABLET PO SCH ×2 (13:15→20:38)
[2023-03-03 14:00] VITALS: BP 122/65
[2023-03-03] MEDS: LACTOBACILLUS ACIDOPHILUS CAP (BACID) PO SCH (17:17)
[2023-03-03] MEDS: cefTRIAXone SOD 1 GM in D5W MINI-BAG PLUS 50 ML IV SCH (17:18)
[2023-03-03] MEDS: BACLOFEN 5MG PER 1/2 TABLET PO SCH (20:36)
[2023-03-03] MEDS: ROSUVASTATIN 10 MG TAB (CRESTOR) PO SCH (20:37)
[2023-03-03] MEDS: rOPINIRole 1MG TAB PO SCH (20:38)
[2023-03-03 22:21] VITALS: BP 126/67
[2023-03-04 06:18] VITALS: BP 122/68
[2023-03-04 06:18] LABS: BASO # 0.1 10^3/uL (0.0-0.2); BASO % 0.5 % (0.0-1.0); EOS # 0.5 10^3/uL (0.0-0.5); EOS % 4.8 % (0.0-3.0); HEMATOCRIT 36.9 % (42.0-52.0); HEMOGLOBIN 11.8 g/dl (13.5-17.5); LYMPH # 2.1 10^3/uL (1.5-5.0); LYMPH % 18.9 % (24.0-44.0); MEAN CORPUSCULAR HEMOGLOBIN 29.3 pg (27.0-33.0); MEAN CORPUSCULAR VOLUME 91.6 fl (80.0-96.0); MONO # 0.9 10^3/uL (0.0-0.8); MONO % 7.7 % (2.0-8.0); NEUTROPHILS # 7.7 10^3/uL (1.5-8.5); NEUTROPHILS % 67.7 % (36.0-66.0); PLATELET COUNT, AUTOMATED 310 10^3/uL (150-450); RED BLOOD COUNT 4.03 10^6/uL (4.30-6.10); WHITE BLOOD COUNT 11.3 10^3/uL (4.0-10.0)
[2023-03-04 06:45] LABS: CALCIUM LEVEL 9.1 MG/DL (8.3-10.6); CREATININE FOR GFR 1.28 MG/DL (0.70-1.30); GLOMERULAR FILTRATION RATE 57.7 (>42); POTASSIUM SERUM 4.3 MMOL/L (3.5-5.1)
[2023-03-04] MEDS: ACETAMINOPHEN 500 MG TAB PO SCH ×2 (09:00→22:55)
[2023-03-04] MEDS: CYANOCOBALAMIN 500 MCG TAB PO SCH (09:02)
[2023-03-04] MEDS: DOXYCYCLINE HYCLATE 100MG TABLET PO SCH ×2 (09:03→22:55)
[2023-03-04] MEDS: LACTOBACILLUS ACIDOPHILUS CAP (BACID) PO SCH ×2 (09:03→18:15)
[2023-03-04] MEDS: BACLOFEN 5MG PER 1/2 TABLET PO SCH ×2 (09:03→22:55)
[2023-03-04] MEDS: OMEPRAZOLE 20MG CAP PO SCH (09:03)
[2023-03-04] MEDS: SENNA 8.6 MG TAB (SENOKOT) PO SCH ×2 (09:03→22:56)
[2023-03-04] MEDS: DOCUSATE SODIUM 100MG CAPSULE PO SCH ×2 (09:03→22:55)
[2023-03-04] MEDS: DULoxetine 30MG CAPSULE (CYMBALTA) PO SCH ×2 (09:04→22:55)
[2023-03-04] MEDS: ASPIRIN 81MG ENTERIC TABLET PO SCH (09:04)
[2023-03-04] MEDS ORDERED: KETOROLAC TROMETHAMINE 10 MG TAB PO PRN (13:50)
[2023-03-04 14:30] VITALS: BP 125/67
[2023-03-04] MEDS: cefTRIAXone SOD 1 GM in D5W MINI-BAG PLUS 50 ML IV SCH (18:15)
[2023-03-04 21:14] VITALS: BP 124/67
[2023-03-04] MEDS: ROSUVASTATIN 10 MG TAB (CRESTOR) PO SCH (22:54)
[2023-03-04] MEDS: rOPINIRole 1MG TAB PO SCH (22:55)
[2023-03-05 06:10] VITALS: BP 121/66
[2023-03-05 06:52] LABS: BASO # 0.1 10^3/uL (0.0-0.2); BASO % 0.5 % (0.0-1.0); EOS # 0.7 10^3/uL (0.0-0.5); EOS % 6.5 % (0.0-3.0); HEMATOCRIT 37.2 % (42.0-52.0); HEMOGLOBIN 12.3 g/dl (13.5-17.5); LYMPH # 2.2 10^3/uL (1.5-5.0); LYMPH % 21.4 % (24.0-44.0); MEAN CORPUSCULAR HGB CONC 33.1 g/dl (32.0-36.5); MEAN CORPUSCULAR VOLUME 90.7 fl (80.0-96.0); MONO # 0.9 10^3/uL (0.0-0.8); MONO % 8.3 % (2.0-8.0); NEUTROPHILS # 6.6 10^3/uL (1.5-8.5); NEUTROPHILS % 62.7 % (36.0-66.0); PLATELET COUNT, AUTOMATED 335 10^3/uL (150-450); WHITE BLOOD COUNT 10.5 10^3/uL (4.0-10.0)
[2023-03-05 07:15] LABS: CALCIUM LEVEL 8.9 MG/DL (8.3-10.6); CREATININE FOR GFR 1.32 MG/DL (0.70-1.30); GLOMERULAR FILTRATION RATE 55.7 (>42); POTASSIUM SERUM 4.5 MMOL/L (3.5-5.1)
[2023-03-05] MEDS ORDERED: CEFDINIR 300 MG CAP (OMNICEF) PO SCH (09:00)
[2023-03-05] MEDS: CYANOCOBALAMIN 500 MCG TAB PO SCH (09:52)
[2023-03-05] MEDS: ACETAMINOPHEN 500 MG TAB PO SCH ×2 (09:53→22:24)
[2023-03-05] MEDS: OMEPRAZOLE 20MG CAP PO SCH (09:53)
[2023-03-05] MEDS: LACTOBACILLUS ACIDOPHILUS CAP (BACID) PO SCH ×2 (09:53→18:24)
[2023-03-05] MEDS: BACLOFEN 5MG PER 1/2 TABLET PO SCH ×2 (09:54→22:23)
[2023-03-05] MEDS: DOXYCYCLINE HYCLATE 100MG TABLET PO SCH ×2 (09:54→22:23)
[2023-03-05] MEDS: DOCUSATE SODIUM 100MG CAPSULE PO SCH ×2 (09:54→22:24)
[2023-03-05] MEDS: SENNA 8.6 MG TAB (SENOKOT) PO SCH ×2 (09:54→22:23)
[2023-03-05] MEDS: DULoxetine 30MG CAPSULE (CYMBALTA) PO SCH ×2 (09:54→22:23)
[2023-03-05] MEDS: ASPIRIN 81MG ENTERIC TABLET PO SCH (09:54)
[2023-03-05 14:00] VITALS: BP 148/76
[2023-03-05] MEDS: ROSUVASTATIN 10 MG TAB (CRESTOR) PO SCH (22:22)
[2023-03-05] MEDS: rOPINIRole 1MG TAB PO SCH (22:24)
[2023-03-05 22:26] VITALS: BP 115/68
[2023-03-06 06:00] VITALS: BP 115/68
[2023-03-06 06:14] LABS: BASO # 0.1 10^3/uL (0.0-0.2); BASO % 0.5 % (0.0-1.0); EOS # 0.8 10^3/uL (0.0-0.5); HEMATOCRIT 39.2 % (42.0-52.0); HEMOGLOBIN 12.6 g/dl (13.5-17.5); LYMPH # 2.3 10^3/uL (1.5-5.0); LYMPH % 19.6 % (24.0-44.0); MEAN CORPUSCULAR HEMOGLOBIN 29.6 pg (27.0-33.0); MEAN CORPUSCULAR HGB CONC 32.1 g/dl (32.0-36.5); MEAN CORPUSCULAR VOLUME 92.2 fl (80.0-96.0); MONO # 0.9 10^3/uL (0.0-0.8); MONO % 7.3 % (2.0-8.0); NEUTROPHILS # 7.6 10^3/uL (1.5-8.5); NEUTROPHILS % 65.1 % (36.0-66.0); PLATELET COUNT, AUTOMATED 360 10^3/uL (150-450); RED BLOOD COUNT 4.25 10^6/uL (4.30-6.10); WHITE BLOOD COUNT 11.6 10^3/uL (4.0-10.0)
[2023-03-06 06:38] LABS: C REACTIVE PROTEIN QUANTITATIV 4.3 MG/DL (<1.0)
[2023-03-06 06:39] LABS: CALCIUM LEVEL 9.1 MG/DL (8.3-10.6); CREATININE FOR GFR 1.24 MG/DL (0.70-1.30); GLOMERULAR FILTRATION RATE 59.9 (>42); POTASSIUM SERUM 4.6 MMOL/L (3.5-5.1)
[2023-03-06] MEDS: LACTOBACILLUS ACIDOPHILUS CAP (BACID) PO SCH (09:15)
[2023-03-06] MEDS: DULoxetine 30MG CAPSULE (CYMBALTA) PO SCH (09:15)
[2023-03-06] MEDS: SENNA 8.6 MG TAB (SENOKOT) PO SCH (09:15)
[2023-03-06] MEDS: DOCUSATE SODIUM 100MG CAPSULE PO SCH (09:15)
[2023-03-06] MEDS: DOXYCYCLINE HYCLATE 100MG TABLET PO SCH (09:15)
[2023-03-06] MEDS: CYANOCOBALAMIN 500 MCG TAB PO SCH (09:15)
[2023-03-06] MEDS: ASPIRIN 81MG ENTERIC TABLET PO SCH (09:15)
[2023-03-06] MEDS: OMEPRAZOLE 20MG CAP PO SCH (09:15)
[2023-03-06] MEDS: ACETAMINOPHEN 500 MG TAB PO SCH (09:16)
[2023-03-06] MEDS ORDERED: RISATAB3 PO (11:18)
[2023-03-06] MEDS ORDERED: DOXY100T PO (11:18)
[2023-03-06] MEDS ORDERED: COLA100C5 PO (11:18)
[2023-03-06] MEDS ORDERED: ACET-683 PO (11:18)
[2023-03-06] MEDS: BACLOFEN 5MG PER 1/2 TABLET PO SCH (11:20)
== END 2023-03-06 11:40 | DRG 699 ==
LOC: M ED 12:16 → M ED INP 18:39 → ENRESERV 21:14 → M MS5PR 22:26
PROVIDERS: ADMIT Internal Medicine Nephrology; ATTEND Internal Medicine Nephrology
DX: T83.511A Infection and inflammatory reaction due to indwelling urethral catheter, initial encounter (principal); N13.6 Pyonephrosis; G82.20 Paraplegia, unspecified; G35 Multiple sclerosis; N31.9 Neuromuscular dysfunction of bladder, unspecified; K59.09 Other constipation; M51.16 Intervertebral disc disorders with radiculopathy, lumbar region; Y84.6 Urinary catheterization as the cause of abnormal reaction of the patient, or of later complication, without mention of misadventure at the time of the procedure; I12.9 Hypertensive chronic kidney disease with stage 1 through stage 4 chronic kidney disease, or unspecified chronic kidney disease; N18.30 Chronic kidney disease, stage 3 unspecified; E11.40 Type 2 diabetes mellitus with diabetic neuropathy, unspecified; E11.22 Type 2 diabetes mellitus with diabetic chronic kidney disease; I25.10 Atherosclerotic heart disease of native coronary artery without angina pectoris; G25.81 Restless legs syndrome; E78.2 Mixed hyperlipidemia; M47.816 Spondylosis without myelopathy or radiculopathy, lumbar region; M47.812 Spondylosis without myelopathy or radiculopathy, cervical region; M25.552 Pain in left hip; K21.9 Gastro-esophageal reflux disease without esophagitis; F32.A Depression, unspecified; R53.1 Weakness; I95.9 Hypotension, unspecified; R33.9 Retention of urine, unspecified; L21.9 Seborrheic dermatitis, unspecified; Z95.1 Presence of aortocoronary bypass graft; Z79.899 Other long term (current) drug therapy; Z88.8 Allergy status to other drugs, medicaments and biological substances; Z79.82 Long term (current) use of aspirin

== ENCOUNTER → 2023-04-29 | Outpatient (REF) | payer MEDICARE, OTHER ==
[~2023-04-29] MED LIST changes: +ACET-683 PO; +ALCL0.05 TOP; +ASPI81TA26 PO; +B-12100010 PO; +CLOB0.057 TOP; +COLA100C5 PO; +DOXY100T PO; +FLOM0.4C39 PO; +HYDR-3490 PO; +JANU100T PO; +KETO2CR TOP; +KETO2SHA8 TOP; +OMEP-173 PO; +RISATAB3 PO; -ROPI1TAB3 PO; +ROPI1TAB73 PO; +ROSU40TA4 PO; +TRIA1CR80 TOP; +VITA200016 PO
[2023-04-29 13:55] LABS: HEMATOCRIT 40.9 % (42.0-52.0); MEAN CORPUSCULAR HEMOGLOBIN 29.7 pg (27.0-33.0); MEAN CORPUSCULAR HGB CONC 31.8 g/dl (32.0-36.5); MEAN CORPUSCULAR VOLUME 93.4 fl (80.0-96.0); PLATELET COUNT, AUTOMATED 229 10^3/uL (150-450); RED BLOOD COUNT 4.38 10^6/uL (4.30-6.10); WHITE BLOOD COUNT 12.2 10^3/uL (4.0-10.0)
[2023-04-29 14:07] LABS: HEMOGLOBIN A1c 7.4 % (4.0-6.0)
[2023-04-29 14:26] LABS: ALBUMIN 3.2 G/DL (3.2-5.2); ALKALINE PHOSPHATASE 75 U/L (46-116); ALT/SGPT 32 U/L (7.0-40); AST/SGOT 16 U/L (<34); BILIRUBIN,TOTAL 0.4 MG/DL (0.3-1.2); BLOOD UREA NITROGEN 29 MG/DL (9-23); CALCIUM LEVEL 8.8 MG/DL (8.3-10.6); CARBON DIOXIDE LEVEL 27 MMOL/L (20-31); CHLORIDE LEVEL 107 MMOL/L (98-107); CHOLESTEROL LEVEL 94 MG/DL (<200); CHOLESTEROL RISK RATIO 1.87 (<5); GLOMERULAR FILTRATION RATE > 60.0 (>42); GLUCOSE, FASTING 240 MG/DL (74-106); HDL CHOLESTEROL 50.2 MG/DL (>40); LDL CHOLESTEROL 17.2 MG/DL (<100); NON-HDL-C 43.8 MG/DL; SODIUM LEVEL 143 MMOL/L (136-145); TOTAL PROTEIN 6.1 G/DL (5.7-8.2); TRIGLYCERIDES LEVEL 133 MG/DL (<150)
[2023-04-29 14:27] LABS: THYROID STIMULATING HORMONE 2.149 uIU/ML (0.55-4.78)
== END ==
LOC: M SFHCADAM 09:30
PROVIDERS: ATTEND Family Medicine
DX: I25.10 Atherosclerotic heart disease of native coronary artery without angina pectoris (principal); E11.49 Type 2 diabetes mellitus with other diabetic neurological complication; E11.622 Type 2 diabetes mellitus with other skin ulcer; E78.5 Hyperlipidemia, unspecified; N18.32 Chronic kidney disease, stage 3b

== ENCOUNTER 2023-06-16 16:10 | Outpatient (CLI) | payer MEDICARE, OTHER ==
[~2023-06-16] VITALS: Ht 162.6 cm; Wt 74.5 kg
[2023-06-16 16:10] VITALS: BP 131/68; O2SAT 94
[~2023-06-16 16:10] MED LIST changes: +methylPREDNISolone 1,000 MG, VIAL MATE ADAPTER 1 EACH in NS 250 ML IV ONE
[2023-06-16 17:35] VITALS: BP 123/95; O2SAT 95
== END 2023-06-16 17:35 | disposition home or self-care (01) ==
LOC: M INFU 16:10
PROVIDERS: ATTEND Psychiatry & Neurology Neurology
DX: G35 Multiple sclerosis (principal); R26.2 Difficulty in walking, not elsewhere classified; Z88.8 Allergy status to other drugs, medicaments and biological substances
CPT/HCPCS: 96365; J2930

== ENCOUNTER 2023-06-17 16:15 | Outpatient (CLI) | payer MEDICARE, OTHER ==
[~2023-06-17] VITALS: Ht 162.6 cm; Wt 74.5 kg
[2023-06-17 16:15] VITALS: BP 118/71; O2SAT 95
[~2023-06-17 16:15] MED LIST changes: -methylPREDNISolone 1,000 MG, VIAL MATE ADAPTER 1 EACH in NS 250 ML IV ONE
[2023-06-17] MEDS ORDERED: methylPREDNISolone 1,000 MG, VIAL MATE ADAPTER 1 EACH in NS 250 ML IV ONE (16:30)
[2023-06-17 17:30] VITALS: BP 124/64; O2SAT 97
== END 2023-06-17 17:30 ==
LOC: M INFU 16:15
PROVIDERS: ATTEND Psychiatry & Neurology Neurology
DX: G35 Multiple sclerosis (principal); R26.2 Difficulty in walking, not elsewhere classified; Z88.8 Allergy status to other drugs, medicaments and biological substances
CPT/HCPCS: 96365; J2930

== ENCOUNTER → 2023-06-19 | Outpatient (CLI) | payer MEDICARE, OTHER ==
[2023-06-19 17:56] LABS: APPEARANCE, URINE HAZY (CLEAR); BACTERIA, URINE AUTO 1+ (NEGATIVE); BILIRUBIN, URINE AUTO NEGATIVE (NEGATIVE); BLOOD, URINE BLOOD 1+ (NEGATIVE); COLOR, URINE YELLOW (YELLOW); GLUCOSE, URINE (UA) AUTO NEGATIVE (NEGATIVE); KETONE, URINE AUTO NEGATIVE (NEGATIVE); LEUKOCYTE ESTERASE, URINE AUTO 3+ (NEGATIVE); MUCUS, URINE SMALL (NEGATIVE); NITRITE, URINE AUTO POSITIVE (NEGATIVE); PROTEIN, URINE AUTO NEGATIVE (NEGATIVE); RBC, URINE AUTO 2 /HPF (0-3); SPECIFIC GRAVITY URINE AUTO 1.013 (1.002-1.035); SQUAMOUS EPITHELIAL CELL UR AU 0 /HPF (0-6); UROBILINOGEN, URINE AUTO 0.2 mg/dL (0.0-2.0); WBC, URINE AUTO 46 /HPF (0-3)
[2023-06-19 17:57] LABS: HEMOGLOBIN A1c 7.4 % (4.0-6.0)
[2023-06-19 18:02] LABS: CALCIUM LEVEL 8.4 MG/DL (8.3-10.6); CREATININE FOR GFR 1.55 MG/DL (0.70-1.30); GLOMERULAR FILTRATION RATE 46.3 (>42); MAGNESIUM LEVEL 1.8 MG/DL (1.8-2.4); POTASSIUM SERUM 3.1 MMOL/L (3.5-5.1)
== END ==
LOC: M LAB 16:47
PROVIDERS: ATTEND Family Medicine
DX: N18.32 Chronic kidney disease, stage 3b (principal)

== ENCOUNTER 2023-06-20 16:23 | Outpatient (CLI) | payer MEDICARE, OTHER ==
[~2023-06-20] VITALS: Ht 162.6 cm; Wt 74.0 kg
[2023-06-20 16:57] VITALS: BP 126/58; TEMP 97.7; O2SAT 96
[2023-06-20] MEDS ORDERED: methylPREDNISolone 1,000 MG, VIAL MATE ADAPTER 1 EACH in NS 250 ML IV ONE (18:00)
[2023-06-20 18:43] VITALS: BP 126/60; TEMP 97.9; O2SAT 95
== END 2023-06-20 18:43 | disposition home or self-care (01) ==
LOC: M OPCLI4PR 16:23 → M OPP 16:23 → M MSPAV 16:57 → M OPCLI4PR 18:43
PROVIDERS: ATTEND Psychiatry & Neurology Neurology
DX: G35 Multiple sclerosis (principal); R26.2 Difficulty in walking, not elsewhere classified
CPT/HCPCS: 96365; J2930

== ENCOUNTER 2023-07-08 16:43 | Inpatient (IN) | payer MEDICARE, OTHER ==
[~2023-07-08] VITALS: Ht 165.1 cm; Wt 71.5 kg
[2023-07-08 17:56] LABS: BASO % 0.2 % (0.0-1.0); EOS # 0.4 10^3/uL (0.0-0.5); EOS % 4.5 % (0.0-3.0); HEMATOCRIT 40.7 % (42.0-52.0); HEMOGLOBIN 13.3 g/dl (13.5-17.5); LYMPH # 0.8 10^3/uL (1.5-5.0); MEAN CORPUSCULAR HEMOGLOBIN 29.6 pg (27.0-33.0); MEAN CORPUSCULAR HGB CONC 32.7 g/dl (32.0-36.5); MEAN CORPUSCULAR VOLUME 90.6 fl (80.0-96.0); MONO % 11.7 % (2.0-8.0); NEUTROPHILS # 6.2 10^3/uL (1.5-8.5); NEUTROPHILS % 74.4 % (36.0-66.0); PLATELET COUNT, AUTOMATED 309 10^3/uL (150-450); RED BLOOD COUNT 4.49 10^6/uL (4.30-6.10); WHITE BLOOD COUNT 8.4 10^3/uL (4.0-10.0)
[2023-07-08 18:15] LABS: CALCIUM LEVEL 9.4 MG/DL (8.3-10.6); CREATININE FOR GFR 1.67 MG/DL (0.70-1.30); GLOMERULAR FILTRATION RATE 42.5 (>42); POTASSIUM SERUM 3.6 MMOL/L (3.5-5.1)
[2023-07-08 18:37] LABS: VENOUS BASE EXCESS 4.1 (-2.0-2.0); VENOUS HCO3 31.3 MMOL/L (23.0-27.0); VENOUS O2 SATURATION 67.9 % (60.0-80.0); VENOUS PARTIAL PRESSURE CO2 57.7 mmHg (38.0-50.0); VENOUS PARTIAL PRESSURE O2 38.2 mmHg (30.0-50.0); VENOUS PH 7.352 UNITS (7.330-7.430); VENOUS STANDARD HCO3 27.4 MMOL/L; VENOUS TOTAL CO2 33.1 MMOL/L (24.0-28.0)
[2023-07-08 19:09] LABS: ALBUMIN 2.5 G/DL (3.2-5.2); BILIRUBIN,DIRECT 0.2 MG/DL (<0.4); BILIRUBIN,TOTAL 0.5 MG/DL (0.3-1.2)
[2023-07-08 19:12] LABS: THYROID STIMULATING HORMONE 2.01 uIU/ML (0.55-4.78)
[2023-07-08] MEDS ORDERED: ISOVUE-370 76% 100ML VIAL As Ordered ONE (20:05)
[2023-07-08 20:28] LABS: PROCALCITONIN 0.1 ng/ml
[2023-07-08 21:09] LABS: CK-MB VALUE MASS < 1.0 NG/ML (<3.6); CPK CREATINE PHOSPHOKINASE 62 U/L (46-171); MB/CK RELATIVE INDEX 1.61 (< OR =4)
[2023-07-08 21:17] LABS: APPEARANCE, URINE CLOUDY (CLEAR); BACTERIA, URINE AUTO 2+ (NEGATIVE); BILIRUBIN, URINE AUTO NEGATIVE (NEGATIVE); BLOOD, URINE BLOOD 2+ (NEGATIVE); COLOR, URINE YELLOW (YELLOW); GLUCOSE, URINE (UA) AUTO NEGATIVE (NEGATIVE); KETONE, URINE AUTO NEGATIVE (NEGATIVE); LEUKOCYTE ESTERASE, URINE AUTO 3+ (NEGATIVE); MUCUS, URINE SMALL (NEGATIVE); NITRITE, URINE AUTO NEGATIVE (NEGATIVE); PROTEIN, URINE AUTO 2+ mg/dL (NEGATIVE); RBC, URINE AUTO 8 /HPF (0-3); SPECIFIC GRAVITY URINE AUTO 1.014 (1.002-1.035); SQUAMOUS EPITHELIAL CELL UR AU 0 /HPF (0-6); WBC, URINE AUTO 146 /HPF (0-3)
[2023-07-08 22:07] LABS: CK-MB VALUE MASS < 1.0 NG/ML (<3.6); CPK CREATINE PHOSPHOKINASE 97 U/L (46-171); MB/CK RELATIVE INDEX 1.03 (< OR =4)
[2023-07-08] MEDS ORDERED: FUROSEMIDE 40MG/4ML VIAL IV ONE (22:30)
[2023-07-09] MEDS ORDERED: METH2.5T48 PO (05:04)
[2023-07-09] MEDS ORDERED: DOCU100C16 PO (05:04)
[2023-07-09] MEDS ORDERED: GLIP5TAB8 PO (05:04)
[2023-07-09 06:28] LABS: HEMATOCRIT 37.3 % (42.0-52.0); HEMOGLOBIN 12.6 g/dl (13.5-17.5); MEAN CORPUSCULAR HEMOGLOBIN 30.2 pg (27.0-33.0); MEAN CORPUSCULAR HGB CONC 33.8 g/dl (32.0-36.5); MEAN CORPUSCULAR VOLUME 89.4 fl (80.0-96.0); PLATELET COUNT, AUTOMATED 315 10^3/uL (150-450); RED BLOOD COUNT 4.17 10^6/uL (4.30-6.10); WHITE BLOOD COUNT 8.4 10^3/uL (4.0-10.0)
[2023-07-09] MEDS ORDERED: HOME MED LIST COMPLETE! XX SCH (06:30)
[2023-07-09 06:54] LABS: CALCIUM LEVEL 9.5 MG/DL (8.3-10.6); CREATININE FOR GFR 1.67 MG/DL (0.70-1.30); GLOMERULAR FILTRATION RATE 42.5 (>42); MAGNESIUM LEVEL 1.6 MG/DL (1.8-2.4)
[2023-07-09 07:00] LABS: PROCALCITONIN 0.11 ng/ml
[2023-07-09] MEDS ORDERED: MAG SULF 1GM/100ML (MAG RUN) 1 GM in IV 1 EA IV ONE (07:05)
[2023-07-09] MEDS ORDERED: FUROSEMIDE 40MG/4ML VIAL IV SCH (09:00)
[2023-07-09] MEDS ORDERED: GLUCOSE 4GM CHEW TABLET PO PRN (12:55)
[2023-07-09] MEDS ORDERED: GLUCAGON INJ 1MG VIAL SC PRN (12:55)
[2023-07-09] MEDS ORDERED: DEXTROSE 50% 50ML SYRINGE IV PRN (12:55)
[2023-07-09 14:00] VITALS: BP 117/68; TEMP 99; O2SAT 89
[2023-07-09] MEDS: ASPIRIN 81MG ENTERIC TABLET PO SCH (14:12)
[2023-07-09] MEDS: OMEPRAZOLE 20MG CAP PO SCH (14:12)
[2023-07-09] MEDS: DOCUSATE SODIUM 100MG CAPSULE PO SCH ×2 (14:12→19:50)
[2023-07-09] MEDS: CYANOCOBALAMIN 500 MCG TAB PO SCH (14:12)
[2023-07-09] MEDS: MAGNESIUM OXIDE 400MG TAB (MAG-OX) PO SCH ×2 (14:12→19:50)
[2023-07-09] MEDS: AZITHROMYCIN 250MG TABLET PO SCH (14:39)
[2023-07-09] MEDS: cefTRIAXone SOD 2 GM in D5W MINI-BAG PLUS 50 ML IV SCH (14:39)
[2023-07-09 15:01] LABS: ERYTHROCYTE SEDIMENTATION RATE 112 mm/hr (0-20)
[2023-07-09 15:24] LABS: C REACTIVE PROTEIN QUANTITATIV 16.5 MG/DL (<1.0)
[2023-07-09 15:26] LABS: PERCENT SATURATION 4.1 % (19.7-50.0)
[2023-07-09 15:28] LABS: TOTAL 25(OH) VITAMIN D 63.5 NG/ML (20.0-100.0)
[2023-07-09] MEDS: INSULIN LISPRO (NovoLOG) PER UNIT SC SCH ×2 (17:30→20:41)
[2023-07-09] MEDS: rOPINIRole 1MG TAB PO SCH (19:50)
[2023-07-09] MEDS: ROSUVASTATIN 10 MG TAB (CRESTOR) PO SCH (19:50)
[2023-07-09 20:00] VITALS: BP 112/67; TEMP 98.2; O2SAT 91
[2023-07-09 23:47] VITALS: O2SAT 91
[2023-07-10] VITALS (10 sets, daily range): BP systolic 105–118; BP diastolic 58–67; TEMP 98.6–102.4; O2SAT 85–94
[2023-07-10] MEDS ORDERED: IPRATROPIUM 0.5MG/ALBUTEROL 2.5MG INH SOL UD 3ML (DUONEB) NEB ONE (05:30)
[2023-07-10 06:22] LABS: BASO % 0.4 % (0.0-1.0); EOS # 0.2 10^3/uL (0.0-0.5); EOS % 2.5 % (0.0-3.0); HEMATOCRIT 39.6 % (42.0-52.0); HEMOGLOBIN 13.1 g/dl (13.5-17.5); LYMPH % 11.3 % (24.0-44.0); MEAN CORPUSCULAR HEMOGLOBIN 29.9 pg (27.0-33.0); MEAN CORPUSCULAR HGB CONC 33.1 g/dl (32.0-36.5); MEAN CORPUSCULAR VOLUME 90.4 fl (80.0-96.0); MONO % 18.2 % (2.0-8.0); NEUTROPHILS # 6.2 10^3/uL (1.5-8.5); NEUTROPHILS % 67.1 % (36.0-66.0); PLATELET COUNT, AUTOMATED 334 10^3/uL (150-450); RED BLOOD COUNT 4.38 10^6/uL (4.30-6.10); WHITE BLOOD COUNT 9.2 10^3/uL (4.0-10.0)
[2023-07-10 06:48] LABS: MONO # 1.7 10^3/uL (0.0-0.8)
[2023-07-10 07:20] LABS: CALCIUM LEVEL 9.6 MG/DL (8.3-10.6); CREATININE FOR GFR 1.69 MG/DL (0.70-1.30); GLOMERULAR FILTRATION RATE 41.9 (>42); POTASSIUM SERUM 3.8 MMOL/L (3.5-5.1)
[2023-07-10] MEDS: ASPIRIN 81MG ENTERIC TABLET PO SCH (10:11)
[2023-07-10] MEDS: AZITHROMYCIN 250MG TABLET PO SCH (10:11)
[2023-07-10] MEDS: CYANOCOBALAMIN 500 MCG TAB PO SCH (10:12)
[2023-07-10] MEDS: OMEPRAZOLE 20MG CAP PO SCH (10:12)
[2023-07-10] MEDS: MAGNESIUM OXIDE 400MG TAB (MAG-OX) PO SCH ×2 (10:12→20:31)
[2023-07-10] MEDS: DOCUSATE SODIUM 100MG CAPSULE PO SCH ×2 (10:12→20:31)
[2023-07-10] MEDS: INSULIN LISPRO (NovoLOG) PER UNIT SC SCH ×4 (10:13→20:32)
[2023-07-10] MEDS: HEPARIN SOD (PORCINE) 5000UNITS/ML 1ML VIAL/SYRINGE SC SCH ×2 (13:12→21:16)
[2023-07-10] MEDS: cefTRIAXone SOD 2 GM in D5W MINI-BAG PLUS 50 ML IV SCH (15:03)
[2023-07-10] MEDS: ACETAMINOPHEN TAB 650MG DOSE (2X325MG) PO PRN ×2 (15:03→20:31)
[2023-07-10] MEDS ORDERED: FUROSEMIDE 40MG/4ML VIAL IV STA (15:46)
[2023-07-10 16:34] LABS: ABG BASE EXCESS 7.1 (-2.0-2.0); ABG HCO3 31.2 MMOL/L (22.0-26.0); ABG O2 SATURATION 91.1 % (95.0-99.0); ABG PARTIAL PRESSURE CO2 42.2 mmHg (35.0-45.0); ABG PARTIAL PRESSURE O2 60.2 mmHg (75.0-100.0); ABG STANDARD HCO3 30.8 MMOL/L. (22.0-26.0); ABG TOTAL CO2 32.5 MMOL/L (23.0-31.0); ABG pH (ARTERIAL) 7.487 UNITS (7.350-7.450)
[2023-07-10] MEDS: CEFEPIME HCL 1 GM in D5W MINI-BAG PLUS 50 ML IV SCH (18:23)
[2023-07-10 19:06] LABS: MYCOPLASMA PNEUMONIAE IgG 125 U/mL (0-99); MYCOPLASMA PNEUMONIAE IgM <770 U/mL (0-769)
[2023-07-10] MEDS ORDERED: methylPREDNISolone 125MG 2ML VIAL IV ONE (19:35)
[2023-07-10] MEDS: ROSUVASTATIN 10 MG TAB (CRESTOR) PO SCH (20:31)
[2023-07-10] MEDS: rOPINIRole 1MG TAB PO SCH (20:31)
[2023-07-10] MEDS ORDERED: IPRATROPIUM 0.5MG/ALBUTEROL 2.5MG INH SOL UD 3ML (DUONEB) NEB PRN (21:50)
[2023-07-10] MEDS ORDERED: KETOROLAC 30 MG/ML 1ML VIAL IV ONE (21:50)
[2023-07-11] VITALS (9 sets, daily range): BP systolic 102–120; BP diastolic 48–71; TEMP 96.5–98.1; O2SAT 87–97
[2023-07-11] MEDS: methylPREDNISolone 40MG 1ML VIAL IV SCH ×2 (05:24→17:31)
[2023-07-11] MEDS: CEFEPIME HCL 1 GM in D5W MINI-BAG PLUS 50 ML IV SCH ×2 (05:24→17:31)
[2023-07-11] MEDS: HEPARIN SOD (PORCINE) 5000UNITS/ML 1ML VIAL/SYRINGE SC SCH ×3 (05:25→21:46)
[2023-07-11 06:11] LABS: ABG BASE EXCESS 5.4 (-2.0-2.0); ABG HCO3 30.8 MMOL/L (22.0-26.0); ABG O2 SATURATION 92.7 % (95.0-99.0); ABG PARTIAL PRESSURE CO2 47.8 mmHg (35.0-45.0); ABG PARTIAL PRESSURE O2 66.7 mmHg (75.0-100.0); ABG STANDARD HCO3 29.2 MMOL/L. (22.0-26.0); ABG TOTAL CO2 32.3 MMOL/L (23.0-31.0); ABG pH (ARTERIAL) 7.427 UNITS (7.350-7.450)
[2023-07-11 06:49] LABS: BASO % 0.2 % (0.0-1.0); HEMATOCRIT 41.1 % (42.0-52.0); HEMOGLOBIN 13.6 g/dl (13.5-17.5); LYMPH # 0.4 10^3/uL (1.5-5.0); LYMPH % 6.4 % (24.0-44.0); MEAN CORPUSCULAR HGB CONC 33.1 g/dl (32.0-36.5); MEAN CORPUSCULAR VOLUME 90.5 fl (80.0-96.0); MONO # 0.3 10^3/uL (0.0-0.8); MONO % 5.3 % (2.0-8.0); NEUTROPHILS # 5.5 10^3/uL (1.5-8.5); NEUTROPHILS % 87.8 % (36.0-66.0); PLATELET COUNT, AUTOMATED 384 10^3/uL (150-450); RED BLOOD COUNT 4.54 10^6/uL (4.30-6.10); WHITE BLOOD COUNT 6.3 10^3/uL (4.0-10.0)
[2023-07-11 07:15] LABS: CALCIUM LEVEL 10.2 MG/DL (8.3-10.6); CREATININE FOR GFR 2.33 MG/DL (0.70-1.30); GLOMERULAR FILTRATION RATE 28.9 (>42); MAGNESIUM LEVEL 2.2 MG/DL (1.8-2.4); POTASSIUM SERUM 4.1 MMOL/L (3.5-5.1)
[2023-07-11] MEDS ORDERED: GLUCOSE 4GM CHEW TABLET PO PRN (07:20)
[2023-07-11] MEDS ORDERED: DEXTROSE 50% 50ML SYRINGE IV PRN (07:20)
[2023-07-11] MEDS ORDERED: HumuLIN R (REGULAR) INSULIN (NovoLIN R) **100U/ML** PER UNIT IV STA (07:21)
[2023-07-11] MEDS ORDERED: INSULIN LISPRO (NovoLOG) PER UNIT SC SCH (08:00)
[2023-07-11] MEDS: ASPIRIN 81MG ENTERIC TABLET PO SCH (08:11)
[2023-07-11] MEDS: MAGNESIUM OXIDE 400MG TAB (MAG-OX) PO SCH ×2 (08:11→21:46)
[2023-07-11] MEDS: CYANOCOBALAMIN 500 MCG TAB PO SCH (08:11)
[2023-07-11] MEDS: OMEPRAZOLE 20MG CAP PO SCH (08:11)
[2023-07-11] MEDS: AZITHROMYCIN 250MG TABLET PO SCH (08:11)
[2023-07-11] MEDS: DOCUSATE SODIUM 100MG CAPSULE PO SCH ×2 (08:11→21:47)
[2023-07-11] MEDS ORDERED: NS 1,000 ML IV ONE (08:55)
[2023-07-11] MEDS ORDERED: FUROSEMIDE 40MG/4ML VIAL IV SCH (09:00)
[2023-07-11] MEDS: INSULIN LISPRO (NovoLOG) PER UNIT SC SCH ×2 (12:24→17:31)
[2023-07-11 14:36] LABS: CALCIUM LEVEL 9.9 MG/DL (8.3-10.6); CREATININE FOR GFR 2.38 MG/DL (0.70-1.30); GLOMERULAR FILTRATION RATE 28.2 (>42); POTASSIUM SERUM 3.6 MMOL/L (3.5-5.1)
[2023-07-11] MEDS ORDERED: MIRALAX *UNIT DOSE* 17GM PACKET PO ONE (15:30)
[2023-07-11 17:12] LABS: APPEARANCE, URINE CLOUDY (CLEAR); BACTERIA, URINE AUTO 1+ (NEGATIVE); BILIRUBIN, URINE AUTO NEGATIVE (NEGATIVE); BLOOD, URINE BLOOD 2+ (NEGATIVE); COLOR, URINE AMBER (YELLOW); GLUCOSE, URINE (UA) AUTO NEGATIVE (NEGATIVE); KETONE, URINE AUTO NEGATIVE (NEGATIVE); LEUKOCYTE ESTERASE, URINE AUTO 3+ (NEGATIVE); MUCUS, URINE SMALL (NEGATIVE); NITRITE, URINE AUTO NEGATIVE (NEGATIVE); PROTEIN, URINE AUTO 2+ mg/dL (NEGATIVE); RBC, URINE AUTO 16 /HPF (0-3); SPECIFIC GRAVITY URINE AUTO 1.017 (1.002-1.035); SQUAMOUS EPITHELIAL CELL UR AU 2 /HPF (0-6); UROBILINOGEN, URINE AUTO 0.2 mg/dL (0.0-2.0); WBC, URINE AUTO TNTC /HPF (0-3)
[2023-07-11 17:53] LABS: COMPLEMENT C3 144.1 MG/DL (90.0-170.0); COMPLEMENT C4 58.4 MG/DL (12-36)
[2023-07-11 17:54] LABS: RHEUMATOID FACTOR QUANT < 3.5 IU/ML (<14)
[2023-07-11 18:27] LABS: HIV 1&2 SCREEN NEGATIVE (NEGATIVE)
[2023-07-11] MEDS: MIRALAX *UNIT DOSE* 17GM PACKET PO SCH (21:46)
[2023-07-11] MEDS: ROSUVASTATIN 10 MG TAB (CRESTOR) PO SCH (21:46)
[2023-07-11] MEDS: rOPINIRole 1MG TAB PO SCH (21:47)
[2023-07-12] MEDS: INSULIN LISPRO (NovoLOG) PER UNIT SC SCH ×4 (00:20→17:31)
[2023-07-12 04:43] VITALS: BP 103/64; TEMP 98.8; O2SAT 89
[2023-07-12] MEDS: HEPARIN SOD (PORCINE) 5000UNITS/ML 1ML VIAL/SYRINGE SC SCH ×3 (05:58→21:26)
[2023-07-12] MEDS: methylPREDNISolone 40MG 1ML VIAL IV SCH ×2 (05:58→17:31)
[2023-07-12] MEDS: CEFEPIME HCL 1 GM in D5W MINI-BAG PLUS 50 ML IV SCH ×2 (06:01→17:31)
[2023-07-12 07:24] LABS: BASO % 0.1 % (0.0-1.0); HEMATOCRIT 33.8 % (42.0-52.0); HEMOGLOBIN 11.6 g/dl (13.5-17.5); LYMPH # 0.8 10^3/uL (1.5-5.0); LYMPH % 5.1 % (24.0-44.0); MEAN CORPUSCULAR HEMOGLOBIN 30.3 pg (27.0-33.0); MEAN CORPUSCULAR HGB CONC 34.3 g/dl (32.0-36.5); MEAN CORPUSCULAR VOLUME 88.3 fl (80.0-96.0); MONO # 1.3 10^3/uL (0.0-0.8); MONO % 8.2 % (2.0-8.0); NEUTROPHILS # 13.6 10^3/uL (1.5-8.5); NEUTROPHILS % 86.1 % (36.0-66.0); PLATELET COUNT, AUTOMATED 412 10^3/uL (150-450); RED BLOOD COUNT 3.83 10^6/uL (4.30-6.10); WHITE BLOOD COUNT 15.8 10^3/uL (4.0-10.0)
[2023-07-12 07:43] LABS: CALCIUM LEVEL 9.6 MG/DL (8.3-10.6); CREATININE FOR GFR 2.36 MG/DL (0.70-1.30); GLOMERULAR FILTRATION RATE 28.5 (>42); POTASSIUM SERUM 4.1 MMOL/L (3.5-5.1)
[2023-07-12] MEDS: ASPIRIN 81MG ENTERIC TABLET PO SCH (08:41)
[2023-07-12] MEDS: MIRALAX *UNIT DOSE* 17GM PACKET PO SCH ×2 (08:41→21:25)
[2023-07-12] MEDS: DOXYCYCLINE HYCLATE 100MG TABLET PO SCH ×2 (08:41→21:26)
[2023-07-12] MEDS: MAGNESIUM OXIDE 400MG TAB (MAG-OX) PO SCH ×2 (08:41→21:26)
[2023-07-12] MEDS: CYANOCOBALAMIN 500 MCG TAB PO SCH (08:41)
[2023-07-12] MEDS: DOCUSATE SODIUM 100MG CAPSULE PO SCH ×2 (08:41→21:26)
[2023-07-12] MEDS: OMEPRAZOLE 20MG CAP PO SCH (08:41)
[2023-07-12] MEDS ORDERED: HumuLIN R (REGULAR) INSULIN (NovoLIN R) **100U/ML** PER UNIT IV STA (13:08)
[2023-07-12] MEDS ORDERED: NS 1,000 ML IV ONE (13:10)
[2023-07-12] MEDS: LEVEMIR (INSULIN DETEMIR) 1 UNITS/0.01ML SC SCH (13:39)
[2023-07-12 14:00] VITALS: BP 106/65; TEMP 98.1; O2SAT 91
[2023-07-12 18:31] LABS: CRYOGLOBULINS NEGATIVE (NEGATIVE)
[2023-07-12 19:44] VITALS: BP 112/61; TEMP 98.2; O2SAT 93
[2023-07-12] MEDS: ROSUVASTATIN 10 MG TAB (CRESTOR) PO SCH (21:25)
[2023-07-12] MEDS: rOPINIRole 1MG TAB PO SCH (21:26)
[2023-07-13] MEDS: INSULIN LISPRO (NovoLOG) PER UNIT SC SCH ×4 (00:39→17:52)
[2023-07-13 05:20] VITALS: BP 103/63; TEMP 98.2; O2SAT 92
[2023-07-13] MEDS: HEPARIN SOD (PORCINE) 5000UNITS/ML 1ML VIAL/SYRINGE SC SCH ×3 (05:59→21:28)
[2023-07-13] MEDS: methylPREDNISolone 40MG 1ML VIAL IV SCH ×2 (05:59→17:52)
[2023-07-13 06:09] LABS: BASO % 0.1 % (0.0-1.0); HEMATOCRIT 32.8 % (42.0-52.0); HEMOGLOBIN 11.1 g/dl (13.5-17.5); LYMPH # 1.2 10^3/uL (1.5-5.0); LYMPH % 8.4 % (24.0-44.0); MEAN CORPUSCULAR HGB CONC 33.8 g/dl (32.0-36.5); MEAN CORPUSCULAR VOLUME 88.6 fl (80.0-96.0); MONO # 1.3 10^3/uL (0.0-0.8); NEUTROPHILS % 81.8 % (36.0-66.0); PLATELET COUNT, AUTOMATED 418 10^3/uL (150-450); WHITE BLOOD COUNT 14.6 10^3/uL (4.0-10.0)
[2023-07-13 06:16] LABS: CALCIUM LEVEL 9.9 MG/DL (8.3-10.6); CREATININE FOR GFR 1.94 MG/DL (0.70-1.30); GLOMERULAR FILTRATION RATE 35.7 (>42); MAGNESIUM LEVEL 2.2 MG/DL (1.8-2.4); POTASSIUM SERUM 4.4 MMOL/L (3.5-5.1)
[2023-07-13] MEDS: MIRALAX *UNIT DOSE* 17GM PACKET PO SCH ×2 (09:00→21:28)
[2023-07-13] MEDS ORDERED: GLATIRAMER ACETATE 40 MG/ML SC SCH (09:00)
[2023-07-13] MEDS: LEVEMIR (INSULIN DETEMIR) 1 UNITS/0.01ML SC SCH (10:34)
[2023-07-13] MEDS: DOXYCYCLINE HYCLATE 100MG TABLET PO SCH ×2 (10:35→21:28)
[2023-07-13] MEDS: CYANOCOBALAMIN 500 MCG TAB PO SCH (10:35)
[2023-07-13] MEDS: OMEPRAZOLE 20MG CAP PO SCH (10:35)
[2023-07-13] MEDS: MAGNESIUM OXIDE 400MG TAB (MAG-OX) PO SCH ×2 (10:35→21:28)
[2023-07-13] MEDS: DOCUSATE SODIUM 100MG CAPSULE PO SCH ×2 (10:35→21:27)
[2023-07-13] MEDS: ASPIRIN 81MG ENTERIC TABLET PO SCH (10:35)
[2023-07-13 14:00] VITALS: BP 104/62; TEMP 98.2; O2SAT 94
[2023-07-13] MEDS ORDERED: CEFEPIME HCL 1 GM in D5W MINI-BAG PLUS 50 ML IV SCH (17:00)
[2023-07-13 18:57] VITALS: O2SAT 93
[2023-07-13 19:00] VITALS: O2SAT 94
[2023-07-13 20:00] VITALS: BP 139/68; TEMP 97.5; O2SAT 95
[2023-07-13] MEDS: ROSUVASTATIN 10 MG TAB (CRESTOR) PO SCH (21:27)
[2023-07-13] MEDS: rOPINIRole 1MG TAB PO SCH (21:28)
[2023-07-14 00:38] VITALS: O2SAT 95
[2023-07-14 00:39] VITALS: O2SAT 94
[2023-07-14] MEDS: INSULIN LISPRO (NovoLOG) PER UNIT SC SCH ×3 (00:43→12:11)
[2023-07-14 05:29] VITALS: BP 100/69; TEMP 96.9; O2SAT 92
[2023-07-14] MEDS: HEPARIN SOD (PORCINE) 5000UNITS/ML 1ML VIAL/SYRINGE SC SCH ×2 (05:42→13:56)
[2023-07-14 05:53] LABS: BASO % 0.2 % (0.0-1.0); HEMATOCRIT 36.1 % (42.0-52.0); HEMOGLOBIN 11.7 g/dl (13.5-17.5); LYMPH # 1.8 10^3/uL (1.5-5.0); LYMPH % 13.3 % (24.0-44.0); MEAN CORPUSCULAR HEMOGLOBIN 29.3 pg (27.0-33.0); MEAN CORPUSCULAR HGB CONC 32.4 g/dl (32.0-36.5); MEAN CORPUSCULAR VOLUME 90.3 fl (80.0-96.0); MONO # 1.5 10^3/uL (0.0-0.8); MONO % 11.5 % (2.0-8.0); NEUTROPHILS # 9.8 10^3/uL (1.5-8.5); NEUTROPHILS % 73.9 % (36.0-66.0); PLATELET COUNT, AUTOMATED 435 10^3/uL (150-450); WHITE BLOOD COUNT 13.2 10^3/uL (4.0-10.0)
[2023-07-14 06:15] LABS: CALCIUM LEVEL 9.7 MG/DL (8.3-10.6); CREATININE FOR GFR 1.64 MG/DL (0.70-1.30); GLOMERULAR FILTRATION RATE 43.4 (>42); MAGNESIUM LEVEL 2.2 MG/DL (1.8-2.4); POTASSIUM SERUM 4.4 MMOL/L (3.5-5.1)
[2023-07-14] MEDS: MAGNESIUM OXIDE 400MG TAB (MAG-OX) PO SCH (09:50)
[2023-07-14] MEDS: ASPIRIN 81MG ENTERIC TABLET PO SCH (09:50)
[2023-07-14] MEDS: OMEPRAZOLE 20MG CAP PO SCH (09:50)
[2023-07-14] MEDS: DOCUSATE SODIUM 100MG CAPSULE PO SCH (09:50)
[2023-07-14] MEDS: MIRALAX *UNIT DOSE* 17GM PACKET PO SCH (09:50)
[2023-07-14] MEDS: CYANOCOBALAMIN 500 MCG TAB PO SCH (09:50)
[2023-07-14] MEDS: DOXYCYCLINE HYCLATE 100MG TABLET PO SCH (09:50)
[2023-07-14] MEDS: LEVEMIR (INSULIN DETEMIR) 1 UNITS/0.01ML SC SCH (09:51)
[2023-07-14] MEDS ORDERED: INSUDET SC (10:38)
[2023-07-14] MEDS ORDERED: DOXY100T PO (10:40)
[2023-07-14] MEDS ORDERED: CEFE1INJ2 IV (10:40)
[2023-07-14 12:07] VITALS: O2SAT 93
[2023-07-14 14:00] VITALS: BP 116/69; TEMP 98.1; O2SAT 92
[2023-07-14 14:29] VITALS: O2SAT 94
[2023-07-15] MEDS ORDERED: METHOTREXATE 2.5MG TAB PO SCH (09:00)
== END 2023-07-14 16:27 | DRG 196 ==
LOC: M ED 16:43 → M ED INP 23:44 → ENRESERV 07-09 12:16 → M MSPAV 07-09 13:30
PROVIDERS: ADMIT Family Medicine; ATTEND General Practice
PROC: B246ZZZ Ultrasonography of Right and Left Heart (ICD-10-PCS; principal; 2023-07-09)
DX: J84.9 Interstitial pulmonary disease, unspecified (principal); J15.69 Pneumonia due to other Gram-negative bacteria; J96.01 Acute respiratory failure with hypoxia; I13.0 Hypertensive heart and chronic kidney disease with heart failure and stage 1 through stage 4 chronic kidney disease, or unspecified chronic kidney disease; N39.0 Urinary tract infection, site not specified; N17.9 Acute kidney failure, unspecified; J98.11 Atelectasis; T83.511A Infection and inflammatory reaction due to indwelling urethral catheter, initial encounter; R29.6 Repeated falls; R53.1 Weakness; G35 Multiple sclerosis; E78.5 Hyperlipidemia, unspecified; E11.65 Type 2 diabetes mellitus with hyperglycemia; G25.81 Restless legs syndrome; N40.0 Benign prostatic hyperplasia without lower urinary tract symptoms; N31.9 Neuromuscular dysfunction of bladder, unspecified; E11.40 Type 2 diabetes mellitus with diabetic neuropathy, unspecified; I25.10 Atherosclerotic heart disease of native coronary artery without angina pectoris; M47.816 Spondylosis without myelopathy or radiculopathy, lumbar region; B96.1 Klebsiella pneumoniae [K. pneumoniae] as the cause of diseases classified elsewhere; F32.A Depression, unspecified; E11.22 Type 2 diabetes mellitus with diabetic chronic kidney disease; K21.9 Gastro-esophageal reflux disease without esophagitis; N18.30 Chronic kidney disease, stage 3 unspecified; I50.9 Heart failure, unspecified; M47.812 Spondylosis without myelopathy or radiculopathy, cervical region; D50.9 Iron deficiency anemia, unspecified; D63.8 Anemia in other chronic diseases classified elsewhere; K59.09 Other constipation; Z99.3 Dependence on wheelchair; Z95.1 Presence of aortocoronary bypass graft; Z79.82 Long term (current) use of aspirin; Z79.899 Other long term (current) drug therapy; Z88.8 Allergy status to other drugs, medicaments and biological substances

== ENCOUNTER 2023-07-14 11:29 | Inpatient (IN) | payer MEDICARE, OTHER ==
[~2023-07-14] VITALS: Ht 165.1 cm; Wt 69.1 kg
[~2023-07-14 11:29] MED LIST changes: +DOCU100C16 PO; +GLIP5TAB17 PO; +INSUDET SC
[2023-07-14] MEDS ORDERED: DEXTROSE 50% 50ML SYRINGE IV PRN ×2 (14:40)
[2023-07-14] MEDS ORDERED: GLUCAGON INJ 1MG VIAL SC PRN ×2 (14:40)
[2023-07-14] MEDS ORDERED: GLUCOSE 4GM CHEW TABLET PO PRN ×2 (14:40)
[2023-07-14 16:30] VITALS: BP 111/59; TEMP 97.7; O2SAT 96
[2023-07-14] MEDS: INSULIN LISPRO (NovoLOG) PER UNIT SC SCH ×2 (17:30→20:36)
[2023-07-14] MEDS ORDERED: CEFEPIME HCL 1 GM in D5W MINI-BAG PLUS 50 ML IV SCH (18:00)
[2023-07-14 20:00] VITALS: BP 128/70; TEMP 97.9; O2SAT 95
[2023-07-14] MEDS: ROSUVASTATIN 10 MG TAB (CRESTOR) PO SCH (20:35)
[2023-07-14] MEDS: DOXYCYCLINE HYCLATE 100MG TABLET PO SCH (20:36)
[2023-07-14] MEDS: MAGNESIUM OXIDE 400MG TAB (MAG-OX) PO SCH (20:36)
[2023-07-14] MEDS: DOCUSATE SODIUM 100MG CAPSULE PO SCH (20:36)
[2023-07-14] MEDS: rOPINIRole 1MG TAB PO SCH (20:36)
[2023-07-14] MEDS: HEPARIN SOD (PORCINE) 5000UNITS/ML 1ML VIAL/SYRINGE SQ SCH (21:31)
[2023-07-15] MEDS ORDERED: guaiFENesin DM LIQ 10ML UD PO PRN (03:35)
[2023-07-15] MEDS: HEPARIN SOD (PORCINE) 5000UNITS/ML 1ML VIAL/SYRINGE SQ SCH ×3 (05:07→20:52)
[2023-07-15 06:00] VITALS: BP 130/75; TEMP 97.9; O2SAT 94
[2023-07-15 07:01] LABS: BASO # 0.1 10^3/uL (0.0-0.2); BASO % 0.6 % (0.0-1.0); EOS # 0.4 10^3/uL (0.0-0.5); EOS % 2.8 % (0.0-3.0); HEMATOCRIT 39.4 % (42.0-52.0); HEMOGLOBIN 12.8 g/dl (13.5-17.5); LYMPH # 2.3 10^3/uL (1.5-5.0); LYMPH % 17.6 % (24.0-44.0); MEAN CORPUSCULAR HEMOGLOBIN 29.9 pg (27.0-33.0); MEAN CORPUSCULAR HGB CONC 32.5 g/dl (32.0-36.5); MEAN CORPUSCULAR VOLUME 92.1 fl (80.0-96.0); MONO # 1.5 10^3/uL (0.0-0.8); MONO % 11.3 % (2.0-8.0); NEUTROPHILS # 8.3 10^3/uL (1.5-8.5); NEUTROPHILS % 63.8 % (36.0-66.0); PLATELET COUNT, AUTOMATED 450 10^3/uL (150-450); RED BLOOD COUNT 4.28 10^6/uL (4.30-6.10); WHITE BLOOD COUNT 12.9 10^3/uL (4.0-10.0)
[2023-07-15] MEDS: INSULIN LISPRO (NovoLOG) PER UNIT SC SCH ×4 (07:30→19:51)
[2023-07-15 07:34] LABS: CALCIUM LEVEL 9.6 MG/DL (8.3-10.6); CREATININE FOR GFR 1.55 MG/DL (0.70-1.30); GLOMERULAR FILTRATION RATE 46.3 (>42); MAGNESIUM LEVEL 2.1 MG/DL (1.8-2.4); POTASSIUM SERUM 4.9 MMOL/L (3.5-5.1)
[2023-07-15] MEDS: MIRALAX *UNIT DOSE* 17GM PACKET PO SCH (08:21)
[2023-07-15] MEDS: OMEPRAZOLE 20MG CAP PO SCH (08:21)
[2023-07-15] MEDS: DOCUSATE SODIUM 100MG CAPSULE PO SCH ×2 (08:21→21:00)
[2023-07-15] MEDS: SITagliptin 50 MG TAB (JANUVIA) PO SCH (08:21)
[2023-07-15] MEDS: VITAMIN D 1,000 INTERNATIONAL UNITS TABLET PO SCH (08:22)
[2023-07-15] MEDS: CYANOCOBALAMIN 500 MCG TAB PO SCH (08:22)
[2023-07-15] MEDS: MAGNESIUM OXIDE 400MG TAB (MAG-OX) PO SCH ×2 (08:22→20:51)
[2023-07-15] MEDS: DOXYCYCLINE HYCLATE 100MG TABLET PO SCH ×2 (08:23→20:51)
[2023-07-15] MEDS: LEVEMIR (INSULIN DETEMIR) 1 UNITS/0.01ML SC SCH (08:24)
[2023-07-15] MEDS: GLATIRAMER ACETATE 40 MG/ML SQ SCH (08:25)
[2023-07-15] MEDS ORDERED: METHOTREXATE 2.5MG TAB PO SCH (09:00)
[2023-07-15] MEDS ORDERED: LEVEMIR (INSULIN DETEMIR) 1 UNITS/0.01ML SC SCH (09:00)
[2023-07-15] MEDS ORDERED: ASPIRIN 81MG ENTERIC TABLET PO SCH (09:00)
[2023-07-15] MEDS ORDERED: ASPIRIN ENTERIC 325MG TAB PO ONE (11:00)
[2023-07-15 14:00] VITALS: BP 118/70; TEMP 98.3; O2SAT 95
[2023-07-15 20:00] VITALS: BP 130/70; TEMP 97.3; O2SAT 98
[2023-07-15] MEDS: rOPINIRole 1MG TAB PO SCH (20:51)
[2023-07-15] MEDS: ROSUVASTATIN 10 MG TAB (CRESTOR) PO SCH (20:51)
[2023-07-16] MEDS: HEPARIN SOD (PORCINE) 5000UNITS/ML 1ML VIAL/SYRINGE SQ SCH ×3 (05:40→21:21)
[2023-07-16 06:00] VITALS: BP 130/77; TEMP 98.3; O2SAT 94
[2023-07-16 08:37] LABS: CALCIUM LEVEL 10.2 MG/DL (8.3-10.6); CHOLESTEROL RISK RATIO 4.63 (<5); CREATININE FOR GFR 1.51 MG/DL (0.70-1.30); GLOMERULAR FILTRATION RATE 47.7 (>42); HDL CHOLESTEROL 33.2 MG/DL (>40); LDL CHOLESTEROL 73.4 MG/DL (<100); MAGNESIUM LEVEL 2.2 MG/DL (1.8-2.4); NON-HDL-C 120.8 MG/DL; POTASSIUM SERUM 4.6 MMOL/L (3.5-5.1)
[2023-07-16] MEDS: OMEPRAZOLE 20MG CAP PO SCH (08:52)
[2023-07-16] MEDS: SITagliptin 50 MG TAB (JANUVIA) PO SCH (08:52)
[2023-07-16] MEDS: MIRALAX *UNIT DOSE* 17GM PACKET PO SCH (08:52)
[2023-07-16] MEDS: VITAMIN D 1,000 INTERNATIONAL UNITS TABLET PO SCH (08:52)
[2023-07-16] MEDS: MAGNESIUM OXIDE 400MG TAB (MAG-OX) PO SCH ×2 (08:52→21:22)
[2023-07-16] MEDS: DOXYCYCLINE HYCLATE 100MG TABLET PO SCH ×2 (08:52→21:22)
[2023-07-16] MEDS: ASPIRIN ENTERIC 325MG TAB PO SCH (08:52)
[2023-07-16] MEDS: DOCUSATE SODIUM 100MG CAPSULE PO SCH (08:52)
[2023-07-16] MEDS: LEVEMIR (INSULIN DETEMIR) 1 UNITS/0.01ML SC SCH (08:53)
[2023-07-16] MEDS: INSULIN LISPRO (NovoLOG) PER UNIT SC SCH ×5 (08:53→21:21)
[2023-07-16] MEDS: CYANOCOBALAMIN 500 MCG TAB PO SCH (08:54)
[2023-07-16] MEDS ORDERED: ASPIRIN 325 MG TAB PO SCH (09:00)
[2023-07-16] MEDS ORDERED: BISACODYL 10MG SUPP PR SCH (09:00)
[2023-07-16] MEDS ORDERED: SENNA 8.6 MG TAB (SENOKOT) PO PRN (10:00)
[2023-07-16] MEDS ORDERED: BISACODYL 10MG SUPP PR PRN (11:50)
[2023-07-16 14:00] VITALS: BP 118/73; TEMP 98; O2SAT 96
[2023-07-16 20:00] VITALS: BP 118/73; TEMP 98; O2SAT 91
[2023-07-16] MEDS: ROSUVASTATIN 10 MG TAB (CRESTOR) PO SCH (21:21)
[2023-07-16] MEDS: rOPINIRole 1MG TAB PO SCH (21:22)
[2023-07-17] MEDS: HEPARIN SOD (PORCINE) 5000UNITS/ML 1ML VIAL/SYRINGE SQ SCH ×3 (05:50→21:30)
[2023-07-17 06:00] VITALS: BP 130/82; TEMP 97.6; O2SAT 94
[2023-07-17 06:09] LABS: HEMATOCRIT 39.4 % (42.0-52.0); HEMOGLOBIN 12.9 g/dl (13.5-17.5); MEAN CORPUSCULAR HEMOGLOBIN 29.9 pg (27.0-33.0); MEAN CORPUSCULAR HGB CONC 32.7 g/dl (32.0-36.5); MEAN CORPUSCULAR VOLUME 91.4 fl (80.0-96.0); PLATELET COUNT, AUTOMATED 394 10^3/uL (150-450); RED BLOOD COUNT 4.31 10^6/uL (4.30-6.10)
[2023-07-17] MEDS: GLATIRAMER ACETATE 40 MG/ML SQ SCH (08:44)
[2023-07-17] MEDS: LEVEMIR (INSULIN DETEMIR) 1 UNITS/0.01ML SC SCH (08:45)
[2023-07-17] MEDS: OMEPRAZOLE 20MG CAP PO SCH (08:46)
[2023-07-17] MEDS: VITAMIN D (CHOLECALCIFEROL) 400 INTERNATIONAL UNITS TAB PO SCH (08:46)
[2023-07-17] MEDS: INSULIN LISPRO (NovoLOG) PER UNIT SC SCH ×4 (08:46→21:00)
[2023-07-17] MEDS: ASPIRIN ENTERIC 325MG TAB PO SCH (08:46)
[2023-07-17] MEDS: MIRALAX *UNIT DOSE* 17GM PACKET PO SCH (08:47)
[2023-07-17] MEDS: MAGNESIUM OXIDE 400MG TAB (MAG-OX) PO SCH ×2 (08:47→21:31)
[2023-07-17] MEDS: SITagliptin 50 MG TAB (JANUVIA) PO SCH (08:47)
[2023-07-17 13:54] LABS: C REACTIVE PROTEIN QUANTITATIV 4.5 MG/DL (<1.0)
[2023-07-17 14:00] VITALS: BP 119/77; TEMP 97.4; O2SAT 96
[2023-07-17 14:08] LABS: PROCALCITONIN 0.16 ng/ml
[2023-07-17] MEDS ORDERED: FUROSEMIDE 20MG/2ML VIAL IV ONE (17:00)
[2023-07-17] MEDS ORDERED: FLUZONE HIGH DOSE(65YR UP)QUAD/PF 240MCG/0.7ML SYRINGE IM.IMMUN ONE (18:00)
[2023-07-17 19:42] VITALS: BP 117/69; TEMP 97.4; O2SAT 95
[2023-07-17] MEDS: rOPINIRole 1MG TAB PO SCH (21:31)
[2023-07-17] MEDS: ROSUVASTATIN 10 MG TAB (CRESTOR) PO SCH (21:31)
[2023-07-18 05:25] VITALS: BP 117/70; TEMP 98.1; O2SAT 94
[2023-07-18] MEDS: HEPARIN SOD (PORCINE) 5000UNITS/ML 1ML VIAL/SYRINGE SQ SCH ×3 (05:27→21:11)
[2023-07-18] MEDS: LEVEMIR (INSULIN DETEMIR) 1 UNITS/0.01ML SC SCH (08:20)
[2023-07-18] MEDS: MAGNESIUM OXIDE 400MG TAB (MAG-OX) PO SCH ×2 (08:21→21:11)
[2023-07-18] MEDS: ASPIRIN ENTERIC 325MG TAB PO SCH (08:21)
[2023-07-18] MEDS: SITagliptin 50 MG TAB (JANUVIA) PO SCH (08:21)
[2023-07-18] MEDS: OMEPRAZOLE 20MG CAP PO SCH (08:21)
[2023-07-18] MEDS: MIRALAX *UNIT DOSE* 17GM PACKET PO SCH (08:21)
[2023-07-18] MEDS: INSULIN LISPRO (NovoLOG) PER UNIT SC SCH ×4 (08:21→20:16)
[2023-07-18] MEDS: VITAMIN D (CHOLECALCIFEROL) 400 INTERNATIONAL UNITS TAB PO SCH (08:21)
[2023-07-18 14:00] VITALS: BP 148/80; TEMP 97.9; O2SAT 95
[2023-07-18 19:29] VITALS: BP 129/69; TEMP 97.9; O2SAT 94
[2023-07-18] MEDS: ROSUVASTATIN 10 MG TAB (CRESTOR) PO SCH (21:11)
[2023-07-18] MEDS: rOPINIRole 1MG TAB PO SCH (21:11)
[2023-07-18 21:21] VITALS: BP 122/66; TEMP 99; O2SAT 93
[2023-07-19 05:25] VITALS: BP 118/72; TEMP 97.6; O2SAT 95
[2023-07-19] MEDS: HEPARIN SOD (PORCINE) 5000UNITS/ML 1ML VIAL/SYRINGE SQ SCH ×3 (05:31→21:02)
[2023-07-19] MEDS: INSULIN LISPRO (NovoLOG) PER UNIT SC SCH ×4 (07:13→19:45)
[2023-07-19] MEDS: VITAMIN D (CHOLECALCIFEROL) 400 INTERNATIONAL UNITS TAB PO SCH (07:13)
[2023-07-19] MEDS: MIRALAX *UNIT DOSE* 17GM PACKET PO SCH (07:13)
[2023-07-19] MEDS: OMEPRAZOLE 20MG CAP PO SCH (07:14)
[2023-07-19] MEDS: SITagliptin 50 MG TAB (JANUVIA) PO SCH (07:14)
[2023-07-19] MEDS: ASPIRIN ENTERIC 325MG TAB PO SCH (07:14)
[2023-07-19] MEDS: MAGNESIUM OXIDE 400MG TAB (MAG-OX) PO SCH ×2 (07:14→21:01)
[2023-07-19] MEDS: LEVEMIR (INSULIN DETEMIR) 1 UNITS/0.01ML SC SCH (07:14)
[2023-07-19 14:00] VITALS: BP 139/73; TEMP 98.3; O2SAT 94
[2023-07-19 20:00] VITALS: BP 117/73; TEMP 98; O2SAT 94
[2023-07-19] MEDS: rOPINIRole 1MG TAB PO SCH (21:01)
[2023-07-19] MEDS: ROSUVASTATIN 10 MG TAB (CRESTOR) PO SCH (21:01)
[2023-07-19] MEDS: ACETAMINOPHEN TAB 650MG DOSE (2X325MG) PO PRN (22:35)
[2023-07-19] MEDS ORDERED: CALCIUM CARBONATE 500 MG CHEW U/D PO ONE (23:00)
[2023-07-20 00:10] VITALS: BP 120/77; TEMP 98.2; O2SAT 97
[2023-07-20] MEDS ORDERED: ONDANSETRON 4MG ORAL DISINTEGRATING TAB PO ONE (01:00)
[2023-07-20] MEDS: HEPARIN SOD (PORCINE) 5000UNITS/ML 1ML VIAL/SYRINGE SQ SCH ×3 (05:40→20:11)
[2023-07-20 06:00] VITALS: BP 106/69; TEMP 97; O2SAT 95
[2023-07-20] MEDS: INSULIN LISPRO (NovoLOG) PER UNIT SC SCH ×4 (07:30→21:00)
[2023-07-20 08:08] LABS: HEMATOCRIT 44.5 % (42.0-52.0); MEAN CORPUSCULAR HEMOGLOBIN 29.7 pg (27.0-33.0); MEAN CORPUSCULAR HGB CONC 31.5 g/dl (32.0-36.5); MEAN CORPUSCULAR VOLUME 94.5 fl (80.0-96.0); PLATELET COUNT, AUTOMATED 296 10^3/uL (150-450); RED BLOOD COUNT 4.71 10^6/uL (4.30-6.10); WHITE BLOOD COUNT 22.6 10^3/uL (4.0-10.0)
[2023-07-20] MEDS: GLATIRAMER ACETATE 40 MG/ML SQ SCH (09:00)
[2023-07-20] MEDS: MIRALAX *UNIT DOSE* 17GM PACKET PO SCH (09:00)
[2023-07-20 09:03] LABS: BASO # 0.1 10^3/uL (0.0-0.2); BASO % 0.3 % (0.0-1.0); EOS # 0.1 10^3/uL (0.0-0.5); EOS % 0.5 % (0.0-3.0); LYMPH # 1.7 10^3/uL (1.5-5.0); LYMPH % 7.7 % (24.0-44.0); MONO % 9.1 % (2.0-8.0); NEUTROPHILS # 18.1 10^3/uL (1.5-8.5); NEUTROPHILS % 81.4 % (36.0-66.0)
[2023-07-20] MEDS: ONDANSETRON 4MG ORAL DISINTEGRATING TAB SL PRN (09:16)
[2023-07-20 09:19] LABS: CALCIUM LEVEL 10.2 MG/DL (8.3-10.6); CREATININE FOR GFR 1.43 MG/DL (0.70-1.30); GLOMERULAR FILTRATION RATE 50.8 (>42); POTASSIUM SERUM 5.1 MMOL/L (3.5-5.1)
[2023-07-20 10:03] LABS: RSV AMPLIFICATION NEGATIVE (NEGATIVE)
[2023-07-20] MEDS: OMEPRAZOLE 20MG CAP PO SCH (10:17)
[2023-07-20] MEDS: MAGNESIUM OXIDE 400MG TAB (MAG-OX) PO SCH ×2 (10:17→20:10)
[2023-07-20] MEDS: LEVEMIR (INSULIN DETEMIR) 1 UNITS/0.01ML SC SCH (10:17)
[2023-07-20] MEDS: VITAMIN D (CHOLECALCIFEROL) 400 INTERNATIONAL UNITS TAB PO SCH (10:18)
[2023-07-20] MEDS: SITagliptin 50 MG TAB (JANUVIA) PO SCH (10:18)
[2023-07-20] MEDS: ASPIRIN ENTERIC 325MG TAB PO SCH (10:18)
[2023-07-20 11:10] LABS: C REACTIVE PROTEIN QUANTITATIV 6.2 MG/DL (<1.0)
[2023-07-20 11:11] LABS: ALBUMIN 2.8 G/DL (3.2-5.2); BILIRUBIN,DIRECT 0.2 MG/DL (<0.4); BILIRUBIN,TOTAL 0.4 MG/DL (0.3-1.2); TOTAL PROTEIN 6.9 G/DL (5.7-8.2)
[2023-07-20 11:23] LABS: PROCALCITONIN 0.13 ng/ml
[2023-07-20 13:37] LABS: CALCIUM LEVEL 9.5 MG/DL (8.3-10.6); CREATININE FOR GFR 1.44 MG/DL (0.70-1.30); GLOMERULAR FILTRATION RATE 50.4 (>42); POTASSIUM SERUM 4.8 MMOL/L (3.5-5.1)
[2023-07-20 14:00] VITALS: BP 112/73; TEMP 99.6; O2SAT 95
[2023-07-20] MEDS: PIPERACILLIN/TAZOBACTAM SOD 3.375 GM in D5W MINI-BAG PLUS 50 ML IV SCH (19:14)
[2023-07-20 20:00] VITALS: BP 131/73; TEMP 100.4; O2SAT 96
[2023-07-20] MEDS: ROSUVASTATIN 10 MG TAB (CRESTOR) PO SCH (20:10)
[2023-07-20] MEDS: rOPINIRole 1MG TAB PO SCH (20:10)
[2023-07-20] MEDS: ACETAMINOPHEN TAB 650MG DOSE (2X325MG) PO PRN (20:10)
[2023-07-21] MEDS: PIPERACILLIN/TAZOBACTAM SOD 3.375 GM in D5W MINI-BAG PLUS 50 ML IV SCH ×3 (00:25→12:14)
[2023-07-21 05:28] VITALS: BP 118/66; TEMP 98.8; O2SAT 91
[2023-07-21] MEDS: HEPARIN SOD (PORCINE) 5000UNITS/ML 1ML VIAL/SYRINGE SQ SCH ×2 (05:57→14:22)
[2023-07-21] MEDS: ACETAMINOPHEN TAB 650MG DOSE (2X325MG) PO PRN (06:58)
[2023-07-21] MEDS: ONDANSETRON 4MG ORAL DISINTEGRATING TAB SL PRN (06:58)
[2023-07-21 07:18] LABS: BASO # 0.1 10^3/uL (0.0-0.2); BASO % 0.2 % (0.0-1.0); HEMATOCRIT 41.9 % (42.0-52.0); HEMOGLOBIN 13.5 g/dl (13.5-17.5); LYMPH # 1.3 10^3/uL (1.5-5.0); LYMPH % 3.5 % (24.0-44.0); MEAN CORPUSCULAR HEMOGLOBIN 29.9 pg (27.0-33.0); MEAN CORPUSCULAR HGB CONC 32.2 g/dl (32.0-36.5); MEAN CORPUSCULAR VOLUME 92.7 fl (80.0-96.0); MONO % 8.8 % (2.0-8.0); NEUTROPHILS # 32.9 10^3/uL (1.5-8.5); NEUTROPHILS % 86.2 % (36.0-66.0); PLATELET COUNT, AUTOMATED 273 10^3/uL (150-450); RED BLOOD COUNT 4.52 10^6/uL (4.30-6.10)
[2023-07-21] MEDS: INSULIN LISPRO (NovoLOG) PER UNIT SC SCH ×3 (07:30→17:22)
[2023-07-21 07:49] LABS: BILIRUBIN,TOTAL 0.9 MG/DL (0.3-1.2); CALCIUM LEVEL 9.6 MG/DL (8.3-10.6); CREATININE FOR GFR 1.6 MG/DL (0.70-1.30); GLOMERULAR FILTRATION RATE 44.6 (>42); POTASSIUM SERUM 4.8 MMOL/L (3.5-5.1); TOTAL PROTEIN 6.1 G/DL (5.7-8.2)
[2023-07-21 07:52] LABS: MONO # 3.4 10^3/uL (0.0-0.8); WHITE BLOOD COUNT 38.1 10^3/uL (4.0-10.0)
[2023-07-21] MEDS: ASPIRIN ENTERIC 325MG TAB PO SCH (08:49)
[2023-07-21] MEDS: OMEPRAZOLE 20MG CAP PO SCH (08:49)
[2023-07-21] MEDS: MAGNESIUM OXIDE 400MG TAB (MAG-OX) PO SCH (08:49)
[2023-07-21] MEDS: MIRALAX *UNIT DOSE* 17GM PACKET PO SCH (08:49)
[2023-07-21] MEDS: VITAMIN D (CHOLECALCIFEROL) 400 INTERNATIONAL UNITS TAB PO SCH (08:49)
[2023-07-21] MEDS: SITagliptin 50 MG TAB (JANUVIA) PO SCH (08:49)
[2023-07-21] MEDS: LEVEMIR (INSULIN DETEMIR) 1 UNITS/0.01ML SC SCH (08:50)
[2023-07-21 08:52] VITALS: BP 111/66; TEMP 98.4; O2SAT 94
[2023-07-21] MEDS ORDERED: LACTOBACILLUS ACIDOPHILUS CAP (BACID) PO SCH (09:00)
[2023-07-21 15:19] LABS: ALBUMIN 2.3 G/DL (3.2-5.2)
[2023-07-21] MEDS ORDERED: ASPI32ECTA PO (16:45)
[2023-07-21] MEDS ORDERED: MEROPENEM INJ 2 GM in NS 100 ML IV SCH (17:00)
[2023-07-21] MEDS ORDERED: MEROPENEM INJ 1 GM in IV 1 EA IV SCH (18:00)
[2023-07-21 18:04] VITALS: BP 117/67; TEMP 101.9; O2SAT 94
[2023-07-22] MEDS ORDERED: MEROPENEM INJ 1 GM in NS 100 ML IV SCH (01:00)
== END 2023-07-21 17:45 | disposition short-term general hospital (02) | DRG 59 ==
LOC: M PM&R 14:36
PROVIDERS: ADMIT Student in an Organized Health Care Education/Training Program; ATTEND Student in an Organized Health Care Education/Training Program
DX: G35 Multiple sclerosis (principal); D84.821 Immunodeficiency due to drugs; I13.0 Hypertensive heart and chronic kidney disease with heart failure and stage 1 through stage 4 chronic kidney disease, or unspecified chronic kidney disease; K59.2 Neurogenic bowel, not elsewhere classified; J84.9 Interstitial pulmonary disease, unspecified; G45.9 Transient cerebral ischemic attack, unspecified; K81.0 Acute cholecystitis; Z74.09 Other reduced mobility; N31.9 Neuromuscular dysfunction of bladder, unspecified; K59.09 Other constipation; I25.10 Atherosclerotic heart disease of native coronary artery without angina pectoris; R29.6 Repeated falls; E11.22 Type 2 diabetes mellitus with diabetic chronic kidney disease; E78.5 Hyperlipidemia, unspecified; R47.81 Slurred speech; I27.20 Pulmonary hypertension, unspecified; R53.81 Other malaise; N18.31 Chronic kidney disease, stage 3a; G25.81 Restless legs syndrome; M47.812 Spondylosis without myelopathy or radiculopathy, cervical region; M47.816 Spondylosis without myelopathy or radiculopathy, lumbar region; E53.8 Deficiency of other specified B group vitamins; E11.65 Type 2 diabetes mellitus with hyperglycemia; K21.9 Gastro-esophageal reflux disease without esophagitis; F32.A Depression, unspecified; N40.0 Benign prostatic hyperplasia without lower urinary tract symptoms; E11.40 Type 2 diabetes mellitus with diabetic neuropathy, unspecified; D50.9 Iron deficiency anemia, unspecified; D63.1 Anemia in chronic kidney disease; E29.1 Testicular hypofunction; E55.9 Vitamin D deficiency, unspecified; H91.93 Unspecified hearing loss, bilateral; M17.0 Bilateral primary osteoarthritis of knee; Z99.3 Dependence on wheelchair; Z99.81 Dependence on supplemental oxygen; Z74.1 Need for assistance with personal care; Z79.82 Long term (current) use of aspirin; Z79.4 Long term (current) use of insulin; Z79.899 Other long term (current) drug therapy; Z88.8 Allergy status to other drugs, medicaments and biological substances

== ENCOUNTER 2023-07-21 17:05 | Inpatient (IN) | payer MEDICARE, OTHER ==
[~2023-07-21] VITALS: Ht 162.6 cm; Wt 69.5 kg
[~2023-07-21 17:05] MED LIST changes: +ASPI32ECTA PO
[2023-07-21] MEDS ORDERED: GLUCAGON INJ 1MG VIAL SC PRN (17:25)
[2023-07-21] MEDS ORDERED: GLUCOSE 4GM CHEW TABLET PO PRN (17:25)
[2023-07-21] MEDS ORDERED: DEXTROSE 50% 50ML SYRINGE IV PRN (17:25)
[2023-07-21] MEDS ORDERED: NS 1,000 ML IV ONE (17:55)
[2023-07-21] MEDS: INSULIN LISPRO (NovoLOG) PER UNIT SC SCH (18:00)
[2023-07-21 19:11] VITALS: BP 120/71; TEMP 100; O2SAT 94
[2023-07-21] MEDS: NS 1,000 ML IV SCH (20:41)
[2023-07-21] MEDS: HEPARIN SOD (PORCINE) 5000UNITS/ML 1ML VIAL/SYRINGE SC SCH (20:43)
[2023-07-21 23:46] VITALS: BP 106/61; TEMP 99.2; O2SAT 92
[2023-07-22] VITALS (7 sets, daily range): BP systolic 104–113; BP diastolic 55–68; TEMP 97.8–103; O2SAT 90–95
[2023-07-22 04:14] LABS: HEMATOCRIT 38.1 % (42.0-52.0); HEMOGLOBIN 12.2 g/dl (13.5-17.5); MEAN CORPUSCULAR HEMOGLOBIN 29.6 pg (27.0-33.0); MEAN CORPUSCULAR VOLUME 92.5 fl (80.0-96.0); PLATELET COUNT, AUTOMATED 241 10^3/uL (150-450); RED BLOOD COUNT 4.12 10^6/uL (4.30-6.10)
[2023-07-22 04:17] LABS: WHITE BLOOD COUNT 38.4 10^3/uL (4.0-10.0)
[2023-07-22 04:58] LABS: ALBUMIN 1.9 G/DL (3.2-5.2); BILIRUBIN,TOTAL 1.4 MG/DL (0.3-1.2); CREATININE FOR GFR 1.91 MG/DL (0.70-1.30); GLOMERULAR FILTRATION RATE 36.4 (>42); MAGNESIUM LEVEL 2.1 MG/DL (1.8-2.4); POTASSIUM SERUM 4.2 MMOL/L (3.5-5.1); TOTAL PROTEIN 5.6 G/DL (5.7-8.2)
[2023-07-22] MEDS: INSULIN LISPRO (NovoLOG) PER UNIT SC SCH ×4 (05:47→17:27)
[2023-07-22] MEDS: MEROPENEM INJ 1 GM in IV 1 EA IV SCH ×2 (05:47→17:22)
[2023-07-22] MEDS: ACETAMINOPHEN TAB 650MG DOSE (2X325MG) PO PRN ×2 (06:24→18:36)
[2023-07-22 07:03] LABS: BASO # 0.1 10^3/uL (0.0-0.2); BASO % 0.2 % (0.0-1.0); EOS % 0.1 % (0.0-3.0); HEMATOCRIT 38.6 % (42.0-52.0); HEMOGLOBIN 12.6 g/dl (13.5-17.5); LYMPH # 1.7 10^3/uL (1.5-5.0); LYMPH % 4.4 % (24.0-44.0); MEAN CORPUSCULAR HEMOGLOBIN 30.7 pg (27.0-33.0); MEAN CORPUSCULAR HGB CONC 32.6 g/dl (32.0-36.5); MEAN CORPUSCULAR VOLUME 94.1 fl (80.0-96.0); MONO % 7.9 % (2.0-8.0); NEUTROPHILS % 86.2 % (36.0-66.0); PLATELET COUNT, AUTOMATED 218 10^3/uL (150-450)
[2023-07-22 07:21] LABS: WHITE BLOOD COUNT 38.3 10^3/uL (4.0-10.0)
[2023-07-22 07:28] LABS: CREATININE FOR GFR 1.88 MG/DL (0.70-1.30); MAGNESIUM LEVEL 2.1 MG/DL (1.8-2.4); POTASSIUM SERUM 4.4 MMOL/L (3.5-5.1)
[2023-07-22] MEDS: HEPARIN SOD (PORCINE) 5000UNITS/ML 1ML VIAL/SYRINGE SC SCH (09:00)
[2023-07-22] MEDS: NS 1,000 ML IV SCH ×2 (12:13→18:37)
[2023-07-22] MEDS: PANTOPRAZOLE 40MG VIAL IV SCH (12:13)
[2023-07-22] MEDS: GLATIRAMER ACETATE SC SCH (12:18)
[2023-07-22] MEDS ORDERED: NS 1,000 ML IV ONE ×2 (15:00→17:00)
[2023-07-22] MEDS ORDERED: INDOCYANINE GREEN 25MG VIAL (IC-GREEN) As Ordered ONE (19:25)
[2023-07-22] MEDS ORDERED: LIDOCAINE 1% SDV 30ML VIAL As Ordered ONE (19:25)
[2023-07-22 19:40] LABS: ALBUMIN 1.6 G/DL (3.2-5.2); BILIRUBIN,DIRECT 2.2 MG/DL (<0.4); BILIRUBIN,TOTAL 2.5 MG/DL (0.3-1.2); TOTAL PROTEIN 5.1 G/DL (5.7-8.2)
[2023-07-22] MEDS ORDERED: fentaNYL 100 MCG/2 ML INJECTION As Ordered ONE ×2 (20:36→23:36)
[2023-07-22] MEDS ORDERED: propofoL 200 MG/20 ML VIAL As Ordered ONE (20:36)
[2023-07-22] MEDS ORDERED: LIDOCAINE 2% 100MG/5ML SDV (FOR ANES.) As Ordered ONE (20:37)
[2023-07-22] MEDS ORDERED: ROCURONIUM BROMIDE 50MG/5ML VIAL As Ordered ONE (20:37)
[2023-07-22] MEDS ORDERED: ONDANSETRON 4MG 2ML VIAL As Ordered ONE (20:37)
[2023-07-22] MEDS ORDERED: ACETAMINOPHEN 650MG SUPP PR ONE (20:45)
[2023-07-22] MEDS ORDERED: ETOMIDATE INJ 20MG/10ML VIAL As Ordered ONE (20:47)
[2023-07-22] MEDS ORDERED: SUGAMMADEX SODIUM 500 MG/5 ML VIAL (BRIDION) As Ordered ONE (22:46)
[2023-07-22] MEDS ORDERED: ACETAMINOPHEN 1000MG 100ML IV BAG As Ordered ONE (22:58)
[2023-07-23] VITALS (10 sets, daily range): BP systolic 96–124; BP diastolic 52–61; TEMP 97.5–98.6; O2SAT 94–98
[2023-07-23] MEDS: INSULIN LISPRO (NovoLOG) PER UNIT SC SCH ×5 (06:00→20:39)
[2023-07-23] MEDS: NS 1,000 ML IV SCH ×2 (06:09→14:28)
[2023-07-23] MEDS: MEROPENEM INJ 1 GM in IV 1 EA IV SCH ×2 (06:09→17:54)
[2023-07-23 06:25] LABS: BASO # 0.1 10^3/uL (0.0-0.2); BASO % 0.2 % (0.0-1.0); HEMATOCRIT 33.3 % (42.0-52.0); HEMOGLOBIN 10.5 g/dl (13.5-17.5); LYMPH # 1.6 10^3/uL (1.5-5.0); LYMPH % 5.8 % (24.0-44.0); MEAN CORPUSCULAR HEMOGLOBIN 30.3 pg (27.0-33.0); MEAN CORPUSCULAR HGB CONC 31.5 g/dl (32.0-36.5); MEAN CORPUSCULAR VOLUME 96.2 fl (80.0-96.0); MONO % 7.6 % (2.0-8.0); NEUTROPHILS % 85.2 % (36.0-66.0); PLATELET COUNT, AUTOMATED 213 10^3/uL (150-450); RED BLOOD COUNT 3.46 10^6/uL (4.30-6.10); WHITE BLOOD COUNT 28.1 10^3/uL (4.0-10.0)
[2023-07-23 06:47] LABS: CALCIUM LEVEL 8.2 MG/DL (8.3-10.6); CREATININE FOR GFR 2.12 MG/DL (0.70-1.30); GLOMERULAR FILTRATION RATE 32.2 (>42); POTASSIUM SERUM 4.3 MMOL/L (3.5-5.1)
[2023-07-23 07:26] LABS: MONO # 2.1 10^3/uL (0.0-0.8)
[2023-07-23 08:21] LABS: ALBUMIN 1.4 G/DL (3.2-5.2); BILIRUBIN,DIRECT 2.6 MG/DL (<0.4); BILIRUBIN,TOTAL 2.9 MG/DL (0.3-1.2); TOTAL PROTEIN 4.7 G/DL (5.7-8.2)
[2023-07-23] MEDS: PANTOPRAZOLE 40MG VIAL IV SCH (09:32)
[2023-07-23] MEDS: ACETAMINOPHEN TAB 650MG DOSE (2X325MG) PO PRN (23:27)
[2023-07-24] VITALS (30 sets, daily range): BP systolic 109–127; BP diastolic 60–68; TEMP 97.6–101.5; O2SAT 60–100
[2023-07-24] MEDS: NS 1,000 ML IV SCH (04:14)
[2023-07-24 05:25] LABS: BASO % 0.2 % (0.0-1.0); EOS # 0.1 10^3/uL (0.0-0.5); EOS % 0.4 % (0.0-3.0); HEMATOCRIT 30.1 % (42.0-52.0); HEMOGLOBIN 9.5 g/dl (13.5-17.5); LYMPH # 1.5 10^3/uL (1.5-5.0); LYMPH % 9.2 % (24.0-44.0); MEAN CORPUSCULAR HGB CONC 31.6 g/dl (32.0-36.5); MONO # 1.2 10^3/uL (0.0-0.8); MONO % 7.5 % (2.0-8.0); NEUTROPHILS # 13.3 10^3/uL (1.5-8.5); NEUTROPHILS % 82.1 % (36.0-66.0); PLATELET COUNT, AUTOMATED 202 10^3/uL (150-450); RED BLOOD COUNT 3.17 10^6/uL (4.30-6.10); WHITE BLOOD COUNT 16.2 10^3/uL (4.0-10.0)
[2023-07-24] MEDS: MEROPENEM INJ 1 GM in IV 1 EA IV SCH ×2 (05:43→17:40)
[2023-07-24 06:00] LABS: ALBUMIN 1.4 G/DL (3.2-5.2); BILIRUBIN,TOTAL 1.1 MG/DL (0.3-1.2); CALCIUM LEVEL 7.8 MG/DL (8.3-10.6); CREATININE FOR GFR 2.26 MG/DL (0.70-1.30); GLOMERULAR FILTRATION RATE 29.9 (>42); MAGNESIUM LEVEL 1.9 MG/DL (1.8-2.4); POTASSIUM SERUM 4.1 MMOL/L (3.5-5.1); TOTAL PROTEIN 4.4 G/DL (5.7-8.2)
[2023-07-24] MEDS: INSULIN LISPRO (NovoLOG) PER UNIT SC SCH ×4 (08:47→20:57)
[2023-07-24] MEDS: PANTOPRAZOLE 40MG VIAL IV SCH (08:47)
[2023-07-24] MEDS: GLATIRAMER ACETATE SC SCH (08:48)
[2023-07-24] MEDS ORDERED: BISACODYL 10MG SUPP PR SCH (09:00)
[2023-07-24] MEDS: MORPHINE 2 MG/ML 1ML VIAL IV PRN ×2 (09:06→17:40)
[2023-07-24 11:45] LABS: ABG BASE EXCESS -2.2 (-2.0-2.0); ABG HCO3 22.3 MMOL/L (22.0-26.0); ABG O2 SATURATION 98.8 % (95.0-99.0); ABG PARTIAL PRESSURE CO2 37.5 mmHg (35.0-45.0); ABG PARTIAL PRESSURE O2 158.6 mmHg (75.0-100.0); ABG STANDARD HCO3 22.6 MMOL/L. (22.0-26.0); ABG TOTAL CO2 23.5 MMOL/L (23.0-31.0); ABG pH (ARTERIAL) 7.393 UNITS (7.350-7.450)
[2023-07-24] MEDS: HEPARIN SOD (PORCINE) 5000UNITS/ML 1ML VIAL/SYRINGE SC SCH ×2 (12:43→21:04)
[2023-07-24] MEDS ORDERED: FUROSEMIDE 40MG/4ML VIAL IV ONE (18:30)
[2023-07-25] VITALS (32 sets, daily range): BP systolic 104–119; BP diastolic 57–70; TEMP 97.6–98.6; O2SAT 90–99
[2023-07-25] MEDS: MEROPENEM INJ 1 GM in IV 1 EA IV SCH ×2 (05:55→18:24)
[2023-07-25 06:44] LABS: BASO % 0.3 % (0.0-1.0); EOS # 0.2 10^3/uL (0.0-0.5); EOS % 1.6 % (0.0-3.0); HEMATOCRIT 28.8 % (42.0-52.0); HEMOGLOBIN 9.5 g/dl (13.5-17.5); LYMPH # 1.6 10^3/uL (1.5-5.0); LYMPH % 13.4 % (24.0-44.0); MEAN CORPUSCULAR HEMOGLOBIN 30.6 pg (27.0-33.0); MEAN CORPUSCULAR VOLUME 92.9 fl (80.0-96.0); MONO # 0.9 10^3/uL (0.0-0.8); MONO % 7.6 % (2.0-8.0); NEUTROPHILS # 8.9 10^3/uL (1.5-8.5); NEUTROPHILS % 76.5 % (36.0-66.0); PLATELET COUNT, AUTOMATED 218 10^3/uL (150-450); WHITE BLOOD COUNT 11.6 10^3/uL (4.0-10.0)
[2023-07-25 07:18] LABS: ALBUMIN 1.4 G/DL (3.2-5.2); BILIRUBIN,TOTAL 0.6 MG/DL (0.3-1.2); CALCIUM LEVEL 8.4 MG/DL (8.3-10.6); CREATININE FOR GFR 2.11 MG/DL (0.70-1.30); GLOMERULAR FILTRATION RATE 32.4 (>42); MAGNESIUM LEVEL 1.7 MG/DL (1.8-2.4); TOTAL PROTEIN 4.6 G/DL (5.7-8.2)
[2023-07-25] MEDS: PANTOPRAZOLE 40MG VIAL IV SCH (08:45)
[2023-07-25] MEDS: FUROSEMIDE 40MG/4ML VIAL IV SCH (08:46)
[2023-07-25] MEDS: INSULIN LISPRO (NovoLOG) PER UNIT SC SCH ×4 (08:46→20:35)
[2023-07-25] MEDS: HEPARIN SOD (PORCINE) 5000UNITS/ML 1ML VIAL/SYRINGE SC SCH ×2 (08:46→22:14)
[2023-07-26] VITALS (27 sets, daily range): BP systolic 106–126; BP diastolic 62–79; TEMP 96.4–97.6; O2SAT 91–97
[2023-07-26] MEDS: MEROPENEM INJ 1 GM in IV 1 EA IV SCH (06:14)
[2023-07-26 07:36] LABS: BASO % 0.3 % (0.0-1.0); EOS # 0.3 10^3/uL (0.0-0.5); EOS % 2.6 % (0.0-3.0); HEMATOCRIT 30.5 % (42.0-52.0); HEMOGLOBIN 9.8 g/dl (13.5-17.5); LYMPH # 1.9 10^3/uL (1.5-5.0); MEAN CORPUSCULAR HEMOGLOBIN 29.7 pg (27.0-33.0); MEAN CORPUSCULAR HGB CONC 32.1 g/dl (32.0-36.5); MEAN CORPUSCULAR VOLUME 92.4 fl (80.0-96.0); MONO # 0.7 10^3/uL (0.0-0.8); MONO % 6.8 % (2.0-8.0); NEUTROPHILS # 7.5 10^3/uL (1.5-8.5); NEUTROPHILS % 71.7 % (36.0-66.0); PLATELET COUNT, AUTOMATED 255 10^3/uL (150-450); WHITE BLOOD COUNT 10.4 10^3/uL (4.0-10.0)
[2023-07-26 08:10] LABS: CALCIUM LEVEL 8.4 MG/DL (8.3-10.6); CREATININE FOR GFR 1.9 MG/DL (0.70-1.30); GLOMERULAR FILTRATION RATE 36.6 (>42); MAGNESIUM LEVEL 1.7 MG/DL (1.8-2.4); POTASSIUM SERUM 4.1 MMOL/L (3.5-5.1)
[2023-07-26 08:13] LABS: ALBUMIN 1.6 G/DL (3.2-5.2); BILIRUBIN,TOTAL 0.6 MG/DL (0.3-1.2); CALCIUM LEVEL 8.4 MG/DL (8.3-10.6); CREATININE FOR GFR 1.92 MG/DL (0.70-1.30); GLOMERULAR FILTRATION RATE 36.1 (>42); POTASSIUM SERUM 3.9 MMOL/L (3.5-5.1)
[2023-07-26] MEDS: PANTOPRAZOLE 40MG VIAL IV SCH (08:17)
[2023-07-26] MEDS: FUROSEMIDE 40MG/4ML VIAL IV SCH (08:18)
[2023-07-26] MEDS: INSULIN LISPRO (NovoLOG) PER UNIT SC SCH ×4 (08:18→20:01)
[2023-07-26] MEDS: HEPARIN SOD (PORCINE) 5000UNITS/ML 1ML VIAL/SYRINGE SC SCH ×2 (08:19→20:22)
[2023-07-27] VITALS (19 sets, daily range): BP systolic 99–123; BP diastolic 61–66; TEMP 96.6–97.6; O2SAT 91–98
[2023-07-27 06:24] LABS: BASO % 0.3 % (0.0-1.0); EOS # 0.4 10^3/uL (0.0-0.5); EOS % 3.7 % (0.0-3.0); HEMATOCRIT 32.8 % (42.0-52.0); HEMOGLOBIN 10.6 g/dl (13.5-17.5); LYMPH # 2.2 10^3/uL (1.5-5.0); LYMPH % 19.2 % (24.0-44.0); MEAN CORPUSCULAR HEMOGLOBIN 29.9 pg (27.0-33.0); MEAN CORPUSCULAR HGB CONC 32.3 g/dl (32.0-36.5); MEAN CORPUSCULAR VOLUME 92.4 fl (80.0-96.0); MONO # 0.9 10^3/uL (0.0-0.8); MONO % 7.8 % (2.0-8.0); NEUTROPHILS # 7.7 10^3/uL (1.5-8.5); NEUTROPHILS % 68.1 % (36.0-66.0); PLATELET COUNT, AUTOMATED 299 10^3/uL (150-450); RED BLOOD COUNT 3.55 10^6/uL (4.30-6.10); WHITE BLOOD COUNT 11.2 10^3/uL (4.0-10.0)
[2023-07-27 06:59] LABS: ALBUMIN 1.7 G/DL (3.2-5.2); BILIRUBIN,TOTAL 0.6 MG/DL (0.3-1.2); CALCIUM LEVEL 8.6 MG/DL (8.3-10.6); CREATININE FOR GFR 1.88 MG/DL (0.70-1.30); MAGNESIUM LEVEL 1.7 MG/DL (1.8-2.4); POTASSIUM SERUM 4.2 MMOL/L (3.5-5.1); TOTAL PROTEIN 5.6 G/DL (5.7-8.2)
[2023-07-27] MEDS: INSULIN LISPRO (NovoLOG) PER UNIT SC SCH ×2 (08:57→12:54)
[2023-07-27] MEDS: FUROSEMIDE 40MG/4ML VIAL IV SCH (09:11)
[2023-07-27] MEDS: HEPARIN SOD (PORCINE) 5000UNITS/ML 1ML VIAL/SYRINGE SC SCH (09:11)
[2023-07-27] MEDS: PANTOPRAZOLE 40MG VIAL IV SCH (09:11)
[2023-07-27] MEDS: GLATIRAMER ACETATE SC SCH (09:12)
== END 2023-07-27 14:15 | DRG 853 ==
LOC: M PCU 17:55
PROVIDERS: ADMIT Student in an Organized Health Care Education/Training Program; ATTEND Student in an Organized Health Care Education/Training Program
PROC: 8E0W4CZ Robotic Assisted Procedure of Trunk Region, Percutaneous Endoscopic Approach (ICD-10-PCS; 2023-07-22)
PROC: BF52200 Other Imaging of Gallbladder using Fluorescing Agent, Indocyanine Green Dye, Intraoperative (ICD-10-PCS; 2023-07-22)
PROC: 0FT44ZZ Resection of Gallbladder, Percutaneous Endoscopic Approach (ICD-10-PCS; principal; 2023-07-22 20:30)
DX: A41.9 Sepsis, unspecified organism (principal); J96.21 Acute and chronic respiratory failure with hypoxia; J69.0 Pneumonitis due to inhalation of food and vomit; N17.0 Acute kidney failure with tubular necrosis; K80.00 Calculus of gallbladder with acute cholecystitis without obstruction; R18.8 Other ascites; G35 Multiple sclerosis; R65.20 Severe sepsis without septic shock; E11.22 Type 2 diabetes mellitus with diabetic chronic kidney disease; I25.10 Atherosclerotic heart disease of native coronary artery without angina pectoris; N31.9 Neuromuscular dysfunction of bladder, unspecified; F32.A Depression, unspecified; D64.9 Anemia, unspecified; K21.9 Gastro-esophageal reflux disease without esophagitis; I12.9 Hypertensive chronic kidney disease with stage 1 through stage 4 chronic kidney disease, or unspecified chronic kidney disease; G25.81 Restless legs syndrome; K59.09 Other constipation; R74.01 Elevation of levels of liver transaminase levels; E78.5 Hyperlipidemia, unspecified; N18.31 Chronic kidney disease, stage 3a; N40.0 Benign prostatic hyperplasia without lower urinary tract symptoms; Z95.1 Presence of aortocoronary bypass graft; Z99.3 Dependence on wheelchair; Z79.82 Long term (current) use of aspirin; Z79.4 Long term (current) use of insulin; Z79.899 Other long term (current) drug therapy; Z88.8 Allergy status to other drugs, medicaments and biological substances

== ENCOUNTER 2023-07-27 11:39 | Inpatient (IN) | payer MEDICARE, OTHER ==
[~2023-07-27] VITALS: Ht 162.6 cm; Wt 68.5 kg
[2023-07-27 14:20] VITALS: BP 105/69; TEMP 99.4; O2SAT 96
[2023-07-27] MEDS ORDERED: GLATIRAMER ACETATE 40 MG SC SCH (15:00)
[2023-07-27] MEDS ORDERED: DEXTROSE 50% 50ML SYRINGE IV PRN (15:00)
[2023-07-27] MEDS ORDERED: ACETAMINOPHEN TAB 650MG DOSE (2X325MG) PO PRN (15:00)
[2023-07-27] MEDS ORDERED: GLUCOSE 4GM CHEW TABLET PO PRN (15:00)
[2023-07-27] MEDS ORDERED: GLUCAGON INJ 1MG VIAL SC PRN (15:00)
[2023-07-27] MEDS: INSULIN LISPRO (NovoLOG) PER UNIT SC SCH ×2 (17:09→19:52)
[2023-07-27] MEDS: rOPINIRole 1MG TAB PO SCH (19:51)
[2023-07-27] MEDS: ROSUVASTATIN 10 MG TAB (CRESTOR) PO SCH (19:51)
[2023-07-27] MEDS: DOCUSATE SODIUM 100MG CAPSULE PO SCH (19:51)
[2023-07-27] MEDS: HEPARIN SOD (PORCINE) 5000UNITS/ML 1ML VIAL/SYRINGE SQ SCH (19:52)
[2023-07-27 20:00] VITALS: BP 128/72; TEMP 98.2; O2SAT 93
[2023-07-28 06:01] VITALS: BP 117/67; TEMP 98.2; O2SAT 95
[2023-07-28] MEDS: INSULIN LISPRO (NovoLOG) PER UNIT SC SCH ×4 (07:06→20:47)
[2023-07-28] MEDS: OMEPRAZOLE 20MG CAP PO SCH (07:06)
[2023-07-28] MEDS: HEPARIN SOD (PORCINE) 5000UNITS/ML 1ML VIAL/SYRINGE SQ SCH ×2 (07:06→20:22)
[2023-07-28] MEDS: SITagliptin 50 MG TAB (JANUVIA) PO SCH (07:07)
[2023-07-28] MEDS: ASPIRIN ENTERIC 325MG TAB PO SCH (07:07)
[2023-07-28] MEDS: DOCUSATE SODIUM 100MG CAPSULE PO SCH ×2 (07:07→20:22)
[2023-07-28] MEDS: VITAMIN D (CHOLECALCIFEROL) 400 INTERNATIONAL UNITS TAB PO SCH (07:07)
[2023-07-28 08:49] LABS: BILIRUBIN,TOTAL 0.6 MG/DL (0.3-1.2); CALCIUM LEVEL 8.8 MG/DL (8.3-10.6); CREATININE FOR GFR 1.88 MG/DL (0.70-1.30); MAGNESIUM LEVEL 1.8 MG/DL (1.8-2.4); POTASSIUM SERUM 4.4 MMOL/L (3.5-5.1); TOTAL PROTEIN 6.2 G/DL (5.7-8.2)
[2023-07-28] MEDS ORDERED: FUROSEMIDE 40MG/4ML VIAL IV SCH (09:00)
[2023-07-28] MEDS ORDERED: LORATADINE 5 MG HALF-TAB PO PRN (13:40)
[2023-07-28 14:00] VITALS: BP 123/68; TEMP 97.9; O2SAT 95
[2023-07-28 19:14] VITALS: BP 108/58; TEMP 98.6; O2SAT 93
[2023-07-28] MEDS: rOPINIRole 1MG TAB PO SCH (20:22)
[2023-07-28] MEDS: ROSUVASTATIN 10 MG TAB (CRESTOR) PO SCH (20:22)
[2023-07-29 06:17] VITALS: BP 114/58; TEMP 98.5; O2SAT 94
[2023-07-29] MEDS ORDERED: METHOTREXATE 2.5MG TAB PO SCH (09:00)
[2023-07-29] MEDS: ASPIRIN ENTERIC 325MG TAB PO SCH (09:26)
[2023-07-29] MEDS: SITagliptin 50 MG TAB (JANUVIA) PO SCH (09:26)
[2023-07-29] MEDS: VITAMIN D (CHOLECALCIFEROL) 400 INTERNATIONAL UNITS TAB PO SCH (09:26)
[2023-07-29] MEDS: DOCUSATE SODIUM 100MG CAPSULE PO SCH ×2 (09:26→20:46)
[2023-07-29] MEDS: OMEPRAZOLE 20MG CAP PO SCH (09:26)
[2023-07-29] MEDS: HEPARIN SOD (PORCINE) 5000UNITS/ML 1ML VIAL/SYRINGE SQ SCH ×2 (09:27→20:47)
[2023-07-29] MEDS: INSULIN LISPRO (NovoLOG) PER UNIT SC SCH ×4 (09:27→20:47)
[2023-07-29] MEDS: GLATIRAMER ACETATE SC SCH (09:28)
[2023-07-29 14:00] VITALS: BP 122/70; TEMP 98.2; O2SAT 96
[2023-07-29 20:00] VITALS: BP 123/66; TEMP 97.2; O2SAT 97
[2023-07-29] MEDS: rOPINIRole 1MG TAB PO SCH (20:46)
[2023-07-29] MEDS: ROSUVASTATIN 10 MG TAB (CRESTOR) PO SCH (20:46)
[2023-07-30 06:00] VITALS: BP 125/70; TEMP 98; O2SAT 97
[2023-07-30 06:53] LABS: HEMATOCRIT 30.6 % (42.0-52.0); HEMOGLOBIN 9.9 g/dl (13.5-17.5); MEAN CORPUSCULAR HEMOGLOBIN 30.5 pg (27.0-33.0); MEAN CORPUSCULAR HGB CONC 32.4 g/dl (32.0-36.5); MEAN CORPUSCULAR VOLUME 94.2 fl (80.0-96.0); PLATELET COUNT, AUTOMATED 366 10^3/uL (150-450); RED BLOOD COUNT 3.25 10^6/uL (4.30-6.10); WHITE BLOOD COUNT 11.5 10^3/uL (4.0-10.0)
[2023-07-30] MEDS: INSULIN LISPRO (NovoLOG) PER UNIT SC SCH ×4 (09:19→20:19)
[2023-07-30] MEDS: OMEPRAZOLE 20MG CAP PO SCH (09:20)
[2023-07-30] MEDS: HEPARIN SOD (PORCINE) 5000UNITS/ML 1ML VIAL/SYRINGE SQ SCH ×2 (09:20→20:26)
[2023-07-30] MEDS: SITagliptin 50 MG TAB (JANUVIA) PO SCH (09:20)
[2023-07-30] MEDS: ASPIRIN ENTERIC 325MG TAB PO SCH (09:20)
[2023-07-30] MEDS: VITAMIN D (CHOLECALCIFEROL) 400 INTERNATIONAL UNITS TAB PO SCH (09:20)
[2023-07-30] MEDS: DOCUSATE SODIUM 100MG CAPSULE PO SCH ×2 (09:20→20:26)
[2023-07-30 14:00] VITALS: BP 140/76; TEMP 98.3; O2SAT 94
[2023-07-30 20:00] VITALS: BP 127/65; TEMP 98.1; O2SAT 93
[2023-07-30] MEDS: rOPINIRole 1MG TAB PO SCH (20:26)
[2023-07-30] MEDS: ROSUVASTATIN 10 MG TAB (CRESTOR) PO SCH (20:26)
[2023-07-31 06:00] VITALS: BP 119/65; TEMP 98.2; O2SAT 95
[2023-07-31] MEDS: INSULIN LISPRO (NovoLOG) PER UNIT SC SCH ×4 (09:22→20:08)
[2023-07-31] MEDS: GLATIRAMER ACETATE SC SCH (09:23)
[2023-07-31] MEDS: HEPARIN SOD (PORCINE) 5000UNITS/ML 1ML VIAL/SYRINGE SQ SCH ×2 (09:23→20:43)
[2023-07-31] MEDS: VITAMIN D (CHOLECALCIFEROL) 400 INTERNATIONAL UNITS TAB PO SCH (09:24)
[2023-07-31] MEDS: SITagliptin 50 MG TAB (JANUVIA) PO SCH (09:24)
[2023-07-31] MEDS: DOCUSATE SODIUM 100MG CAPSULE PO SCH ×2 (09:24→20:42)
[2023-07-31] MEDS: OMEPRAZOLE 20MG CAP PO SCH (09:24)
[2023-07-31] MEDS: ASPIRIN ENTERIC 325MG TAB PO SCH (09:24)
[2023-07-31 14:00] VITALS: BP 108/59; TEMP 97.6; O2SAT 94
[2023-07-31] MEDS ORDERED: BISACODYL 10MG SUPP PR PRN (14:10)
[2023-07-31] MEDS: DICLOFENAC EPOLAMINE 1.3% PATCH TOP SCH (17:53)
[2023-07-31 20:00] VITALS: BP 138/80; TEMP 97.8; O2SAT 95
[2023-07-31] MEDS: rOPINIRole 1MG TAB PO SCH (20:42)
[2023-07-31] MEDS: ROSUVASTATIN 10 MG TAB (CRESTOR) PO SCH (20:43)
[2023-08-01] MEDS: DICLOFENAC EPOLAMINE 1.3% PATCH TOP SCH ×2 (05:48→15:00)
[2023-08-01 06:00] VITALS: BP 129/72; TEMP 97.9; O2SAT 93
[2023-08-01] MEDS: HEPARIN SOD (PORCINE) 5000UNITS/ML 1ML VIAL/SYRINGE SQ SCH ×2 (09:27→20:39)
[2023-08-01] MEDS: INSULIN LISPRO (NovoLOG) PER UNIT SC SCH ×4 (09:27→20:39)
[2023-08-01] MEDS: OMEPRAZOLE 20MG CAP PO SCH (09:27)
[2023-08-01] MEDS: DOCUSATE SODIUM 100MG CAPSULE PO SCH ×2 (09:27→20:39)
[2023-08-01] MEDS: ASPIRIN ENTERIC 325MG TAB PO SCH (09:27)
[2023-08-01] MEDS: SITagliptin 50 MG TAB (JANUVIA) PO SCH (09:27)
[2023-08-01] MEDS: VITAMIN D (CHOLECALCIFEROL) 400 INTERNATIONAL UNITS TAB PO SCH (09:27)
[2023-08-01 14:00] VITALS: BP 130/72; TEMP 98.1; O2SAT 96
[2023-08-01 19:57] VITALS: BP 111/59; TEMP 97.8; O2SAT 98
[2023-08-01] MEDS: rOPINIRole 1MG TAB PO SCH (20:39)
[2023-08-01] MEDS: ROSUVASTATIN 10 MG TAB (CRESTOR) PO SCH (20:39)
[2023-08-02] MEDS: DICLOFENAC EPOLAMINE 1.3% PATCH TOP SCH ×2 (03:00→14:05)
[2023-08-02 05:37] VITALS: BP 115/70; TEMP 97.5; O2SAT 95
[2023-08-02 05:45] LABS: HEMATOCRIT 30.4 % (42.0-52.0); MEAN CORPUSCULAR HGB CONC 32.9 g/dl (32.0-36.5); MEAN CORPUSCULAR VOLUME 91.3 fl (80.0-96.0); PLATELET COUNT, AUTOMATED 425 10^3/uL (150-450); RED BLOOD COUNT 3.33 10^6/uL (4.30-6.10); WHITE BLOOD COUNT 9.5 10^3/uL (4.0-10.0)
[2023-08-02] MEDS: DOCUSATE SODIUM 100MG CAPSULE PO SCH ×2 (07:33→20:40)
[2023-08-02] MEDS: OMEPRAZOLE 20MG CAP PO SCH (07:33)
[2023-08-02] MEDS: VITAMIN D (CHOLECALCIFEROL) 400 INTERNATIONAL UNITS TAB PO SCH (07:33)
[2023-08-02] MEDS: INSULIN LISPRO (NovoLOG) PER UNIT SC SCH ×4 (07:33→20:23)
[2023-08-02] MEDS: ASPIRIN ENTERIC 325MG TAB PO SCH (07:33)
[2023-08-02] MEDS: SITagliptin 50 MG TAB (JANUVIA) PO SCH (07:33)
[2023-08-02] MEDS: HEPARIN SOD (PORCINE) 5000UNITS/ML 1ML VIAL/SYRINGE SQ SCH ×2 (07:34→20:40)
[2023-08-02 11:48] LABS: BLOOD UREA NITROGEN 35 MG/DL (7-21); CREATININE FOR GFR 1.8 MG/DL (0.7-1.5); GLOMERULAR FILTRATION RATE 38.9 (>42); GLUCOSE, FASTING 121 MG/DL
[2023-08-02 11:49] LABS: ALKALINE PHOSPHATASE 172 U/L (40-129); ALT/SGPT 31 U/L (1-41); AST/SGOT 31 U/L (5-40); BILIRUBIN,TOTAL < 0.7 MG/DL (0.2-1.3); CALCIUM LEVEL 9.1 MG/DL (8.8-10.2); CARBON DIOXIDE LEVEL 25 MEQ/L (22-30); CHLORIDE LEVEL 101 MEQ/L (98-107); POTASSIUM SERUM 4.9 MEQ/L (3.6-5.0); SODIUM LEVEL 139 MEQ/L (134-153)
[2023-08-02 11:50] LABS: ALBUMIN 2.9 G/DL (3.9-5.0); TOTAL PROTEIN 6.1 G/DL (6.3-8.2)
[2023-08-02 14:00] VITALS: BP 125/60; TEMP 98.3; O2SAT 97
[2023-08-02 20:31] VITALS: BP 122/71; TEMP 98.3; O2SAT 96
[2023-08-02] MEDS: rOPINIRole 1MG TAB PO SCH (20:40)
[2023-08-02] MEDS: ROSUVASTATIN 10 MG TAB (CRESTOR) PO SCH (20:40)
[2023-08-03] MEDS: DICLOFENAC EPOLAMINE 1.3% PATCH TOP SCH ×2 (03:00→15:00)
[2023-08-03 06:00] VITALS: BP 113/72; TEMP 98.1; O2SAT 95
[2023-08-03] MEDS: INSULIN LISPRO (NovoLOG) PER UNIT SC SCH ×4 (09:11→20:39)
[2023-08-03] MEDS: VITAMIN D (CHOLECALCIFEROL) 400 INTERNATIONAL UNITS TAB PO SCH (09:11)
[2023-08-03] MEDS: HEPARIN SOD (PORCINE) 5000UNITS/ML 1ML VIAL/SYRINGE SQ SCH ×2 (09:11→20:39)
[2023-08-03] MEDS: SITagliptin 50 MG TAB (JANUVIA) PO SCH (09:12)
[2023-08-03] MEDS: DOCUSATE SODIUM 100MG CAPSULE PO SCH ×2 (09:12→20:38)
[2023-08-03] MEDS: ASPIRIN ENTERIC 325MG TAB PO SCH (09:12)
[2023-08-03] MEDS: OMEPRAZOLE 20MG CAP PO SCH (09:12)
[2023-08-03] MEDS: GLATIRAMER ACETATE SC SCH (09:12)
[2023-08-03] MEDS ORDERED: CALAMINE LOTION 177 ML BTL TOP PRN (12:40)
[2023-08-03] MEDS ORDERED: VITAD400CA PO (13:40)
[2023-08-03] MEDS ORDERED: BISA10SU PR (13:40)
[2023-08-03 14:00] VITALS: BP 110/60; TEMP 97.9; O2SAT 95
[2023-08-03 20:00] VITALS: BP 120/66; TEMP 97.3; O2SAT 96
[2023-08-03] MEDS: ROSUVASTATIN 10 MG TAB (CRESTOR) PO SCH (20:38)
[2023-08-03] MEDS: rOPINIRole 1MG TAB PO SCH (20:38)
[2023-08-04] MEDS: DICLOFENAC EPOLAMINE 1.3% PATCH TOP SCH (03:00)
[2023-08-04 06:00] VITALS: BP 138/66; TEMP 97.5; O2SAT 95
[2023-08-04] MEDS: SITagliptin 50 MG TAB (JANUVIA) PO SCH (08:38)
[2023-08-04] MEDS: ASPIRIN ENTERIC 325MG TAB PO SCH (08:38)
[2023-08-04] MEDS: HEPARIN SOD (PORCINE) 5000UNITS/ML 1ML VIAL/SYRINGE SQ SCH (08:38)
[2023-08-04] MEDS: VITAMIN D (CHOLECALCIFEROL) 400 INTERNATIONAL UNITS TAB PO SCH (08:38)
[2023-08-04] MEDS: DOCUSATE SODIUM 100MG CAPSULE PO SCH (08:38)
[2023-08-04] MEDS: OMEPRAZOLE 20MG CAP PO SCH (08:38)
[2023-08-04] MEDS: INSULIN LISPRO (NovoLOG) PER UNIT SC SCH (08:39)
== END 2023-08-04 10:10 | disposition home health service (06) | DRG 58 ==
LOC: M PM&R 14:20
PROVIDERS: ADMIT Student in an Organized Health Care Education/Training Program; ATTEND Student in an Organized Health Care Education/Training Program
DX: G35 Multiple sclerosis (principal); J96.01 Acute respiratory failure with hypoxia; D84.821 Immunodeficiency due to drugs; K59.2 Neurogenic bowel, not elsewhere classified; N17.9 Acute kidney failure, unspecified; N31.9 Neuromuscular dysfunction of bladder, unspecified; K59.09 Other constipation; I25.10 Atherosclerotic heart disease of native coronary artery without angina pectoris; I12.9 Hypertensive chronic kidney disease with stage 1 through stage 4 chronic kidney disease, or unspecified chronic kidney disease; E78.5 Hyperlipidemia, unspecified; N18.9 Chronic kidney disease, unspecified; E11.22 Type 2 diabetes mellitus with diabetic chronic kidney disease; G25.81 Restless legs syndrome; M47.812 Spondylosis without myelopathy or radiculopathy, cervical region; M47.816 Spondylosis without myelopathy or radiculopathy, lumbar region; K21.9 Gastro-esophageal reflux disease without esophagitis; F32.A Depression, unspecified; D50.9 Iron deficiency anemia, unspecified; E55.9 Vitamin D deficiency, unspecified; D63.8 Anemia in other chronic diseases classified elsewhere; E11.65 Type 2 diabetes mellitus with hyperglycemia; R94.31 Abnormal electrocardiogram [ECG] [EKG]; H91.93 Unspecified hearing loss, bilateral; E29.1 Testicular hypofunction; M17.0 Bilateral primary osteoarthritis of knee; Z74.09 Other reduced mobility; Z74.1 Need for assistance with personal care; Z95.1 Presence of aortocoronary bypass graft; Z90.49 Acquired absence of other specified parts of digestive tract; Z79.82 Long term (current) use of aspirin; Z79.899 Other long term (current) drug therapy; Z88.8 Allergy status to other drugs, medicaments and biological substances; Z87.442 Personal history of urinary calculi

== ENCOUNTER → 2023-08-13 | Outpatient (REF) | payer MEDICARE, OTHER, MEDICAID ==
[~2023-08-13] MED LIST changes: +BISA10SU PR; +VITAD400CA PO
[2023-08-13 17:15] LABS: APPEARANCE, URINE CLOUDY (CLEAR); BACTERIA, URINE AUTO 1+ (NEGATIVE); BILIRUBIN, URINE AUTO NEGATIVE (NEGATIVE); BLOOD, URINE BLOOD 2+ (NEGATIVE); COLOR, URINE YELLOW (YELLOW); GLUCOSE, URINE (UA) AUTO NEGATIVE (NEGATIVE); KETONE, URINE AUTO NEGATIVE (NEGATIVE); LEUKOCYTE ESTERASE, URINE AUTO 3+ (NEGATIVE); MUCUS, URINE SMALL (NEGATIVE); NITRITE, URINE AUTO NEGATIVE (NEGATIVE); PROTEIN, URINE AUTO 2+ mg/dL (NEGATIVE); RBC, URINE AUTO 20 /HPF (0-3); SQUAMOUS EPITHELIAL CELL UR AU 0 /HPF (0-6); UROBILINOGEN, URINE AUTO 0.2 mg/dL (0.0-2.0); WBC, URINE AUTO 177 /HPF (0-3)
== END ==
LOC: M SFHCADAM 16:02
PROVIDERS: ATTEND Family Medicine
DX: E11.49 Type 2 diabetes mellitus with other diabetic neurological complication (principal); I87.2 Venous insufficiency (chronic) (peripheral); G35 Multiple sclerosis; F41.8 Other specified anxiety disorders; H61.23 Impacted cerumen, bilateral; Z28.21 Immunization not carried out because of patient refusal; Z79.899 Other long term (current) drug therapy

== ENCOUNTER → 2023-09-29 | Outpatient (CLI) | payer MEDICARE, OTHER, MEDICAID ==
[2023-09-29 16:11] LABS: BASO % 0.4 % (0.0-1.0); EOS # 0.4 10^3/uL (0.0-0.5); EOS % 3.1 % (0.0-3.0); HEMATOCRIT 39.2 % (42.0-52.0); HEMOGLOBIN 12.7 g/dl (13.5-17.5); LYMPH # 1.9 10^3/uL (1.5-5.0); LYMPH % 16.7 % (24.0-44.0); MEAN CORPUSCULAR HEMOGLOBIN 30.3 pg (27.0-33.0); MEAN CORPUSCULAR HGB CONC 32.4 g/dl (32.0-36.5); MEAN CORPUSCULAR VOLUME 93.6 fl (80.0-96.0); MONO # 0.8 10^3/uL (0.0-0.8); MONO % 7.4 % (2.0-8.0); NEUTROPHILS # 8.1 10^3/uL (1.5-8.5); PLATELET COUNT, AUTOMATED 247 10^3/uL (150-450); RED BLOOD COUNT 4.19 10^6/uL (4.30-6.10); WHITE BLOOD COUNT 11.3 10^3/uL (4.0-10.0)
[2023-09-29 16:19] LABS: ALBUMIN 3.2 G/DL (3.2-5.2); ALKALINE PHOSPHATASE 99 U/L (46-116); ALT/SGPT 24 U/L (7.0-40); AST/SGOT 23 U/L (<34); BILIRUBIN,TOTAL 0.3 MG/DL (0.3-1.2); BLOOD UREA NITROGEN 34 MG/DL (9-23); CALCIUM LEVEL 9.7 MG/DL (8.3-10.6); CARBON DIOXIDE LEVEL 30 MMOL/L (20-31); CHLORIDE LEVEL 101 MMOL/L (98-107); CREATININE FOR GFR 1.51 MG/DL (0.70-1.30); GLOMERULAR FILTRATION RATE 47.7 (>42); GLUCOSE, FASTING 171 MG/DL (74-106); POTASSIUM SERUM 3.4 MMOL/L (3.5-5.1); SODIUM LEVEL 138 MMOL/L (136-145)
[2023-09-29 16:21] LABS: HEPATITIS B SURFACE ANTIBODY POSITIVE (POSITIVE)
== END ==
LOC: M PLALAB 13:16
PROVIDERS: ATTEND Psychiatry & Neurology Neurology
DX: B18.2 Chronic viral hepatitis C (principal)

== ENCOUNTER → 2023-10-29 | Outpatient (REF) | payer MEDICARE, OTHER, MEDICAID | LOC: M SFHCADAM 14:36 | PROVIDERS: ATTEND Family Medicine | DX: E11.9 Type 2 diabetes mellitus without complications (principal); E55.9 Vitamin D deficiency, unspecified; N18.32 Chronic kidney disease, stage 3b; G72.81 Critical illness myopathy; I25.10 Atherosclerotic heart disease of native coronary artery without angina pectoris; F41.8 Other specified anxiety disorders ==

== ENCOUNTER → 2023-11-17 | Outpatient (CLI) | payer MEDICARE, OTHER, MEDICAID ==
[2023-11-17 13:01] LABS: HEMATOCRIT 41.1 % (42.0-52.0); HEMOGLOBIN 13.3 g/dl (13.5-17.5); MEAN CORPUSCULAR HEMOGLOBIN 30.3 pg (27.0-33.0); MEAN CORPUSCULAR HGB CONC 32.4 g/dl (32.0-36.5); MEAN CORPUSCULAR VOLUME 93.6 fl (80.0-96.0); PLATELET COUNT, AUTOMATED 265 10^3/uL (150-450); RED BLOOD COUNT 4.39 10^6/uL (4.30-6.10); WHITE BLOOD COUNT 8.5 10^3/uL (4.0-10.0)
[2023-11-17 13:33] LABS: ALBUMIN 3.1 G/DL (3.2-5.2); BILIRUBIN,TOTAL 0.3 MG/DL (0.3-1.2); CALCIUM LEVEL 9.1 MG/DL (8.3-10.6); CHOLESTEROL RISK RATIO 3.41 (<5); CREATININE FOR GFR 1.4 MG/DL (0.70-1.30); FREE T4 1.02 NG/DL (0.89-1.76); HDL CHOLESTEROL 35.7 MG/DL (>40); LDL CHOLESTEROL 60.7 MG/DL (<100); NON-HDL-C 86.3 MG/DL; POTASSIUM SERUM 3.5 MMOL/L (3.5-5.1); THYROID STIMULATING HORMONE 2.323 uIU/ML (0.55-4.78); TOTAL PROTEIN 6.9 G/DL (5.7-8.2)
[2023-11-17 14:23] LABS: HEMOGLOBIN A1c 8.2 % (4.0-6.0)
== END ==
LOC: M LAB 12:22
PROVIDERS: ATTEND Family Medicine
DX: N18.32 Chronic kidney disease, stage 3b (principal); E07.9 Disorder of thyroid, unspecified; Z79.899 Other long term (current) drug therapy

== ENCOUNTER → 2023-12-07 | Outpatient (REF) | payer MEDICARE, OTHER, MEDICAID | LOC: M SFHCADAM 14:08 | PROVIDERS: ATTEND Family Medicine | DX: R50.9 Fever, unspecified (principal) ==

== ENCOUNTER → 2024-01-12 | Outpatient (CLI) | payer MEDICARE, OTHER, MEDICAID | LOC: M ADAMS 14:47 | PROVIDERS: ATTEND Family Medicine | DX: M47.816 Spondylosis without myelopathy or radiculopathy, lumbar region (principal) ==

== ENCOUNTER → 2024-02-05 | Outpatient (CLI) | payer MEDICARE, OTHER, MEDICAID | LOC: M RAD 11:14 | PROVIDERS: ATTEND Physician Assistant | DX: G45.9 Transient cerebral ischemic attack, unspecified (principal) ==

== ENCOUNTER → 2024-05-05 | Outpatient (REF) | payer MEDICARE, OTHER, MEDICAID ==
[~2024-05-05] MED LIST changes: -ROSU40TA4 PO; +ROSU40TA63 PO
[2024-05-05 19:30] LABS: HEMOGLOBIN A1c 6.4 % (4.0-6.0)
[2024-05-05 19:53] LABS: CALCIUM LEVEL 9.2 MG/DL (8.3-10.6); CREATININE FOR GFR 1.59 MG/DL (0.70-1.30); GLOMERULAR FILTRATION RATE 44.8 (>35); POTASSIUM SERUM 4.3 MMOL/L (3.5-5.1)
== END ==
LOC: M SFHCADAM 12:55
PROVIDERS: ATTEND Family Medicine
DX: E11.622 Type 2 diabetes mellitus with other skin ulcer (principal)

== ENCOUNTER → 2024-08-26 | Outpatient (CLI) | payer MEDICARE, OTHER, MEDICAID ==
[~2024-08-26] MED LIST changes: -ROSU40TA63 PO; +ROSU40TA81 PO
== END ==
LOC: M PLAIMG 11:05
PROVIDERS: ATTEND Urology
DX: N20.0 Calculus of kidney (principal); K59.00 Constipation, unspecified

== ENCOUNTER → 2024-09-01 | Outpatient (REF) | payer MEDICARE, OTHER, MEDICAID ==
[2024-09-01 19:18] LABS: HEMATOCRIT 41.9 % (42.0-52.0); HEMOGLOBIN 13.5 g/dl (13.5-17.5); MEAN CORPUSCULAR HEMOGLOBIN 31.2 pg (27.0-33.0); MEAN CORPUSCULAR HGB CONC 32.2 g/dl (32.0-36.5); MEAN CORPUSCULAR VOLUME 96.8 fl (80.0-96.0); PLATELET COUNT, AUTOMATED 231 10^3/uL (150-450); RED BLOOD COUNT 4.33 10^6/uL (4.30-6.10); WHITE BLOOD COUNT 12.4 10^3/uL (4.0-10.0)
[2024-09-01 19:39] LABS: ALBUMIN 3.5 G/DL (3.2-5.2); BILIRUBIN,TOTAL 0.6 MG/DL (0.3-1.2); CALCIUM LEVEL 9.8 MG/DL (8.3-10.6); CHOLESTEROL RISK RATIO 4.09 (<5); CREATININE FOR GFR 1.62 MG/DL (0.70-1.30); GLOMERULAR FILTRATION RATE 43.9 (>35); HDL CHOLESTEROL 35.2 MG/DL (>40); HEMOGLOBIN A1c 6.4 % (4.0-6.0); LDL CHOLESTEROL 71.4 MG/DL (<100); NON-HDL-C 108.8 MG/DL; POTASSIUM SERUM 4.1 MMOL/L (3.5-5.1); TOTAL PROTEIN 7.4 G/DL (5.7-8.2)
== END ==
LOC: M SFHCADAM 11:35
PROVIDERS: ATTEND Family Medicine
DX: E11.49 Type 2 diabetes mellitus with other diabetic neurological complication (principal); N18.32 Chronic kidney disease, stage 3b; I25.10 Atherosclerotic heart disease of native coronary artery without angina pectoris

== ENCOUNTER 2024-10-19 18:27 | Inpatient (IN) | payer MEDICARE, OTHER ==
[~2024-10-19] VITALS: Ht 162.6 cm; Wt 73.0 kg
[2024-10-19 19:09] LABS: BASO % 0.2 % (0.0-1.0); EOS % 0.2 % (0.0-3.0); HEMATOCRIT 36.8 % (42.0-52.0); HEMOGLOBIN 12.7 g/dl (13.5-17.5); LYMPH # 0.5 10^3/uL (1.5-5.0); LYMPH % 2.9 % (24.0-44.0); MEAN CORPUSCULAR HEMOGLOBIN 32.4 pg (27.0-33.0); MEAN CORPUSCULAR HGB CONC 34.5 g/dl (32.0-36.5); MEAN CORPUSCULAR VOLUME 93.9 fl (80.0-96.0); MONO % 6.4 % (2.0-8.0); NEUTROPHILS # 14.2 10^3/uL (1.5-8.5); NEUTROPHILS % 89.3 % (36.0-66.0); PLATELET COUNT, AUTOMATED 172 10^3/uL (150-450); RED BLOOD COUNT 3.92 10^6/uL (4.30-6.10); WHITE BLOOD COUNT 15.9 10^3/uL (4.0-10.0)
[2024-10-19] MEDS: ACETAMINOPHEN *IV* 1,000 MG in IV 1 EA IV ONE (19:19)
[2024-10-19 19:39] LABS: ALBUMIN 2.8 G/DL (3.2-5.2); BILIRUBIN,DIRECT 0.5 MG/DL (<0.4); BILIRUBIN,TOTAL 0.9 MG/DL (0.3-1.2); CALCIUM LEVEL 8.8 MG/DL (8.3-10.6); CREATININE FOR GFR 2.29 MG/DL (0.70-1.30); GLOMERULAR FILTRATION RATE 29.4 (>35); POTASSIUM SERUM 3.2 MMOL/L (3.5-5.1); TOTAL PROTEIN 6.6 G/DL (5.7-8.2)
[2024-10-19 19:41] LABS: THYROID STIMULATING HORMONE 2.904 uIU/ML (0.55-4.78); THYROXINE (T4) 8.3 UG/DL (4.5-10.9)
[2024-10-19] MEDS: NS (Normal Saline) 0.9% 1,000 ML IV ONE (21:10)
[2024-10-19] MEDS: NS (Normal Saline) 0.9% 1,000 ML IV SCH (22:15)
[2024-10-19 23:45] LABS: KETONE, URINE AUTO RFX NEGATIVE (NEGATIVE); NITRITE, URINE AUTO RFX NEGATIVE (NEGATIVE); RBC, URINE AUTO RFX 7 /HPF (0-3); SQUAM EPITHELIAL CELL UR AURFX 0 /HPF (0-6)
[2024-10-19 23:49] LABS: LEUKOCYTE ESTERASE UR AUTO RFX 3+ (NEGATIVE); WBC, URINE AUTO RFX 89 /HPF (0-3)
[2024-10-20] VITALS (7 sets, daily range): BP systolic 92–113; BP diastolic 40–59; TEMP 98.1–99; O2SAT 94–96
[2024-10-20] MEDS: VANCOMYCIN HCL 1,500 MG, VIAL MATE ADAPTER 1 EACH in NS 500 ML IV ONE (00:35)
[2024-10-20] MEDS: SODIUM CHLORIDE 0.9% 1000 ML IV ONE (01:40)
[2024-10-20] MEDS ORDERED: MEROPENEM INJ 2 GM in NS 100 ML IV SCH (01:40)
[2024-10-20] MEDS: NS (Normal Saline) 0.9% 1,000 ML IV SCH (02:32)
[2024-10-20] MEDS: POTASSIUM CHLORIDE 10MEQ SR TABLET PO ONE (02:33)
[2024-10-20] MEDS ORDERED: D400400C PO (02:58)
[2024-10-20] MEDS ORDERED: ROSU40TA81 PO (02:58)
[2024-10-20] MEDS ORDERED: DULO1CAP6 PO (02:58)
[2024-10-20] MEDS ORDERED: METO1TAB32 PO (02:58)
[2024-10-20] MEDS ORDERED: BACL10TA2 PO (02:58)
[2024-10-20] MEDS ORDERED: CHLO125TA PO (02:58)
[2024-10-20] MEDS ORDERED: OMEP1CAP73 PO (02:58)
[2024-10-20] MEDS ORDERED: JANU100T PO (02:58)
[2024-10-20] MEDS ORDERED: BAYE325T2 PO (02:58)
[2024-10-20] MEDS ORDERED: GLIM1TAB84 PO (02:58)
[2024-10-20] MEDS ORDERED: GLAT40IN3 SQ (02:58)
[2024-10-20] MEDS ORDERED: HOME MED LIST COMPLETE! XX SCH (03:00)
[2024-10-20] MEDS ORDERED: METOCLOPRAMIDE INJ 10MG/2ML VIAL IV PRN (03:05)
[2024-10-20 03:14] LABS: CREATININE,RANDOM URINE 74.7 MG/DL
[2024-10-20] MEDS: MEROPENEM INJ 1 GM in IV 1 EA IV SCH (03:19)
[2024-10-20] MEDS ORDERED: DEXTROSE 50% 50ML SYRINGE IV PRN (03:20)
[2024-10-20] MEDS ORDERED: GLUCAGON INJ 1MG VIAL SC PRN (03:20)
[2024-10-20] MEDS ORDERED: GLUCOSE 4 GM CHEW PO PRN (03:20)
[2024-10-20 07:23] LABS: HEMATOCRIT 36.1 % (42.0-52.0); HEMOGLOBIN 11.7 g/dl (13.5-17.5); MEAN CORPUSCULAR HEMOGLOBIN 31.4 pg (27.0-33.0); MEAN CORPUSCULAR HGB CONC 32.4 g/dl (32.0-36.5); MEAN CORPUSCULAR VOLUME 96.8 fl (80.0-96.0); PLATELET COUNT, AUTOMATED 154 10^3/uL (150-450); RED BLOOD COUNT 3.73 10^6/uL (4.30-6.10); WHITE BLOOD COUNT 11.8 10^3/uL (4.0-10.0)
[2024-10-20] MEDS: INSULIN LISPRO (NovoLOG) PER UNIT SC SCH ×2 (07:30→21:00)
[2024-10-20 07:50] LABS: ALBUMIN 2.4 G/DL (3.2-5.2); BILIRUBIN,TOTAL 0.5 MG/DL (0.3-1.2); CALCIUM LEVEL 8.3 MG/DL (8.3-10.6); CREATININE FOR GFR 2.37 MG/DL (0.70-1.30); GLOMERULAR FILTRATION RATE 28.3 (>35); POTASSIUM SERUM 3.7 MMOL/L (3.5-5.1); TOTAL PROTEIN 5.9 G/DL (5.7-8.2)
[2024-10-20] MEDS: DULoxetine 30MG CAPSULE (CYMBALTA) PO SCH (08:06)
[2024-10-20] MEDS: ASPIRIN ENTERIC 325MG TAB PO SCH (08:06)
[2024-10-20] MEDS: ENOXAPARIN 30MG/0.3ML SYRINGE (J1650 PER 10MG) SC SCH (08:07)
[2024-10-20] MEDS: UNRESOLVED PATIENT OWN MED ORDER XX SCH (09:00)
[2024-10-20] MEDS ORDERED: PIPERACILLIN/TAZOBACTAM SOD 2.25 GM in DEXTROSE 5% (D5W) ADV/MINI-BAG 50 ML IV SCH (15:00)
[2024-10-20] MEDS: AMPICILLIN SOD/SULBACTAM SOD 3 GM in SODIUM CHLORIDE 0.9% 100ML ADD 100 ML IV SCH (15:28)
[2024-10-20 16:25] LABS: PROCALCITONIN 3.89 ng/ml
[2024-10-20] MEDS: LACTOBACILLUS ACIDOPHILUS CAP (BACID) PO SCH (17:20)
[2024-10-20] MEDS: LevoFLOXacin 500 MG TABLET PO SCH (17:20)
[2024-10-20] MEDS: LR 1,000 ML IV ONE ×2 (17:23→19:07)
[2024-10-20] MEDS: MIDODRINE 5 MG TAB PO ONE (18:18)
[2024-10-20 18:20] LABS: CALCIUM LEVEL 7.8 MG/DL (8.3-10.6); CREATININE FOR GFR 2.09 MG/DL (0.70-1.30); GLOMERULAR FILTRATION RATE 32.7 (>35); POTASSIUM SERUM 3.5 MMOL/L (3.5-5.1)
[2024-10-20] MEDS ORDERED: VANCOMYCIN HCL 1,000 MG in IV FLUID PLACE HOLDER 1 EA IV SCH (18:45)
[2024-10-20] MEDS: HYDROCORTISONE 100MG/2ML VIAL IV SCH (20:52)
[2024-10-20] MEDS: CEFEPIME HCL 2 GM in DEXTROSE 5% (D5W) ADV/MINI-BAG 50 ML IV SCH (20:53)
[2024-10-20] MEDS: ROSUVASTATIN 10 MG TAB (CRESTOR) PO SCH (20:54)
[2024-10-20] MEDS: VANCOMYCIN HCL 750 MG, VIAL MATE ADAPTER 1 EACH in NS 250 ML IV SCH (20:55)
[2024-10-20] MEDS ORDERED: BACLOFEN 5MG PER 1/2 TABLET PO SCH (21:00)
[2024-10-20] MEDS ORDERED: rOPINIRole 1MG TAB PO SCH (21:00)
[2024-10-21] VITALS (7 sets, daily range): BP systolic 110–131; BP diastolic 55–66; TEMP 97.3–98.4; O2SAT 92–95
[2024-10-21] MEDS: OMEPRAZOLE 20MG CAP PO SCH (09:28)
[2024-10-21] MEDS: HYDROCORTISONE 100MG/2ML VIAL IV SCH (17:49)
[2024-10-21] MEDS: GLATOPA SQ SCH (18:00)
[2024-10-21 19:59] LABS: VANCOMYCIN RANDOM 13.1 UG/ML
[2024-10-21 20:00] LABS: CALCIUM LEVEL 8.2 MG/DL (8.3-10.6); CREATININE FOR GFR 1.91 MG/DL (0.70-1.30); GLOMERULAR FILTRATION RATE 36.3 (>35); POTASSIUM SERUM 3.2 MMOL/L (3.5-5.1)
[2024-10-22 03:16] VITALS: BP 131/72; TEMP 98.2; O2SAT 94
[2024-10-22] MEDS: KCL 10MEQ/100ML SWI (KRUN) 10 MEQ in IV 1 EA IV SCH (03:58)
[2024-10-22] MEDS: POTASSIUM CHLORIDE 10MEQ SR TABLET PO ONE ×2 (05:26→14:52)
[2024-10-22 05:32] LABS: HEMATOCRIT 31.4 % (42.0-52.0); HEMOGLOBIN 10.6 g/dl (13.5-17.5); MEAN CORPUSCULAR HEMOGLOBIN 31.5 pg (27.0-33.0); MEAN CORPUSCULAR HGB CONC 33.8 g/dl (32.0-36.5); MEAN CORPUSCULAR VOLUME 93.2 fl (80.0-96.0); PLATELET COUNT, AUTOMATED 221 10^3/uL (150-450); RED BLOOD COUNT 3.37 10^6/uL (4.30-6.10); WHITE BLOOD COUNT 10.9 10^3/uL (4.0-10.0)
[2024-10-22 06:04] LABS: CALCIUM LEVEL 8.6 MG/DL (8.3-10.6); CREATININE FOR GFR 1.87 MG/DL (0.70-1.30); GLOMERULAR FILTRATION RATE 37.2 (>35); MAGNESIUM LEVEL 1.6 MG/DL (1.8-2.4); POTASSIUM SERUM 3.1 MMOL/L (3.5-5.1)
[2024-10-22 08:02] VITALS: BP 159/78; TEMP 98; O2SAT 94
[2024-10-22] MEDS: LACTOBACILLUS ACIDOPHILUS CAP (BACID) PO SCH (08:35)
[2024-10-22 11:50] VITALS: BP 142/71; TEMP 97.9; O2SAT 93
[2024-10-22] MEDS: MAG SULF 1GM/100ML (MAG RUN) 1 GM in IV 1 EA IV ONE (14:52)
[2024-10-22 16:41] VITALS: BP 150/79; TEMP 98; O2SAT 94
[2024-10-22] MEDS: HYDROCORTISONE 100MG/2ML VIAL IV SCH (17:49)
[2024-10-22 19:55] VITALS: BP 138/73; TEMP 98.3; O2SAT 95
[2024-10-22] MEDS: cefTRIAXone SOD 1 GM in DEXTROSE 5% (D5W) ADV/MINI-BAG 50 ML IV SCH (20:10)
[2024-10-22 22:37] LABS: CALCIUM LEVEL 8.5 MG/DL (8.3-10.6); CREATININE FOR GFR 1.8 MG/DL (0.70-1.30); GLOMERULAR FILTRATION RATE 38.8 (>35); POTASSIUM SERUM 3.1 MMOL/L (3.5-5.1)
[2024-10-22 23:23] VITALS: BP 115/64; TEMP 97.2; O2SAT 94
[2024-10-23 03:05] VITALS: BP 116/64; TEMP 97.8; O2SAT 94
[2024-10-23 05:21] LABS: BASO % 0.2 % (0.0-1.0); EOS # 0.1 10^3/uL (0.0-0.5); EOS % 0.6 % (0.0-3.0); HEMATOCRIT 32.4 % (42.0-52.0); LYMPH # 1.6 10^3/uL (1.5-5.0); LYMPH % 16.3 % (24.0-44.0); MEAN CORPUSCULAR HEMOGLOBIN 31.4 pg (27.0-33.0); MEAN CORPUSCULAR VOLUME 92.6 fl (80.0-96.0); MONO # 0.2 10^3/uL (0.0-0.8); MONO % 1.7 % (2.0-8.0); NEUTROPHILS % 80.6 % (36.0-66.0); PLATELET COUNT, AUTOMATED 238 10^3/uL (150-450); WHITE BLOOD COUNT 9.9 10^3/uL (4.0-10.0)
[2024-10-23 05:46] LABS: CREATININE FOR GFR 1.83 MG/DL (0.70-1.30); GLOMERULAR FILTRATION RATE 38.1 (>35)
[2024-10-23 07:21] VITALS: BP 144/65; TEMP 98.1; O2SAT 94
[2024-10-23] MEDS: cefTRIAXone SOD 1 GM in DEXTROSE 5% (D5W) ADV/MINI-BAG 50 ML IV ONE (10:09)
[2024-10-23 12:05] VITALS: BP 105/59; TEMP 97.7; O2SAT 96
[2024-10-23 16:32] VITALS: BP 138/73; TEMP 98.1; O2SAT 95
[2024-10-23] MEDS: POTASSIUM CHLORIDE 10MEQ SR TABLET PO ONE ×2 (18:37→19:17)
[2024-10-23 19:09] VITALS: BP 107/57; TEMP 97.7; O2SAT 95
[2024-10-23 19:59] LABS: CALCIUM LEVEL 8.3 MG/DL (8.3-10.6); CREATININE FOR GFR 1.72 MG/DL (0.70-1.30); GLOMERULAR FILTRATION RATE 40.9 (>35); POTASSIUM SERUM 3.2 MMOL/L (3.5-5.1)
[2024-10-23 23:26] VITALS: BP 114/65; TEMP 98.1; O2SAT 96
[2024-10-24 03:27] VITALS: BP 120/64; TEMP 97.8; O2SAT 95
[2024-10-24 06:34] LABS: BASO % 0.5 % (0.0-1.0); EOS # 0.5 10^3/uL (0.0-0.5); EOS % 7.1 % (0.0-3.0); HEMATOCRIT 36.3 % (42.0-52.0); HEMOGLOBIN 12.3 g/dl (13.5-17.5); LYMPH # 1.4 10^3/uL (1.5-5.0); LYMPH % 21.5 % (24.0-44.0); MEAN CORPUSCULAR HEMOGLOBIN 30.9 pg (27.0-33.0); MEAN CORPUSCULAR HGB CONC 33.9 g/dl (32.0-36.5); MEAN CORPUSCULAR VOLUME 91.2 fl (80.0-96.0); MONO # 0.4 10^3/uL (0.0-0.8); MONO % 5.4 % (2.0-8.0); NEUTROPHILS # 4.2 10^3/uL (1.5-8.5); NEUTROPHILS % 64.3 % (36.0-66.0); PLATELET COUNT, AUTOMATED 242 10^3/uL (150-450); RED BLOOD COUNT 3.98 10^6/uL (4.30-6.10); WHITE BLOOD COUNT 6.5 10^3/uL (4.0-10.0)
[2024-10-24 06:53] LABS: CALCIUM LEVEL 8.3 MG/DL (8.3-10.6); CREATININE FOR GFR 1.69 MG/DL (0.70-1.30); GLOMERULAR FILTRATION RATE 41.8 (>35)
[2024-10-24 08:00] VITALS: BP 110/69; TEMP 97.2; O2SAT 97
[2024-10-24] MEDS: POTASSIUM CHLORIDE 10MEQ SR TABLET PO SCH (09:00)
[2024-10-24] MEDS: CEFUROXIME 500 MG TAB PO SCH (09:10)
[2024-10-24 19:41] VITALS: BP 92/55; TEMP 98.3; O2SAT 95
[2024-10-25 07:57] LABS: BASO # 0.1 10^3/uL (0.0-0.2); BASO % 0.6 % (0.0-1.0); EOS # 0.8 10^3/uL (0.0-0.5); EOS % 8.6 % (0.0-3.0); HEMATOCRIT 38.3 % (42.0-52.0); HEMOGLOBIN 12.8 g/dl (13.5-17.5); LYMPH # 1.7 10^3/uL (1.5-5.0); LYMPH % 18.9 % (24.0-44.0); MEAN CORPUSCULAR HEMOGLOBIN 31.1 pg (27.0-33.0); MEAN CORPUSCULAR HGB CONC 33.4 g/dl (32.0-36.5); MEAN CORPUSCULAR VOLUME 93.2 fl (80.0-96.0); MONO # 0.6 10^3/uL (0.0-0.8); MONO % 6.8 % (2.0-8.0); NEUTROPHILS # 5.7 10^3/uL (1.5-8.5); NEUTROPHILS % 62.5 % (36.0-66.0); PLATELET COUNT, AUTOMATED 274 10^3/uL (150-450); RED BLOOD COUNT 4.11 10^6/uL (4.30-6.10); WHITE BLOOD COUNT 9.1 10^3/uL (4.0-10.0)
[2024-10-25 08:02] VITALS: BP 130/77; TEMP 98.2; O2SAT 95
[2024-10-25 08:11] LABS: CALCIUM LEVEL 8.2 MG/DL (8.3-10.6); CREATININE FOR GFR 1.6 MG/DL (0.70-1.30); GLOMERULAR FILTRATION RATE 44.5 (>35); POTASSIUM SERUM 3.8 MMOL/L (3.5-5.1)
[2024-10-25 19:32] VITALS: BP 108/56; TEMP 97.7; O2SAT 95
[2024-10-26 07:52] VITALS: BP 120/71; TEMP 97.8; O2SAT 95
[2024-10-26 08:00] VITALS: BP 120/71; PULSE 88; O2SAT 95
[2024-10-26 08:16] LABS: BASO # 0.1 10^3/uL (0.0-0.2); BASO % 0.5 % (0.0-1.0); EOS # 1.3 10^3/uL (0.0-0.5); EOS % 9.9 % (0.0-3.0); LYMPH # 1.8 10^3/uL (1.5-5.0); LYMPH % 14.5 % (24.0-44.0); MEAN CORPUSCULAR HEMOGLOBIN 31.6 pg (27.0-33.0); MEAN CORPUSCULAR HGB CONC 33.3 g/dl (32.0-36.5); MEAN CORPUSCULAR VOLUME 94.9 fl (80.0-96.0); MONO # 0.9 10^3/uL (0.0-0.8); MONO % 6.8 % (2.0-8.0); NEUTROPHILS # 8.4 10^3/uL (1.5-8.5); NEUTROPHILS % 65.8 % (36.0-66.0); PLATELET COUNT, AUTOMATED 273 10^3/uL (150-450); RED BLOOD COUNT 4.11 10^6/uL (4.30-6.10); WHITE BLOOD COUNT 12.7 10^3/uL (4.0-10.0)
[2024-10-26 08:45] LABS: CALCIUM LEVEL 8.7 MG/DL (8.3-10.6); CREATININE FOR GFR 1.61 MG/DL (0.70-1.30); GLOMERULAR FILTRATION RATE 44.2 (>35); POTASSIUM SERUM 4.5 MMOL/L (3.5-5.1)
[2024-10-26] MEDS ORDERED: LEVO1TAB40 PO (10:44)
[2024-10-26] MEDS ORDERED: PROB250C PO (10:44)
== END 2024-10-26 12:43 | DRG 698 ==
LOC: EDBD 18:27 → M ED 18:27 → M ED INP 10-20 01:37 → M MSPAV 10-20 12:35 → M PCU 10-20 19:27
PROVIDERS: ADMIT Student in an Organized Health Care Education/Training Program; ATTEND General Practice
DX: T83.518A Infection and inflammatory reaction due to other urinary catheter, initial encounter (principal); A41.9 Sepsis, unspecified organism; R65.20 Severe sepsis without septic shock; N17.9 Acute kidney failure, unspecified; N39.0 Urinary tract infection, site not specified; G35 Multiple sclerosis; N31.9 Neuromuscular dysfunction of bladder, unspecified; N18.9 Chronic kidney disease, unspecified; D63.1 Anemia in chronic kidney disease; I12.9 Hypertensive chronic kidney disease with stage 1 through stage 4 chronic kidney disease, or unspecified chronic kidney disease; E11.22 Type 2 diabetes mellitus with diabetic chronic kidney disease; I25.10 Atherosclerotic heart disease of native coronary artery without angina pectoris; N40.0 Benign prostatic hyperplasia without lower urinary tract symptoms; E78.5 Hyperlipidemia, unspecified; G25.81 Restless legs syndrome; K21.9 Gastro-esophageal reflux disease without esophagitis; M17.0 Bilateral primary osteoarthritis of knee; E87.6 Hypokalemia; F32.A Depression, unspecified; K59.09 Other constipation; Z79.82 Long term (current) use of aspirin; Z79.899 Other long term (current) drug therapy; Z88.8 Allergy status to other drugs, medicaments and biological substances; Z95.5 Presence of coronary angioplasty implant and graft; Z66 Do not resuscitate

== ENCOUNTER → 2024-11-01 | Outpatient (REF) ==
[~2024-11-01] MED LIST changes: +BAYE325T2 PO; +CHLO125TA PO; +D400400C PO; +DULO1CAP6 PO; +GLAT40IN3 SQ; +GLIM1TAB84 PO; +LEVO1TAB40 PO; +METO1TAB32 PO; +PROB250C PO
[2024-11-01 15:20] LABS: BASO # 0.1 10^3/uL (0.0-0.2); BASO % 0.5 % (0.0-1.0); EOS # 0.6 10^3/uL (0.0-0.5); EOS % 4.5 % (0.0-3.0); HEMATOCRIT 38.3 % (42.0-52.0); HEMOGLOBIN 12.7 g/dl (13.5-17.5); LYMPH # 1.7 10^3/uL (1.5-5.0); LYMPH % 13.6 % (24.0-44.0); MEAN CORPUSCULAR HEMOGLOBIN 31.4 pg (27.0-33.0); MEAN CORPUSCULAR HGB CONC 33.2 g/dl (32.0-36.5); MEAN CORPUSCULAR VOLUME 94.6 fl (80.0-96.0); MONO % 8.3 % (2.0-8.0); NEUTROPHILS # 9.1 10^3/uL (1.5-8.5); NEUTROPHILS % 72.6 % (36.0-66.0); PLATELET COUNT, AUTOMATED 268 10^3/uL (150-450); RED BLOOD COUNT 4.05 10^6/uL (4.30-6.10); WHITE BLOOD COUNT 12.5 10^3/uL (4.0-10.0)
[2024-11-01 15:35] LABS: HEMOGLOBIN A1c 6.9 % (4.0-6.0)
[2024-11-01 15:44] LABS: CALCIUM LEVEL 8.9 MG/DL (8.3-10.6); CREATININE FOR GFR 1.63 MG/DL (0.70-1.30); GLOMERULAR FILTRATION RATE 43.6 (>35); POTASSIUM SERUM 4.2 MMOL/L (3.5-5.1)
== END ==
LOC: SKLAB2 14:36
PROVIDERS: ATTEND Internal Medicine
DX: N39.0 Urinary tract infection, site not specified (principal); I10 Essential (primary) hypertension; E11.9 Type 2 diabetes mellitus without complications

== ENCOUNTER → 2024-11-16 | Outpatient (REF) | payer MEDICAID, MEDICARE, OTHER ==
[2024-11-16 10:54] LABS: BASO % 0.3 % (0.0-1.0); EOS % 8.4 % (0.0-3.0); HEMOGLOBIN 13.1 g/dl (13.5-17.5); LYMPH # 1.3 10^3/uL (1.5-5.0); LYMPH % 11.3 % (24.0-44.0); MEAN CORPUSCULAR HEMOGLOBIN 30.6 pg (27.0-33.0); MEAN CORPUSCULAR VOLUME 95.8 fl (80.0-96.0); MONO # 1.1 10^3/uL (0.0-0.8); MONO % 9.2 % (2.0-8.0); NEUTROPHILS # 8.2 10^3/uL (1.5-8.5); NEUTROPHILS % 70.2 % (36.0-66.0); PLATELET COUNT, AUTOMATED 209 10^3/uL (150-450); RED BLOOD COUNT 4.28 10^6/uL (4.30-6.10); WHITE BLOOD COUNT 11.7 10^3/uL (4.0-10.0)
[2024-11-16 11:26] LABS: CALCIUM LEVEL 8.9 MG/DL (8.3-10.6); CREATININE FOR GFR 1.53 MG/DL (0.70-1.30); GLOMERULAR FILTRATION RATE 46.9 (>35); POTASSIUM SERUM 4.6 MMOL/L (3.5-5.1)
== END ==
LOC: SKLAB2 10:11
PROVIDERS: ATTEND Internal Medicine
DX: I10 Essential (primary) hypertension (principal)

== ENCOUNTER → 2024-12-28 | Outpatient (REF) | payer MEDICARE, OTHER, MEDICAID ==
[2024-12-28 18:40] LABS: CALCIUM LEVEL 9.3 MG/DL (8.3-10.6); CREATININE FOR GFR 1.77 MG/DL (0.70-1.30); GLOMERULAR FILTRATION RATE 39.6 (>35); POTASSIUM SERUM 3.5 MMOL/L (3.5-5.1)
== END ==
LOC: M SFHCADAM 11:24
PROVIDERS: ATTEND Family Medicine
DX: E11.49 Type 2 diabetes mellitus with other diabetic neurological complication (principal); N18.32 Chronic kidney disease, stage 3b

== ENCOUNTER → 2025-02-23 | Outpatient (REF) | payer MEDICARE, OTHER, MEDICAID ==
[~2025-02-23] MED LIST changes: -FLOM0.4C39 PO; +KETO120S5 TOP; -KETO2SHA8 TOP; +TAMS-18 PO
[2025-02-23 18:53] LABS: ALBUMIN 3.5 G/DL (3.2-5.2); BILIRUBIN,TOTAL 0.3 MG/DL (0.3-1.2); CALCIUM LEVEL 8.8 MG/DL (8.3-10.6); CHOLESTEROL RISK RATIO 3.89 (<5); CREATININE FOR GFR 1.63 MG/DL (0.70-1.30); GLOMERULAR FILTRATION RATE 42.1 (>35); HDL CHOLESTEROL 34.7 MG/DL (>40); LDL CHOLESTEROL 62.3 MG/DL (<100); NON-HDL-C 100.3 MG/DL; POTASSIUM SERUM 3.7 MMOL/L (3.5-5.1); TOTAL PROTEIN 7.2 G/DL (5.7-8.2)
[2025-02-23 19:03] LABS: HEMATOCRIT 42.1 % (42.0-52.0); HEMOGLOBIN 13.4 g/dl (13.5-17.5); MEAN CORPUSCULAR HEMOGLOBIN 31.2 pg (27.0-33.0); MEAN CORPUSCULAR HGB CONC 31.8 g/dl (32.0-36.5); MEAN CORPUSCULAR VOLUME 97.9 fl (80.0-96.0); PLATELET COUNT, AUTOMATED 280 10^3/uL (150-450); WHITE BLOOD COUNT 12.2 10^3/uL (4.0-10.0)
[2025-02-23 19:50] LABS: HEMOGLOBIN A1c 7.5 % (4.0-6.0)
== END ==
LOC: M SFHCADAM 11:30
PROVIDERS: ATTEND Family Medicine
DX: I12.9 Hypertensive chronic kidney disease with stage 1 through stage 4 chronic kidney disease, or unspecified chronic kidney disease (principal); E78.5 Hyperlipidemia, unspecified; E11.49 Type 2 diabetes mellitus with other diabetic neurological complication; N18.9 Chronic kidney disease, unspecified

== ENCOUNTER → 2025-05-08 | Outpatient (CLI) | payer MEDICARE, OTHER, MEDICAID ==
[~2025-05-08] MED LIST changes: +AMOX875T PO; +BACI1CAP PO; +LINE1TAB6 PO; +OXYC1TAB23 PO
== END ==
LOC: M ADAMS 15:10
PROVIDERS: ATTEND Family Medicine
DX: R09.89 Other specified symptoms and signs involving the circulatory and respiratory systems (principal)

== ENCOUNTER → 2025-05-10 | Outpatient (REF) | payer MEDICARE, OTHER, MEDICAID | LOC: M SFHCADAM 15:34 | PROVIDERS: ATTEND Family Medicine | DX: R19.7 Diarrhea, unspecified (principal) ==

== ENCOUNTER 2025-05-20 10:21 | Inpatient (IN) | payer MEDICARE, OTHER, MEDICAID ==
[~2025-05-20] VITALS: Ht 162.6 cm; Wt 76.0 kg
[2025-05-20] MEDS: LIDOCAINE 2% 5 ML JELLY UROJET TOP ONE (10:45)
[2025-05-20 10:58] LABS: VENOUS BASE EXCESS 0.3 (-2.0-2.0); VENOUS HCO3 23.5 MMOL/L (23.0-27.0); VENOUS O2 SATURATION 89.5 % (60.0-80.0); VENOUS PARTIAL PRESSURE CO2 33.7 mmHg (38.0-50.0); VENOUS PARTIAL PRESSURE O2 55.5 mmHg (30.0-50.0); VENOUS PH 7.461 UNITS (7.330-7.430); VENOUS STANDARD HCO3 24.6 MMOL/L; VENOUS TOTAL CO2 24.5 MMOL/L (24.0-28.0)
[2025-05-20 11:02] LABS: BASO # 0.0 10^3/uL (0.0-0.2); BASO % 0.2 % (0.0-1.0); EOS # 0.0 10^3/uL (0.0-0.5); EOS % 0.1 % (0.0-3.0); LYMPH # 0.4 10^3/uL (1.5-5.0); LYMPH % 2.2 % (24.0-44.0); MONO # 0.4 10^3/uL (0.0-0.8); MONO % 2.2 % (2.0-8.0); NEUTROPHILS # 17.2 10^3/uL (1.5-8.5); NEUTROPHILS % 94.9 % (36.0-66.0); PLATELET COUNT, AUTOMATED 200 10^3/uL (150-450)
[2025-05-20] MEDS: NS (Normal Saline) 0.9% 2,100 ML in IV 1 EA IV ONE (11:17)
[2025-05-20] MEDS: ACETAMINOPHEN 500 MG TAB PO ONE (11:18)
[2025-05-20 11:21] LABS: INR 1.25
[2025-05-20 11:29] LABS: ALT/SGPT 20.0 U/L (7.0-40); AST/SGOT 45.0 U/L (<34); CALCIUM LEVEL 8.8 MG/DL (8.3-10.6); CARBON DIOXIDE LEVEL 26.0 MMOL/L (20-31); CHLORIDE LEVEL 95.0 MMOL/L (98-107); CREATININE FOR GFR 3.03 MG/DL (0.70-1.30); GLOMERULAR FILTRATION RATE 20.0 (>35); POTASSIUM SERUM 4.2 MMOL/L (3.5-5.1); SODIUM LEVEL 137.0 MMOL/L (136-145)
[2025-05-20] MEDS: CEFEPIME HCL 2 GM in DEXTROSE 5% (D5W) ADV/MINI-BAG 50 ML IV ONE (11:42)
[2025-05-20 12:11] LABS: C REACTIVE PROTEIN QUANTITATIV 26.63 MG/DL (<1.0)
[2025-05-20 12:12] LABS: APPEARANCE, URINE HAZY (CLEAR); BACTERIA, URINE AUTO 1+ (NEGATIVE); BILIRUBIN, URINE AUTO NEGATIVE (NEGATIVE); BLOOD, URINE BLOOD 2+ (NEGATIVE); GLUCOSE, URINE (UA) AUTO NEGATIVE (NEGATIVE); KETONE, URINE AUTO NEGATIVE (NEGATIVE); LEUKOCYTE ESTERASE, URINE AUTO 3+ (NEGATIVE); NITRITE, URINE AUTO NEGATIVE (NEGATIVE); PROTEIN, URINE AUTO 1+ mg/dL (NEGATIVE); RBC, URINE AUTO 8 /HPF (0-3); SPECIFIC GRAVITY URINE AUTO 1.005 (1.002-1.035); SQUAMOUS EPITHELIAL CELL UR AU 0 /HPF (0-6); UROBILINOGEN, URINE AUTO 0.2 mg/dL (0.0-2.0); WBC, URINE AUTO 102 /HPF (0-3)
[2025-05-20] MEDS ORDERED: METR-265 PO (12:20)
[2025-05-20] MEDS ORDERED: HOME MED LIST COMPLETE! XX SCH (12:25)
[2025-05-20] MEDS ORDERED: DEXTROSE 50% 50 ML SYRINGE IV PRN (13:55)
[2025-05-20] MEDS ORDERED: GLUCOSE 4 GM CHEW PO PRN (13:55)
[2025-05-20] MEDS ORDERED: VANCOMYCIN HCL 1,000 MG in IV FLUID PLACE HOLDER 1 EA IV SCH (13:55)
[2025-05-20] MEDS ORDERED: GLUCAGON INJ 1 MG VIAL SC PRN (13:55)
[2025-05-20] MEDS ORDERED: CEFEPIME HCL 2 GM in DEXTROSE 5% (D5W) ADV/MINI-BAG 50 ML IV SCH (14:00)
[2025-05-20] MEDS ORDERED: ACETAMINOPHEN 325 MG TAB PO PRN (14:00)
[2025-05-20] MEDS ORDERED: MAALOX 30 ML SUSP *UDC PO PRN (14:00)
[2025-05-20] MEDS ORDERED: HEPARIN SOD 5000 UNITS/ML 1 ML VIAL/SYRINGE SC SCH (14:00)
[2025-05-20] MEDS ORDERED: ENTER DRUG NAME HERE (PATIENT'S OWN MED) SQ SCH (14:10)
[2025-05-20] MEDS ORDERED: NS (Normal Saline) 0.9% 1,000 ML IV SCH (14:10)
[2025-05-20] MEDS: NS 500 ML IV ONE (14:54)
[2025-05-20 17:09] VITALS: BP 111/61; TEMP 97; O2SAT 95
[2025-05-20] MEDS: VANCOMYCIN HCL 1,500 MG, VIAL MATE ADAPTER 1 EACH in NS 500 ML IV ONE (18:07)
[2025-05-20] MEDS: INSULIN LISPRO (NovoLOG) PER UNIT SC SCH ×2 (18:08→21:00)
[2025-05-20] MEDS: VANCOMYCIN 125MG CAPSULE PO SCH (18:25)
[2025-05-20 20:19] VITALS: BP 136/74; TEMP 97.5; O2SAT 94
[2025-05-20] MEDS: BACLOFEN 5 MG PER 1/2 TABLET PO SCH (21:47)
[2025-05-20] MEDS: HEPARIN SOD 5000 UNITS/ML 1 ML VIAL/SYRINGE SQ SCH (21:47)
[2025-05-21] MEDS ORDERED: CEFEPIME HCL 2 GM in DEXTROSE 5% (D5W) ADV/MINI-BAG 50 ML IV SCH
[2025-05-21 04:00] VITALS: BP 112/64; TEMP 97; O2SAT 94
[2025-05-21 06:33] LABS: BASO # 0.0 10^3/uL (0.0-0.2); BASO % 0.3 % (0.0-1.0); EOS # 0.0 10^3/uL (0.0-0.5); EOS % 0.3 % (0.0-3.0); LYMPH # 0.7 10^3/uL (1.5-5.0); LYMPH % 6.4 % (24.0-44.0); MONO # 0.6 10^3/uL (0.0-0.8); MONO % 5.9 % (2.0-8.0); NEUTROPHILS # 9.2 10^3/uL (1.5-8.5); NEUTROPHILS % 86.3 % (36.0-66.0); PLATELET COUNT, AUTOMATED 168 10^3/uL (150-450)
[2025-05-21 06:58] LABS: VANCOMYCIN RANDOM 18.1 UG/ML
[2025-05-21 07:05] LABS: CALCIUM LEVEL 8.0 MG/DL (8.3-10.6); CARBON DIOXIDE LEVEL 26.0 MMOL/L (20-31); CHLORIDE LEVEL 106.0 MMOL/L (98-107); CREATININE FOR GFR 3.16 MG/DL (0.70-1.30); GLOMERULAR FILTRATION RATE 19.0 (>35); POTASSIUM SERUM 3.0 MMOL/L (3.5-5.1); SODIUM LEVEL 144.0 MMOL/L (136-145)
[2025-05-21] MEDS ORDERED: METOPROLOL SUCC. 25 MG *XL* TAB PO SCH (09:00)
[2025-05-21] MEDS ORDERED: VANCOMYCIN 125MG CAPSULE PO SCH (09:00)
[2025-05-21] MEDS ORDERED: ASPIRIN ENTERIC 325 MG TAB PO SCH (09:00)
[2025-05-21] MEDS ORDERED: VANCOMYCIN HCL 500 MG in DEXTROSE 5% (D5W) MINI-BAG PLU 100 ML IV SCH (09:00)
[2025-05-21] MEDS: OMEPRAZOLE 20MG CAP PO SCH (09:16)
[2025-05-21] MEDS: ASPIRIN 81 MG CHEWABLE TABLET PO SCH (09:16)
[2025-05-21] MEDS: POTASSIUM CHLORIDE 10MEQ SR TABLET PO ONE (09:17)
[2025-05-21] MEDS: NS (Normal Saline) 0.9% 1,000 ML IV SCH (10:13)
[2025-05-21 11:38] VITALS: BP 105/54; TEMP 96.8; O2SAT 94
[2025-05-21] MEDS: CEFEPIME HCL 1 GM in DEXTROSE 5% (D5W) ADV/MINI-BAG 50 ML IV SCH (12:35)
[2025-05-21] MEDS: VANCOMYCIN HCL 500 MG in DEXTROSE 5% (D5W) MINI-BAG PLU 100 ML IV SCH (18:19)
[2025-05-21 20:01] VITALS: BP 105/58; TEMP 97.8; O2SAT 95
[2025-05-22 04:07] VITALS: BP 112/61; TEMP 97; O2SAT 94
[2025-05-22 07:13] LABS: BASO # 0.0 10^3/uL (0.0-0.2); BASO % 0.4 % (0.0-1.0); EOS # 0.3 10^3/uL (0.0-0.5); EOS % 3.8 % (0.0-3.0); LYMPH # 0.9 10^3/uL (1.5-5.0); LYMPH % 12.7 % (24.0-44.0); MONO # 0.7 10^3/uL (0.0-0.8); MONO % 9.7 % (2.0-8.0); NEUTROPHILS # 5.2 10^3/uL (1.5-8.5); NEUTROPHILS % 72.4 % (36.0-66.0); PLATELET COUNT, AUTOMATED 116 10^3/uL (150-450)
[2025-05-22 08:03] LABS: CALCIUM LEVEL 7.8 MG/DL (8.3-10.6); CARBON DIOXIDE LEVEL 25.0 MMOL/L (20-31); CHLORIDE LEVEL 108.0 MMOL/L (98-107); CREATININE FOR GFR 2.82 MG/DL (0.70-1.30); GLOMERULAR FILTRATION RATE 21.8 (>35); POTASSIUM SERUM 3.4 MMOL/L (3.5-5.1); SODIUM LEVEL 145.0 MMOL/L (136-145)
[2025-05-22] MEDS: POTASSIUM CHLORIDE 10MEQ SR TABLET PO ONE (09:15)
[2025-05-22 12:00] VITALS: BP 109/62; TEMP 96.8; O2SAT 96
[2025-05-22 20:30] VITALS: BP 112/62; TEMP 96.8; O2SAT 96
[2025-05-23 03:36] VITALS: BP 114/65; TEMP 96.8; O2SAT 96
[2025-05-23 06:27] LABS: BASO # 0.0 10^3/uL (0.0-0.2); BASO % 0.3 % (0.0-1.0); EOS # 0.4 10^3/uL (0.0-0.5); EOS % 4.5 % (0.0-3.0); LYMPH # 1.3 10^3/uL (1.5-5.0); LYMPH % 13.8 % (24.0-44.0); MONO # 0.8 10^3/uL (0.0-0.8); MONO % 8.7 % (2.0-8.0); NEUTROPHILS # 6.5 10^3/uL (1.5-8.5); NEUTROPHILS % 72.1 % (36.0-66.0); PLATELET COUNT, AUTOMATED 199 10^3/uL (150-450)
[2025-05-23 06:44] LABS: CALCIUM LEVEL 8.3 MG/DL (8.3-10.6); CARBON DIOXIDE LEVEL 25.0 MMOL/L (20-31); CHLORIDE LEVEL 107.0 MMOL/L (98-107); CREATININE FOR GFR 2.39 MG/DL (0.70-1.30); GLOMERULAR FILTRATION RATE 26.6 (>35); POTASSIUM SERUM 4.1 MMOL/L (3.5-5.1); SODIUM LEVEL 145.0 MMOL/L (136-145)
[2025-05-23 08:46] LABS: VANCOMYCIN RANDOM 16.0 UG/ML
[2025-05-23 11:14] VITALS: BP 115/65; TEMP 96.8; O2SAT 95
[2025-05-23] MEDS: cefTRIAXone SOD 2 GM in DEXTROSE 5% (D5W) ADV/MINI-BAG 50 ML IV SCH (12:51)
[2025-05-23 21:01] VITALS: BP 118/64; TEMP 96.8; O2SAT 95
[2025-05-24 03:08] VITALS: BP 114/64; TEMP 96.8; O2SAT 96
[2025-05-24 06:19] LABS: BASO # 0.1 10^3/uL (0.0-0.2); BASO % 0.4 % (0.0-1.0); EOS # 0.6 10^3/uL (0.0-0.5); EOS % 5.5 % (0.0-3.0); LYMPH # 1.7 10^3/uL (1.5-5.0); LYMPH % 14.5 % (24.0-44.0); MONO # 0.9 10^3/uL (0.0-0.8); MONO % 7.7 % (2.0-8.0); NEUTROPHILS # 8.2 10^3/uL (1.5-8.5); NEUTROPHILS % 71.1 % (36.0-66.0); PLATELET COUNT, AUTOMATED 241 10^3/uL (150-450)
[2025-05-24 06:39] LABS: CALCIUM LEVEL 8.9 MG/DL (8.3-10.6); CARBON DIOXIDE LEVEL 26.0 MMOL/L (20-31); CHLORIDE LEVEL 105.0 MMOL/L (98-107); CREATININE FOR GFR 2.42 MG/DL (0.70-1.30); GLOMERULAR FILTRATION RATE 26.2 (>35); POTASSIUM SERUM 4.1 MMOL/L (3.5-5.1); SODIUM LEVEL 145.0 MMOL/L (136-145)
[2025-05-24 12:00] VITALS: BP 114/66; TEMP 97.2; O2SAT 95
[2025-05-24 14:01] LABS: C REACTIVE PROTEIN QUANTITATIV 4.38 MG/DL (<1.0)
[2025-05-24 20:00] VITALS: BP 113/69; TEMP 97; O2SAT 96
[2025-05-25 04:00] VITALS: BP 97/59; TEMP 97; O2SAT 94
[2025-05-25 06:20] LABS: BASO # 0.1 10^3/uL (0.0-0.2); BASO % 0.5 % (0.0-1.0); EOS # 0.6 10^3/uL (0.0-0.5); EOS % 4.7 % (0.0-3.0); LYMPH # 2.0 10^3/uL (1.5-5.0); LYMPH % 16.8 % (24.0-44.0); MONO # 1.0 10^3/uL (0.0-0.8); MONO % 8.4 % (2.0-8.0); NEUTROPHILS # 8.0 10^3/uL (1.5-8.5); NEUTROPHILS % 68.7 % (36.0-66.0); PLATELET COUNT, AUTOMATED 291 10^3/uL (150-450)
[2025-05-25 06:45] LABS: CALCIUM LEVEL 8.8 MG/DL (8.3-10.6); CARBON DIOXIDE LEVEL 27.0 MMOL/L (20-31); CHLORIDE LEVEL 107.0 MMOL/L (98-107); CREATININE FOR GFR 2.48 MG/DL (0.70-1.30); GLOMERULAR FILTRATION RATE 25.4 (>35); POTASSIUM SERUM 4.5 MMOL/L (3.5-5.1); SODIUM LEVEL 146.0 MMOL/L (136-145)
[2025-05-25] MEDS ORDERED: CEFD1CAP9 PO (11:25)
[2025-05-25] MEDS: CEFDINIR 300 MG CAP PO SCH (11:56)
[2025-05-25] MEDS ORDERED: CEFDINIR 300 MG CAP PO SCH (21:00)
[2025-05-26 00:02] LABS: MYCOPLASMA PNEUMONIAE IGG 1.89 (<=0.90); MYCOPLASMA PNEUMONIAE IGM 226.0 U/mL (<770)
[2025-05-26 01:27] LABS: URINE STREP PNEUMONIAE ANTIGEN Not Detected (Not Detected)
== END 2025-05-25 14:20 | DRG 698 ==
LOC: M ED 10:21 → M ED INP 13:53 → M MSPAV 17:00
PROVIDERS: ADMIT Internal Medicine Nephrology; ATTEND Internal Medicine Nephrology
DX: T83.518A Infection and inflammatory reaction due to other urinary catheter, initial encounter (principal); A41.9 Sepsis, unspecified organism; N39.0 Urinary tract infection, site not specified; N17.9 Acute kidney failure, unspecified; Y84.6 Urinary catheterization as the cause of abnormal reaction of the patient, or of later complication, without mention of misadventure at the time of the procedure; G35 Multiple sclerosis; N31.9 Neuromuscular dysfunction of bladder, unspecified; I25.10 Atherosclerotic heart disease of native coronary artery without angina pectoris; E11.22 Type 2 diabetes mellitus with diabetic chronic kidney disease; N18.30 Chronic kidney disease, stage 3 unspecified; G25.81 Restless legs syndrome; N40.0 Benign prostatic hyperplasia without lower urinary tract symptoms; R53.1 Weakness; I12.9 Hypertensive chronic kidney disease with stage 1 through stage 4 chronic kidney disease, or unspecified chronic kidney disease; E78.5 Hyperlipidemia, unspecified; Z66 Do not resuscitate; M47.812 Spondylosis without myelopathy or radiculopathy, cervical region; M47.816 Spondylosis without myelopathy or radiculopathy, lumbar region; E87.6 Hypokalemia; B96.20 Unspecified Escherichia coli [E. coli] as the cause of diseases classified elsewhere; K21.9 Gastro-esophageal reflux disease without esophagitis; F32.A Depression, unspecified; K59.09 Other constipation; D63.8 Anemia in other chronic diseases classified elsewhere; H91.93 Unspecified hearing loss, bilateral; M17.0 Bilateral primary osteoarthritis of knee; Z79.82 Long term (current) use of aspirin; Z95.1 Presence of aortocoronary bypass graft; Z79.84 Long term (current) use of oral hypoglycemic drugs; Z87.440 Personal history of urinary (tract) infections; Z79.899 Other long term (current) drug therapy; Z87.442 Personal history of urinary calculi; Z88.8 Allergy status to other drugs, medicaments and biological substances; Z96.0 Presence of urogenital implants

== ENCOUNTER → 2025-05-31 | Outpatient (REF) ==
[~2025-05-31] MED LIST changes: +CEFD1CAP9 PO; +METR-265 PO
[2025-05-31 09:16] LABS: BASO # 0.1 10^3/uL (0.0-0.2); BASO % 0.6 % (0.0-1.0); EOS # 0.6 10^3/uL (0.0-0.5); EOS % 4.0 % (0.0-3.0); LYMPH # 1.6 10^3/uL (1.5-5.0); LYMPH % 11.7 % (24.0-44.0); MONO # 1.2 10^3/uL (0.0-0.8); MONO % 8.5 % (2.0-8.0); NEUTROPHILS # 10.3 10^3/uL (1.5-8.5); NEUTROPHILS % 74.6 % (36.0-66.0); PLATELET COUNT, AUTOMATED 438 10^3/uL (150-450)
[2025-05-31 09:45] LABS: CALCIUM LEVEL 9.3 MG/DL (8.3-10.6); CARBON DIOXIDE LEVEL 25.0 MMOL/L (20-31); CHLORIDE LEVEL 108.0 MMOL/L (98-107); CREATININE FOR GFR 1.82 MG/DL (0.70-1.30); GLOMERULAR FILTRATION RATE 36.9 (>35); POTASSIUM SERUM 4.6 MMOL/L (3.5-5.1); SODIUM LEVEL 145.0 MMOL/L (136-145)
== END ==
LOC: SKLAB2 07:00
PROVIDERS: ATTEND Internal Medicine
DX: N18.9 Chronic kidney disease, unspecified (principal)

== ENCOUNTER → 2025-06-07 | Outpatient (REF) ==
[2025-06-07 09:01] LABS: BASO # 0.1 10^3/uL (0.0-0.2); BASO % 0.9 % (0.0-1.0); EOS # 0.7 10^3/uL (0.0-0.5); EOS % 8.3 % (0.0-3.0); LYMPH # 1.6 10^3/uL (1.5-5.0); LYMPH % 19.0 % (24.0-44.0); MONO # 0.9 10^3/uL (0.0-0.8); MONO % 10.0 % (2.0-8.0); NEUTROPHILS # 5.2 10^3/uL (1.5-8.5); NEUTROPHILS % 61.3 % (36.0-66.0); PLATELET COUNT, AUTOMATED 308 10^3/uL (150-450)
[2025-06-07 09:28] LABS: CALCIUM LEVEL 9.3 MG/DL (8.3-10.6); CARBON DIOXIDE LEVEL 25.0 MMOL/L (20-31); CHLORIDE LEVEL 105.0 MMOL/L (98-107); CREATININE FOR GFR 1.81 MG/DL (0.70-1.30); GLOMERULAR FILTRATION RATE 37.1 (>35); POTASSIUM SERUM 4.4 MMOL/L (3.5-5.1); SODIUM LEVEL 143.0 MMOL/L (136-145)
== END ==
LOC: SKLAB2 07:00
PROVIDERS: ATTEND Internal Medicine
DX: N18.9 Chronic kidney disease, unspecified (principal)

== ENCOUNTER → 2025-06-19 | Outpatient (REF) ==
[2025-06-19 14:09] LABS: APPEARANCE, URINE CLOUDY (CLEAR); BACTERIA, URINE AUTO 2+ (NEGATIVE); BILIRUBIN, URINE AUTO NEGATIVE (NEGATIVE); BLOOD, URINE BLOOD 2+ (NEGATIVE); GLUCOSE, URINE (UA) AUTO NEGATIVE (NEGATIVE); KETONE, URINE AUTO NEGATIVE (NEGATIVE); LEUKOCYTE ESTERASE, URINE AUTO 3+ (NEGATIVE); MUCUS, URINE SMALL (NEGATIVE); NITRITE, URINE AUTO NEGATIVE (NEGATIVE); PROTEIN, URINE AUTO 2+ mg/dL (NEGATIVE); RBC, URINE AUTO 71 /HPF (0-3); SPECIFIC GRAVITY URINE AUTO 1.013 (1.002-1.035); SQUAMOUS EPITHELIAL CELL UR AU 0 /HPF (0-6); UROBILINOGEN, URINE AUTO 0.2 mg/dL (0.0-2.0); WBC, URINE AUTO TNTC /HPF (0-3)
== END ==
LOC: SKLAB2 13:53
PROVIDERS: ATTEND Internal Medicine
DX: N32.9 Bladder disorder, unspecified (principal)

== ENCOUNTER → 2025-06-27 | Outpatient (REF) | payer MEDICARE, OTHER, MEDICAID ==
[2025-06-27 15:00] LABS: CALCIUM LEVEL 9.0 MG/DL (8.3-10.6); CARBON DIOXIDE LEVEL 28.0 MMOL/L (20-31); CHLORIDE LEVEL 98.0 MMOL/L (98-107); CREATININE FOR GFR 1.88 MG/DL (0.70-1.30); GLOMERULAR FILTRATION RATE 35.5 (>35); MAGNESIUM LEVEL 1.8 MG/DL (1.8-2.4); POTASSIUM SERUM 4.0 MMOL/L (3.5-5.1); SODIUM LEVEL 135.0 MMOL/L (136-145)
[2025-06-27 15:03] LABS: TOTAL 25(OH) VITAMIN D 53.1 NG/ML (20.0-100.0)
[2025-06-27 15:14] LABS: ESTIMATED AVERAGE GLUCOSE 169.0 MG/DL (60-110)
== END ==
LOC: M SFHCADAM 10:36
PROVIDERS: ATTEND Family Medicine
DX: I12.9 Hypertensive chronic kidney disease with stage 1 through stage 4 chronic kidney disease, or unspecified chronic kidney disease (principal); N18.32 Chronic kidney disease, stage 3b; E11.49 Type 2 diabetes mellitus with other diabetic neurological complication

== ENCOUNTER → 2025-06-28 | Outpatient (REF) | payer MEDICARE, OTHER, MEDICAID ==
[2025-06-28 18:13] LABS: PLATELET COUNT, AUTOMATED 272 10^3/uL (150-450)
[2025-06-28 18:20] LABS: ALT/SGPT 36.0 U/L (7.0-40); AST/SGOT 24.0 U/L (<34); CALCIUM LEVEL 9.0 MG/DL (8.3-10.6); CARBON DIOXIDE LEVEL 26.0 MMOL/L (20-31); CHLORIDE LEVEL 100.0 MMOL/L (98-107); CREATININE FOR GFR 1.88 MG/DL (0.70-1.30); GLOMERULAR FILTRATION RATE 35.5 (>35); POTASSIUM SERUM 4.1 MMOL/L (3.5-5.1); SODIUM LEVEL 137.0 MMOL/L (136-145)
== END ==
LOC: M SFHCADAM 10:13
PROVIDERS: ATTEND Urology
DX: N28.89 Other specified disorders of kidney and ureter (principal)

== ENCOUNTER → 2025-07-11 | Outpatient (CLI) | payer MEDICARE, OTHER, MEDICAID ==
[2025-07-11 12:25] LABS: BASO # 0.1 10^3/uL (0.0-0.2); BASO % 0.5 % (0.0-1.0); EOS # 0.5 10^3/uL (0.0-0.5); EOS % 4.3 % (0.0-3.0); LYMPH # 1.6 10^3/uL (1.5-5.0); LYMPH % 13.2 % (24.0-44.0); MONO # 1.1 10^3/uL (0.0-0.8); MONO % 9.0 % (2.0-8.0); NEUTROPHILS # 8.9 10^3/uL (1.5-8.5); NEUTROPHILS % 72.7 % (36.0-66.0); PLATELET COUNT, AUTOMATED 265 10^3/uL (150-450)
[2025-07-11 12:57] LABS: ALT/SGPT 25.0 U/L (7.0-40); AST/SGOT 26.0 U/L (<34); CALCIUM LEVEL 9.3 MG/DL (8.3-10.6); CARBON DIOXIDE LEVEL 29.0 MMOL/L (20-31); CHLORIDE LEVEL 98.0 MMOL/L (98-107); CREATININE FOR GFR 1.84 MG/DL (0.70-1.30); GLOMERULAR FILTRATION RATE 36.4 (>35); POTASSIUM SERUM 3.5 MMOL/L (3.5-5.1); SODIUM LEVEL 138.0 MMOL/L (136-145)
== END ==
LOC: M LAB 11:24
PROVIDERS: ATTEND Psychiatry & Neurology Neurology
DX: G35 Multiple sclerosis (principal); N28.89 Other specified disorders of kidney and ureter

== ENCOUNTER → 2025-07-11 | Outpatient (CLI) | payer MEDICARE, OTHER, MEDICAID | LOC: M LAB 11:27 | PROVIDERS: ATTEND Urology | DX: N28.89 Other specified disorders of kidney and ureter (principal) ==

== ENCOUNTER 2025-07-20 11:29 | Day surgery (SDC) | payer MEDICARE, OTHER ==
[~2025-07-20] VITALS: Ht 162.6 cm; Wt 72.4 kg
[~2025-07-20 11:29] MED LIST changes: -ALCL0.05 TOP; +ALCL0.057 TOP; -BACTDSTA; +SULF-8
[2025-07-20] MEDS ORDERED: LIDOCAINE 2% 100 MG/5 ML SDV (FOR ANES.) As Ordered ONE (11:48)
[2025-07-20] MEDS ORDERED: ONDANSETRON 4MG/2ML VIAL As Ordered ONE (11:48)
[2025-07-20] MEDS ORDERED: KETOROLAC 30 MG/ML 1 ML VIAL As Ordered ONE (11:48)
[2025-07-20] MEDS ORDERED: dexAMETHasone 4 MG/ML 1 ML VIAL As Ordered ONE (11:48)
[2025-07-20] MEDS: CIPROFLOXACIN 400 MG in IV 1 EA IV ONE (11:50)
[2025-07-20] MEDS: LR 1,000 ML IV SCH (12:25)
[2025-07-20] MEDS ORDERED: ACETAMINOPHEN 1000MG/100ML IV BAG As Ordered ONE (13:52)
[2025-07-20] MEDS ORDERED: PHENYLephrine 500MCG 5ML (100MCG/ML) SYRINGE As Ordered ONE (13:56)
[2025-07-20] MEDS: ISOVUE-300 61% 100 ML VIAL As Ordered ONE (14:00)
[2025-07-20] MEDS ORDERED: LR 1,000 ML IV SCH (14:30)
[2025-07-20] MEDS ORDERED: ONDANSETRON 4MG/2ML VIAL IV PRN (14:30)
[2025-07-20] MEDS ORDERED: HYDROMORPHONE HCL 0.5 MG/0.5 ML SYRINGE IV PRN (14:30)
[2025-07-20 16:26] VITALS: BP 118/64; TEMP 97.1; O2SAT 96
[2025-09-04] MEDS ORDERED: LEVO1TAB39 PO (11:35)
[2025-09-04] MEDS ORDERED: ROSU40TA81 PO (11:35)
[2025-09-04] MEDS ORDERED: ASPI-255 PO (11:35)
[2025-09-04] MEDS ORDERED: NITR100C2 PO (11:35)
== END 2025-07-20 16:29 | disposition home or self-care (01) ==
LOC: M SDC 11:29
PROVIDERS: ATTEND Urology
DX: C65.1 Malignant neoplasm of right renal pelvis (principal); N36.8 Other specified disorders of urethra; R33.9 Retention of urine, unspecified; Z96.0 Presence of urogenital implants; E11.9 Type 2 diabetes mellitus without complications; I25.10 Atherosclerotic heart disease of native coronary artery without angina pectoris; I10 Essential (primary) hypertension; G35.D Multiple sclerosis, unspecified; Z88.8 Allergy status to other drugs, medicaments and biological substances; Z79.899 Other long term (current) drug therapy
CPT/HCPCS: 52354; 74420; 88108; 88305; C1769; C2617; J0131; J0744; J1100; J1885; J2371; J2405; J3010; Q9967

== ENCOUNTER → 2025-09-13 | Outpatient (CLI) | payer MEDICARE, OTHER, MEDICAID ==
[~2025-09-13] MED LIST changes: +ASPI-255 PO; +LEVO1TAB39 PO; +NITR100C2 PO; +PYRI1TAB5 PO
[2025-09-13 14:37] LABS: PLATELET COUNT, AUTOMATED 187 10^3/uL (150-450)
[2025-09-13 15:02] LABS: ALT/SGPT 20.0 U/L (7.0-40); AST/SGOT 20.0 U/L (<34); CALCIUM LEVEL 9.1 MG/DL (8.3-10.6); CARBON DIOXIDE LEVEL 32.0 MMOL/L (20-31); CHLORIDE LEVEL 101.0 MMOL/L (98-107); CREATININE FOR GFR 1.94 MG/DL (0.70-1.30); GLOMERULAR FILTRATION RATE 34.1 (>35); POTASSIUM SERUM 3.9 MMOL/L (3.5-5.1); SODIUM LEVEL 143.0 MMOL/L (136-145)
== END ==
LOC: EEVIPCON 11:54 → M PLALAB 11:54
PROVIDERS: ATTEND Urology
DX: Z96.0 Presence of urogenital implants (principal)

== ENCOUNTER 2025-09-21 12:05 | Day surgery (SDC) | payer MEDICARE, OTHER, MEDICAID ==
[~2025-09-21] VITALS: Ht 167.6 cm; Wt 72.3 kg
[~2025-09-21 12:05] MED LIST changes: -PYRI1TAB5 PO; +ceFAZolin SOD 2 GM IV ONCE IV ONE
[2025-09-21] MEDS: LINEZOLID 600 MG in IV 1 EA IV ONE (14:04)
[2025-09-21] MEDS ORDERED: ETOMIDATE 20 MG/10 ML VIAL As Ordered ONE (14:42)
[2025-09-21] MEDS ORDERED: LIDOCAINE 2% 100 MG/5 ML SDV (FOR ANES.) As Ordered ONE (14:43)
[2025-09-21] MEDS ORDERED: ONDANSETRON 4MG/2ML VIAL As Ordered ONE (14:44)
[2025-09-21] MEDS ORDERED: ACETAMINOPHEN 1000MG/100ML IV BAG As Ordered ONE (15:18)
[2025-09-21] MEDS ORDERED: PHENYLephrine 500MCG 5ML (100MCG/ML) SYRINGE As Ordered ONE (15:23)
[2025-09-21] MEDS: ISOVUE-300 61% 100 ML VIAL As Ordered ONE (15:55)
[2025-09-21] MEDS ORDERED: MORPHINE 2 MG/ML 1 ML VIAL IV PRN (16:00)
[2025-09-21] MEDS ORDERED: ONDANSETRON 4MG/2ML VIAL IV PRN (16:00)
[2025-09-21] MEDS ORDERED: PYRI1TAB5 PO (16:12)
[2025-09-21 17:00] VITALS: BP 104/59; TEMP 97.3; O2SAT 95
== END 2025-09-21 17:22 | disposition home or self-care (01) ==
LOC: M SDC 12:05
PROVIDERS: ATTEND Urology
DX: N13.1 Hydronephrosis with ureteral stricture, not elsewhere classified (principal); N40.0 Benign prostatic hyperplasia without lower urinary tract symptoms; E11.40 Type 2 diabetes mellitus with diabetic neuropathy, unspecified; I10 Essential (primary) hypertension; I25.10 Atherosclerotic heart disease of native coronary artery without angina pectoris; G35.D Multiple sclerosis, unspecified; E78.00 Pure hypercholesterolemia, unspecified; Z79.899 Other long term (current) drug therapy; Z79.84 Long term (current) use of oral hypoglycemic drugs; Z79.82 Long term (current) use of aspirin; K21.9 Gastro-esophageal reflux disease without esophagitis; Z95.1 Presence of aortocoronary bypass graft; Z88.8 Allergy status to other drugs, medicaments and biological substances
CPT/HCPCS: 52332; 52344; 74420; C1769; C1894; C2617; J0131; J2020; J2371; J2405; J3010; Q9967

== ENCOUNTER → 2025-09-29 | Outpatient (REF) | payer MEDICARE, OTHER, MEDICAID ==
[~2025-09-29] MED LIST changes: +PYRI1TAB5 PO; -ceFAZolin SOD 2 GM IV ONCE IV ONE
[2025-09-29 17:39] LABS: PLATELET COUNT, AUTOMATED 280 10^3/uL (150-450)
[2025-09-29 18:43] LABS: ALT/SGPT 24.0 U/L (7.0-40); AST/SGOT 25.0 U/L (<34); CALCIUM LEVEL 9.2 MG/DL (8.3-10.6); CARBON DIOXIDE LEVEL 31.0 MMOL/L (20-31); CHLORIDE LEVEL 101.0 MMOL/L (98-107); CHOLESTEROL LEVEL 136.0 MG/DL (<200); CHOLESTEROL RISK RATIO 4.41 (<5); CREATININE FOR GFR 1.82 MG/DL (0.70-1.30); GLOMERULAR FILTRATION RATE 36.9 (>35); LDL CHOLESTEROL 40.0 MG/DL (<100); NON-HDL-C 105.2 MG/DL; POTASSIUM SERUM 4.1 MMOL/L (3.5-5.1); SODIUM LEVEL 142.0 MMOL/L (136-145); TRIGLYCERIDES LEVEL 326.0 MG/DL (<150)
[2025-09-29 18:53] LABS: ESTIMATED AVERAGE GLUCOSE 177.0 MG/DL (60-110)
== END ==
LOC: M SFHCADAM 13:32
PROVIDERS: ATTEND Family Medicine
DX: N18.32 Chronic kidney disease, stage 3b (principal); E11.49 Type 2 diabetes mellitus with other diabetic neurological complication; E78.5 Hyperlipidemia, unspecified